=== PATIENT | female | born 1930 | race Caucasian/White ===

== ENCOUNTER → 2016-10-01 | Outpatient (CLI) | payer BC ==
[~2016-10-01] MED LIST: AMX500 PO; ASCO1CAP3 PO; ASPI81TA28 PO; ATOR10TA88 PO; BIOF500T PO; BTP80 PO; CALC-354 PO; CHOL100010 PO; CLC100X PO; CLOP1TAB15 PO; CYAN30SU SL; FERR324T4 PO; FOLI1TAB7 PO; INSDGIPEN SC; INSU100I SQ; INSU1INJ23 SC; INSUINJ4 SC; ISOS30TA35 PO; LOSA50TA6 PO; LSX20 PO; METO25TA56 PO; MISCTAB78 PO; NEPA0.6D OPL; OFLO0.3S4 OPR; PRDFOPS OPR; VITA400C28 PO; VTMD1000 PO; [UNRECOGNIZED DRUG - OTHER] PO
[2016-10-02 05:44] LABS: ESTIMATED AVERAGE GLUCOSE 194 mg/dl; HA1C FLAG Normal (Normal)
== END | disposition home or self-care (01) ==
LOC: C.LAB1850 14:17
PROVIDERS: ATTEND Nurse Practitioner Family
DX: E11.9 Type 2 diabetes mellitus without complications (principal)

== ENCOUNTER → 2016-10-16 | Outpatient (CLI) | payer BC ==
--- NOTE | 2016-10-16 11:11 | DIAGNOSTIC IMAGING REPORT ---
LEFT HAND MIN 3 VIEWS ROUTINE CLINICAL HISTORY: Left hand pain. COMPARISON: None FINDINGS: A ring is present on the fourth finger. There is no acute fracture or subluxation within the left hand. 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 Note is made of multiple linear radiodensities project along the distal shaft and head of the left third metacarpal. These appear to be within the patient. IMPRESSION: 1. No acute fracture or dislocation of the left hand. 2. 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 3. Numerous small linear radiodensities adjacent to the distal aspect of the left third metacarpal. These are probably within the patient although may be on the skin. These are indeterminate and could represent foreign bodies or surgical material. Correlation with physical exam and history is recommended. Electronically signed by: Roberto Mcgee M.D. 10/16/2016 11:09 AM Dictated Date/Time: 10/16/2016 11:03 AM
== END | disposition home or self-care (01) ==
LOC: C.RADBBURG 00:40
PROVIDERS: ATTEND Internal Medicine Pulmonary Disease
DX: M79.643 Pain in unspecified hand (principal); M19.042 Primary osteoarthritis, left hand; R93.7 Abnormal findings on diagnostic imaging of other parts of musculoskeletal system

== ENCOUNTER 2017-01-14 12:29 | Emergency (ER) | payer BC ==
[~2017-01-14] VITALS: Ht 157.5 cm; Wt 66.5 kg
[~2017-01-14 12:29] MED LIST changes: -ASPI81TA28 PO; +ATOR10TA82 PO; -ATOR10TA88 PO; -CLC100X PO; -CLOP1TAB15 PO; -FOLI1TAB7 PO; -INSDGIPEN SC; -INSU100I SQ; -LOSA50TA6 PO; -METO25TA56 PO; -VTMD1000 PO
[2017-01-14 12:35] VITALS: TEMP 36.7; Ht 157.5 cm; Wt 66.5 kg
[2017-01-14] MEDS ORDERED: SODIUM CHLORIDE 0.9% 500ML 500 ML IV STA (12:58)
[2017-01-14] MEDS ORDERED: HYDROCORTISONE ACETATE 25 MG SUPP PR STA (12:58)
[2017-01-14] MEDS ORDERED: HYDROCORTISONE HC 2.5% CRM 30GM TUBE EXT STA (12:58)
[2017-01-14] MEDS ORDERED: ONDANSETRON INJ 2 MG/ML 2 ML VIAL IV STA (12:58)
[2017-01-14] MEDS ORDERED: FENTANYL CITRATE INJ 50 MCG/1 ML 2 ML VIAL IV STA (12:58)
[2017-01-14] MEDS ORDERED: LIDOCAINE/EPINEPHRINE 1% 20 ML VIAL INFIL STA (12:58)
--- NOTE | 2017-01-14 13:03 | EMERGENCY ROOM VISIT NOTE ---
History Report prepared by Elder: Mónica Mendoza Under the Supervision of: Dr. Felice Narayan M.D. First contact with patient: 12:47 Chief Complaint: RECTAL PAIN Stated Complaint: RECTAL PAIN Nursing Triage Summary: Pt states hx of hemorrhoids. Rectal pain since Sun. Bright red rectal bleeding, "when I wipe it is there." History of Present Illness The patient is a 86 year old female who presents to the Emergency Room with complaints of constant rectal pain beginning 3 days ago. The patient states that she has a history of hemorrhoids and has some today. She reports that she last had a colonoscopy about 3 years ago. She notes that she is on Plavix and 1 baby Aspirin and has a history of strokes. The patient complains of bright red rectal bleeding beginning 3 days ago. She denies any abdominal pain. The daughter reports that she used a suppository yesterday and this morning. Source of History: patient Onset: 3 days ago Position: other (rectal) Quality: other (bright red bleeding) Timing: constant Associated Symptoms: No abdominal pain Note: Complains of bright red rectal bleeding. Review of Systems See HPI for pertinent positives & negatives. A total of 10 systems reviewed and were otherwise negative. Past Medical & Surgical Medical Problems: (1) Diabetes (2) Hypertension (3) Pneumonia (4) SVT Family History FHx: cancer FHx: diabetes FHx: heart disease Social History Smoking Status: Never Smoker Alcohol Use: none Marital Status: Housing Status: lives with family Occupation Status: retired Current/Historical Medications Scheduled Aspirin (Aspirin Ec), 81 MG PO DAILY Atorvastatin (Lipitor), 10 MG PO HS Bioflavonoid Products (Sheba-C), 2 TAB PO DAILY Calcium Carbonate-Cholecalcife (Caltrate 600+D), 1 TABLET PO DAILY Cholecalciferol (Vitamin D3), 1 TAB PO BID Clopidogrel (Plavix), 75 MG PO DAILY Docusate Sodium (Docusate Sodium), 1 CAP PO BID Folic Acid (Folvite), 1 MG PO DAILY Furosemide (Furosemide), 20 MG PO DAILY Insulin Glargine (Lantus Solostar), 25 UNITS SC QPM Insulin Lispro (Human) (Humalog), 12 UNITS SQ QAM Isosorbide Mononitrate Ext Rel (Imdur Ext Rel), 30 MG PO QAM Losartan Potassium (Cozaar), 50 MG PO DAILY Metoprolol Tartrate (Lopressor) (Lopressor), 3 TABS PO BID Sotalol HCl (Sotalol HCl), 80 MG PO BID Allergies Coded Allergies: Adhesives (Unverified Allergy, Mild, IRRITATION FROM ECG PATCHES/ LEADS, ) RANJEET Inhibitors (Unverified Allergy, Unknown, COUGH, 01/14/17) Codeine (Verified Allergy, Unknown, 01/14/17) Morphine (Unverified Allergy, Unknown, FEELS HIGH, 01/14/17) Physical Exam Vital Signs Date Time Temp Pulse Resp B/P Pulse Ox O2 Delivery O2 Flow Rate FiO2 01/14/17 14:41 60 16 131/68 97 01/14/17 13:44 60 20 146/71 95 Room Air 01/14/17 13:38 61 01/14/17 13:34 94 Room Air 01/14/17 12:35 36.7 74 18 139/81 95 Room Air Physical Exam GENERAL: Patient is a healthy-appearing well-nourished HEAD: Normocephalic atraumatic EYES: Ocular movements intact pupils equal and react to light OROPHARYNX mucous membranes are moist no exudates present no erythema or edema present NECK: Supple no nuchal rigidity CHEST: Good equal expansion LUNGS: Clear and equal to auscultation CARDIAC: Normal S1 and S2 ABDOMEN: Soft nontender no guarding BACK: No CVA tenderness EXTREMITIES: No pain upon palpation normal muscle strength in all groups no clubbing cyanosis or edema NEURO: Patient is following commands is answering questions appropriately. Alert and oriented x3 Cranial Nerves 2-12 grossly intact RECTAL: Multiple hemorrhoids that are exquisitely tender. Medical Decision & Procedures Laboratory Results 01/14/17 13:35 Red Blood Count 5.12, Mean Corpuscular Volume 85.2, Mean Corpuscular Hemoglobin 27.0, Mean Corpuscular Hemoglobin Concent 31.7, Mean Platelet Volume 12.2, Neutrophils (%) (Auto) 61.0, Lymphocytes (%) (Auto) 23.3, Monocytes (%) (Auto) 14.2, Eosinophils (%) (Auto) 0.8, Basophils (%) (Auto) 0.2, Neutrophils # (Auto ) 5.16, Lymphocytes # (Auto) 1.97, Monocytes # (Auto) 1.20, Eosinophils # (Auto ) 0.07, Basophils # (Auto) 0.02 01/14/17 13:35 Test 01/14/17 13:35 01/14/17 13:41 White Blood Count 8.46 K/uL (4.8-10.8) Red Blood Count 5.12 M/uL (4.2-5.4) Hemoglobin 13.8 g/dL (12.0-16.0) Hematocrit 43.6 % (37-47) Mean Corpuscular Volume 85.2 fL (80-100) Mean Corpuscular Hemoglobin 27.0 pg (25-34) Mean Corpuscular Hemoglobin Concent 31.7 g/dl (32-36) Platelet Count 136 K/uL (130-400) Mean Platelet Volume 12.2 fL (7.4-10.4) Neutrophils (%) (Auto) 61.0 % Lymphocytes (%) (Auto) 23.3 % Monocytes (%) (Auto) 14.2 % Eosinophils (%) (Auto) 0.8 % Basophils (%) (Auto) 0.2 % Neutrophils # (Auto) 5.16 K/uL (1.4-6.5) Lymphocytes # (Auto) 1.97 K/uL (1.2-3.4) Monocytes # (Auto) 1.20 K/uL (0.11-0.59) Eosinophils # (Auto) 0.07 K/uL (0-0.5) Basophils # (Auto) 0.02 K/uL (0-0.2) RDW Standard Deviation 38.8 fL (36.4-46.3) RDW Coefficient of Variation 12.5 % (11.5-14.5) Immature Granulocyte % (Auto) 0.5 % Immature Granulocyte # (Auto) 0.04 K/uL (0.00-0.02) Prothrombin Time 10.9 SECONDS (9.0-12.0) Prothromb Time International Ratio 1.0 (0.9-1.1) Activated Partial Thromboplast Time 22.4 SECONDS (21.0-31.0) Partial Thromboplastin Ratio 0.9 Est Creatinine Clear Calc Drug Dose 27.8 ml/min Estimated GFR () 43.0 Estimated GFR (Non- 37.1 BUN/Creatinine Ratio 19.8 (10-20) Calcium Level 9.2 mg/dl (8.5-10.1) Total Bilirubin 0.5 mg/dl (0.2-1) Direct Bilirubin 0.2 mg/dl (0-0.2) Aspartate Amino Transf (AST/SGOT) 26 U/L (15-37) Alanine Aminotransferase (ALT/SGPT) 27 U/L (12-78) Alkaline Phosphatase 72 U/L (45-117) Total Protein 7.2 gm/dl (6.4-8.2) Albumin 3.7 gm/dl (3.4-5.0) Lipase 201 U/L (73-393) Beta-Hydroxybutyric Acid 1.75 mg/dL (0.2-2.81) Bedside Hemoglobin 15.0 g/dl (12.0-16.0) Bedside Hematocrit 44 % (37-47) Bedside Sodium 139 mEq/L (135-144) Bedside Potassium 4.3 mEq/L (3.3-5.0) Bedside Chloride 97 mEq/L (101-112) Bedside Total CO2 28 mEq/l (24-31) Anion Gap 20.0 mmol/L (16-25) Bedside Blood Urea Nitrogen 28 mg/dl (7-18) Bedside Creatinine 1.2 mg/dl (0.6-1.3) Bedside Glucose (other) 319 mg/dl (70-99) Bedside Ionized Calcium (Paul) 1.15 mmol/l (1.12-1.32) Labs reviewed by ED physician. Medications Administered Medications (Trade) Dose Ordered Sig/Minnie Route Start Time Stop Time Status Last Admin Dose Admin Fentanyl Citrate (Fentanyl Inj) 25 mcg NOW STAT IV 01/14/17 12:58 01/14/17 13:03 DC 01/14/17 13:41 25 MCG Ondansetron HCl 4 mg 4 mg NOW STAT IV 01/14/17 12:58 01/14/17 13:03 DC 01/14/17 13:41 4 MG Sodium Chloride (Nss 500ml) 500 ml @ 999 mls/hr Q31M STAT IV 01/14/17 12:58 01/14/17 13:28 DC 01/14/17 13:41 999 MLS/HR Lidocaine/ Epinephrine (Xylocaine/Epine 1% Inj) 20 ml ONE STAT INFIL 01/14/17 12:58 01/14/17 13:03 DC 01/14/17 13:42 20 ML Hydrocortisone Acetate (Anusol Hc Supp) 25 mg NOW STAT MN 01/14/17 12:58 01/14/17 13:03 DC 01/14/17 13:43 25 MG Hydrocortisone (Proctozone Hc 2.5% Crm) 1 appln NOW STAT EXT 01/14/17 12:58 01/14/17 13:03 DC 01/14/17 13:53 1 APPLN Procedure Hemorrhoid Repair Indication: Hemorrhoid Location: Rectum Verbal consent was obtained after the risks and benefits were explained, including but not limited to bleeding, scarring, infection, and pain. At this time, the risks of the procedure are less than the risks of NOT performing the procedure. A time out was taken and the correct patient and site identified. The skin was prepped with betadine and a sterile field set. The wound was anesthetized with 4 ml of 1% lidocaine with epinephrine. The hemm cavity was entered with a number 11 blade and clot was removed. Debridement was not performed. Packing placed and a sterile dressing applied. Detailed wound care instructions and signs and symptoms of worsening infection reviewed with the patient. No complications and the patient tolerated the procedure well. ECG Indication: other (cardiac history) Rate (beats per minute): 79 Rhythm: other (paced) Findings: no acute ischemic change, no ectopy ED Course 1247: Past medical records reviewed. The patient was evaluated in room A10. A complete history and physical examination was performed. 1258: Hydrocortisone 1appln EXT, Hydrocortisone Acetate 25mg MN, Lidocaine/ Epinephrine 20ml INFIL, Sodium Chloride 500 ml @ 999 mls/hr IV, Zofran Inj 4mg IV, Fentanyl Inj 25mcg IV. 1421: Upon reexamination the patient is doing well. I discussed results and treatment plan with the patient. She verbalizes agreement and understanding. The patient is ready for discharge. Medical Decision Differential diagnosis: Etiologies such as diverticulosis, AVM, coagulopathy, colitis, inflammatory bowel disease, malignancy, Christine-Qureshi tear, esophagitis, peptic ulcer disease , variceal bleed, gastritis, epistaxis, fissure, hemorrhoids, as well as others were entertained. This is an 86-year-old female who presents emergency department for evaluation of hemorrhoids. The patient does have a large hemorrhoid along with some very small ones that is exquisitely tender. Based on this data hemorrhoid was excised as above. All large clot was removed. Bleeding was controlled in the patient's pain is much better. Her hemoglobin is stable and I feel she can be safely discharged home for follow-up with surgery. She was given fentanyl of the emergency department. The patient was also given Anbesol to use at home. Patient was in agreement with the treatment plan. Impression Primary Impression: Hemorrhoids Additional Impression: Hyperglycemia Scribe Attestation The scribe's documentation has been prepared under my direction and personally reviewed by me in its entirety. I confirm that the note above accurately reflects all work, treatment, procedures, and medical decision making performed by me. Departure Information Dispostion Home / Self-Care Referrals No Doctor, Assigned (PCP) Forms HOME CARE DOCUMENTATION FORM, IMPORTANT VISIT INFORMATION, WORK / SCHOOL INSTRUCTIONS Patient Instructions ED Hyperglycemia Diabetic, Hydrocortisone Acetate Rectal suppository, Hydrocortisone Pramoxine Hydrochloride Rectal cream, My [facility] Additional Instructions Follow up with Dr Bone's office You have been examined and treated today on an emergency basis only. This is not a substitute for, or an effort to provide, complete comprehensive medical care. It is impossible to recognize and treat all injuries or illnesses in a single emergency department visit. It is therefore important that you follow up closely with Joel Marino. Call as soon as possible for an appointment. Thank you for your time and consideration. I look forward to speaking with you again soon. Please don't hesitate to call us if you have any questions. Problem Qualifiers Primary Impression: Hemorrhoids Hemorrhoid type: perianal venous thrombosis Qualified Codes: K64.5 - Perianal venous thrombosis
[2017-01-14 13:34] VITALS: O2SAT 94
[2017-01-14] MEDS ORDERED: VTMD1000 PO (13:35)
[2017-01-14] MEDS ORDERED: INSU100I SQ (13:35)
[2017-01-14] MEDS ORDERED: FOLI1TAB7 PO (13:35)
[2017-01-14] MEDS ORDERED: ASPI81TA28 PO (13:35)
[2017-01-14] MEDS ORDERED: ATOR10TA82 PO (13:35)
[2017-01-14] MEDS ORDERED: CLOP1TAB15 PO (13:35)
[2017-01-14] MEDS ORDERED: CLC100X PO (13:35)
[2017-01-14] MEDS ORDERED: LOSA50TA6 PO (13:35)
[2017-01-14] MEDS ORDERED: INSDGIPEN SC (13:35)
[2017-01-14] MEDS ORDERED: METO25TA56 PO (13:35)
[2017-01-14 13:42] LABS: BASO % 0.2 %; BASO ABS # 0.02 K/uL (0-0.2); COMPLETE YES; EOS % 0.8 %; HEMATOCRIT 43.6 % (37-47); IG% 0.5 %; LYMPH % 23.3 %; LYMPH ABS # 1.97 K/uL (1.2-3.4); MEAN CELL VOLUME 85.2 fL (80-100); MEAN CORPUSCULAR HGB CONC 31.7 g/dl (32-36); MEAN PLATELET VOLUME 12.2 fL (7.4-10.4); MONO % 14.2 %; PLATELET COUNT 136 K/uL (130-400); RED BLOOD COUNT 5.12 M/uL (4.2-5.4); WHITE BLOOD COUNT 8.46 K/uL (4.8-10.8)
[2017-01-14 14:02] LABS: PARTIAL THROMBOPLASTIN RATIO 0.9; PROTHROMBIN TIME (PATIENT) 10.9 SECONDS (9.0-12.0)
[2017-01-14 14:05] LABS: BUN/CREATININE RATIO 19.8 (10-20); CALCIUM 9.2 mg/dl (8.5-10.1); CREATININE 1.3 mg/dl (0.60-1.20); POTASSIUM 4.2 mmol/L (3.5-5.1)
[2017-01-14 14:15] LABS: BETA-HYDROXYBUTYRATE 1.75 mg/dL (0.2-2.81)
[2017-01-14 14:41] VITALS: BP 131/68; PULSE 60; O2SAT 97
[2017-01-14 15:22] LABS: ISTAT CREATININE 1.2 mg/dl (0.6-1.3); ISTAT IONIZED CALCIUM 1.15 mmol/l (1.12-1.32)
== END 2017-01-14 14:46 | disposition home or self-care (01) ==
LOC: C.EDB 12:30 → C.EDA 14:46
DX: K64.5 Perianal venous thrombosis (principal); E11.65 Type 2 diabetes mellitus with hyperglycemia; Z79.01 Long term (current) use of anticoagulants; Z79.82 Long term (current) use of aspirin; Z86.73 Personal history of transient ischemic attack (TIA), and cerebral infarction without residual deficits; I10 Essential (primary) hypertension; Z87.01 Personal history of pneumonia (recurrent); I47.1 Supraventricular tachycardia; Z80.9 Family history of malignant neoplasm, unspecified; Z83.3 Family history of diabetes mellitus; Z79.899 Other long term (current) drug therapy; Z79.4 Long term (current) use of insulin

== ENCOUNTER → 2017-01-30 | Outpatient (CLI) | payer BC ==
[~2017-01-30] MED LIST changes: -AMX500 PO; -ASCO1CAP3 PO; +ASPI81TA28 PO; -CHOL100010 PO; +CLC100X PO; +CLOP1TAB15 PO; -CYAN30SU SL; -FERR324T4 PO; +FOLI1TAB7 PO; +INSDGIPEN SC; +INSU100I SQ; -INSU1INJ23 SC; -INSUINJ4 SC; +LOSA50TA6 PO; +METO25TA56 PO; -MISCTAB78 PO; -NEPA0.6D OPL; -OFLO0.3S4 OPR; -PRDFOPS OPR; -VITA400C28 PO; +VTMD1000 PO; -[UNRECOGNIZED DRUG - OTHER] PO
[2017-01-30 14:51] LABS: ESTIMATED AVERAGE GLUCOSE 229 mg/dl; HA1C FLAG Normal (Normal)
== END | disposition home or self-care (01) ==
LOC: C.LAB1850 12:24
PROVIDERS: ATTEND Nurse Practitioner Family
DX: E11.65 Type 2 diabetes mellitus with hyperglycemia (principal)

== ENCOUNTER → 2017-09-24 | Outpatient (CLI) | payer BC ==
[~2017-09-24] MED LIST changes: -FOLI1TAB7 PO; +FOLI1TAB8 PO
== END | disposition home or self-care (01) ==
LOC: C.LABSPEC 12:58
PROVIDERS: ATTEND Physician Assistant
DX: D49.4 Neoplasm of unspecified behavior of bladder (principal); N18.9 Chronic kidney disease, unspecified; R41.82 Altered mental status, unspecified

== ENCOUNTER → 2017-10-15 | Outpatient (CLI) | payer BC ==
[2017-10-15 17:17] LABS: HEMOGLOBIN A1C 8.2 % (4.5-5.6)
== END | disposition home or self-care (01) ==
LOC: C.LAB1850 16:12
PROVIDERS: ATTEND Nurse Practitioner Family
DX: E11.65 Type 2 diabetes mellitus with hyperglycemia (principal)

== ENCOUNTER 2018-01-01 17:55 | Emergency (ER) | payer BC ==
[~2018-01-01] VITALS: Ht 160 cm; Wt 68.0 kg
[2018-01-01 18:01] VITALS: TEMP 36.5; Ht 160 cm; Wt 68.0 kg
[2018-01-01] MEDS ORDERED: OXYMETAZOLINE HCL 0.05% NA SPR 15 ML BTL ONE (18:06)
[2018-01-01] MEDS ORDERED: ESCI1TAB6 PO (18:20)
[2018-01-01] MEDS ORDERED: WARF5TAB7 PO ×2 (18:20)
[2018-01-01] MEDS ORDERED: CZR25 PO (18:20)
[2018-01-01] MEDS ORDERED: INSU100I SC (18:20)
[2018-01-01 18:57] LABS: INR 1.8 (0.9-1.1); PTT PATIENT 29.2 SECONDS (21.0-31.0)
--- NOTE | 2018-01-01 19:28 | EMERGENCY ROOM VISIT NOTE ---
ED Visit Note First contact with patient: 18:20 CHIEF COMPLAINT: Nosebleed HISTORY OF PRESENT ILLNESS: This 87-year-old female patient developed sudden onset of a nosebleed about 2.5 hours ago. The bleeding has not stopped with pressure. There was no trauma to the nose and no recent upper respiratory infection. The patient is on Coumadin o and Plavix. No difficulty breathing, no cough, no headache or sore throat. She does report a history of similar nosebleed approximately 1 week ago, however this improved with direct pressure more quickly. She has not seen ENT, however has discussed nosebleeds with her PCP, who did recommend nasal saline gel. She has been using the gel, however still experiences the nosebleeds. The patient denies any pain. REVIEW OF SYSTEMS: A complete 6 point review of systems was reviewed with the patient with pertinent positives and negatives as per history of present illness. All else were negative. PMH: Atrial fibrillation, pacemaker, hypertension, hyperlipidemia, diabetes SOCIAL HISTORY: The patient lives locally with family. She denies drug, alcohol , tobacco use. PHYSICAL EXAM: Vital Signs: Reviewed Nurse's notes. GENERAL: The patient is sitting upright holding the nose and is somewhat agitated. No dyspnea noted. She is well-appearing otherwise and well-nourished. NEURO: The patient is alert , oriented, coherent, and cooperative. HEART: RRR, no murmurs, gallops, or rubs. LUNGS: CTA bilaterally. No wheezes, rhonchi, or rales. HEENT: Normocephalic, atraumatic. TMs pearly elizondo without erythema or injection. Bilateral EOMs clear. Exam of the nostrils reveals a blood clot with mild oozing from the right nostril. There is a clot on the septum. There is no active hemorrhage or significant bleeding. There is no blood in the posterior pharynx. EMERGENCY DEPARTMENT COURSE: The patient was given oxymetazoline prior to my examination. On my examination, there is some very mild, slow oozing of blood from the right nasal septum. A nasal clip was placed and allowed to sit for approximately 20 minutes. INR checked and was 1.8. The patient was reassessed and there is no active bleeding noted. The blood clot does remain in place over the septum. I did educate the patient regarding proper home management for nosebleeds. She was provided the bottle of Afrin as well as nasal clips to use if needed for rebleed. I discussed discharge instructions with the patient and daughter at bedside. They verbalized understanding. All questions answered to patient's satisfaction. Discharge instructions reviewed, the patient was discharged home in good condition. The patient was seen and evaluated by Dr. Borrero. I attest that I have personally reviewed the patient's current medication list. Blood Pressure Screening: Patient was found to have a slightly elevated blood pressure due to circumstances. I do not believe that the patient requires hypertension monitoring. Differential diagnosis includes epistaxis, trauma, irritant, thrombocytopenia, allergic rhinitis, drug use, electrolyte abnormality, foreign body, hemophilia, von Willebrand disease, warfarin toxicity, malignancy, and others DIAGNOSIS: Epistaxis DISCHARGE INSTRUCTIONS & TREATMENT: Firm pressure on the nose for 15 minutes if bleeding recurs. If you are unable to get it stopped after that, return to the emergency department for further exam and treatment. Blow the nose very gently if at all over the next 2 days. Don't put any objects into the nose Problem List Medical Problems: (1) Diabetes Status: Chronic (2) Hypertension Status: Chronic (3) Pneumonia Status: Chronic (4) SVT Status: Chronic Current/Historical Medications Scheduled Atorvastatin (Lipitor), 10 MG PO HS Bioflavonoid Products (Sheba-C), 2 TAB PO DAILY Calcium Carbonate-Cholecalcife (Caltrate 600+D), 1 TABLET PO DAILY Cholecalciferol (Vitamin D3), 1 TAB PO BID Clopidogrel (Plavix), 75 MG PO DAILY Docusate Sodium (Docusate Sodium), 1 CAP PO BID Escitalopram Oxalate (Lexapro), 5 MG PO DAILY Folic Acid (Folvite), 1 MG PO DAILY Furosemide (Furosemide), 20 MG PO DAILY Insulin Glargine (Lantus Solostar), 30 UNITS SC QPM Insulin Lispro (Human) (Humalog), 16 UNITS SQ QAM Insulin Lispro (Human) (Humalog), 14 UNITS SC QPM Isosorbide Mononitrate Ext Rel (Imdur Ext Rel), 30 MG PO QAM Losartan Potassium (Losartan Potassium), 25 MG PO DAILY Metoprolol Tartrate (Lopressor) (Lopressor), 100 MG PO BID Warfarin Sod (Jantoven), 5 MG PO 2XWK Warfarin Sod (Jantoven), 2.5 MG PO 5XWK Allergies Coded Allergies: Adhesives (Unverified Allergy, Mild, IRRITATION FROM ECG PATCHES/ LEADS, ) RANJEET Inhibitors (Unverified Allergy, Unknown, COUGH, 01/01/18) Codeine (Verified Allergy, Unknown, 01/01/18) Morphine (Unverified Allergy, Unknown, FEELS HIGH, 01/01/18) Vital Signs Date Time Temp Pulse Resp B/P (MAP) Pulse Ox O2 Delivery O2 Flow Rate FiO2 01/01/18 19:43 60 15 169/92 93 01/01/18 18:01 36.5 64 20 169/84 94 Room Air Laboratory Results Test 01/01/18 18:32 Prothrombin Time 19.1 SECONDS (9.0-12.0) Prothromb Time International Ratio 1.8 (0.9-1.1) Activated Partial Thromboplast Time 29.2 SECONDS (21.0-31.0) Partial Thromboplastin Ratio 1.1 Medications Administered Medications (Trade) Dose Ordered Sig/Minnie Route Start Time Stop Time Status Last Admin Dose Admin Oxymetazoline HCl (Afrin 0.05% Nasal [place]) 75 sprays STK-MED ONCE .ROUTE 01/01/18 18:06 01/01/18 18:07 DC 01/01/18 18:06 75 SPRAYS Departure Information Impression Primary Impression: Epistaxis Dispostion Home / Self-Care Condition GOOD Referrals Joel Marino PA-C (PCP) Maris Reina M.D. Patient Instructions ED Nosebleed, [facility] Additional Instructions You have been treated in the Emergency Department today for your Nose Bleed ( Epistaxis). Hold your Coumadin tonight. You may resume this tomorrow. Please let your provider know of the nosebleed and needing to skip the Coumadin. Your INR here in the emergency department was 1.8. If you experience a rebleed, use the Afrin nasal spray, 1 spray into the affected nostril. Apply direct pressure with the nose clip for 15 minutes. If when you check after this time, the bleeding continues, you may repeat the spray and pressure. If the bleeding is not controlled after the second dose, return to the emergency department. Do NOT blow your nose for the next few days. This can result in recurrence of your nosebleed. You should consider using a humidifier to help moisten the air and decrease instances of nosebleeds. You can use [id number] saline nasal sprays to help moisten the nasal mucosa and decrease instances of nosebleeds. As with any trip to the Emergency Department, you should follow-up with your Primary Care Provider from today's visit. Return to the emergency department if your symptoms persist despite treatment plan outlined above or if the following symptoms occur: uncontrollable nosebleed , dizziness, lightheadedness, pre-syncope, or re-bleed.
[2018-01-01 19:43] VITALS: BP 169/92; PULSE 60; O2SAT 93
--- NOTE | 2018-01-02 00:45 | EMERGENCY ROOM VISIT NOTE ---
ED Visit Note First contact with patient: 18:20 I have personally seen and evaluated the patient with the PA. I agree with the diagnosis and management decisions and have been personally involved in the case. Please see Alanna Dawson PA-C's notes for further details of the history, physical and visit.
== END 2018-01-01 19:45 | disposition home or self-care (01) ==
LOC: C.EDB 17:56 → C.EDD 19:45
DX: R04.0 Epistaxis (principal); I10 Essential (primary) hypertension; E11.9 Type 2 diabetes mellitus without complications; E78.5 Hyperlipidemia, unspecified; Z79.01 Long term (current) use of anticoagulants; Z79.4 Long term (current) use of insulin; Z79.899 Other long term (current) drug therapy; Z91.048 Other nonmedicinal substance allergy status; Z88.6 Allergy status to analgesic agent

== ENCOUNTER → 2018-03-18 | Outpatient (CLI) | payer BC ==
[~2018-03-18] MED LIST changes: -ASPI81TA28 PO; -BTP80 PO; +CZR25 PO; +ESCI1TAB6 PO; +INSU100I SC; -LOSA50TA6 PO; +WARF5TAB7 PO
[2018-03-19 06:10] LABS: HEMOGLOBIN A1C 7.3 % (4.5-5.6)
== END | disposition home or self-care (01) ==
LOC: C.LAB1850 11:56
PROVIDERS: ATTEND Nurse Practitioner Family
DX: E11.65 Type 2 diabetes mellitus with hyperglycemia (principal)

== ENCOUNTER 2019-01-31 21:28 | Inpatient (IN) ==
[2019-01-31] MEDS ORDERED: OXYMETAZOLINE 0.05% 30 ML BTL NAE ONE (22:09)
[2019-01-31] MEDS ORDERED: SODIUM CHLORIDE 0.9% 1000ML 500 ML IV ONE (22:11)
[2019-01-31] MEDS ORDERED: OXYMETAZOLINE 0.05% 30 ML BTL ONE (22:11)
[2019-01-31 22:27] LABS: Hematocrit (blood only) 36.4 % (37-47); Hemoglobin 11.3 g/dL (12.0-16.0); Mean Corpuscular Volume 83.5 fL (80-100); Mean Platelet Volume 11.1 fL (7.4-10.4); Platelet Count 194 K/uL (130-400); RDW Coefficient of Variation 14.1 % (11.5-14.5); RDW Standard Deviation 43.3 fL (36.4-46.3); Red Blood Count 4.36 M/uL (4.2-5.4); White Blood Count 6.94 K/uL (4.8-10.8)
[2019-01-31 22:31] LABS: INR 2.9 (0.9-1.1); Partial Thromboplastin Ratio 1.1; Partial Thromboplastin Time 29.2 Seconds (21.0-31.0); Prothrombin Time 27.3 Seconds (9.0-12.0)
--- NOTE | 2019-01-31 23:41 | History & Physical Report ---
Date of Service January 31, 2019 Assessment & Plan (1) Severe epistaxis: Patient presents to the emergency department with her fourth episode of severe bleeding in the past month. She had surgery by Dr. Reina on 01/21/2019. She was assessed by Dr. Reina in the ED [facility], and he reports plans to have patient go to surgery on 02/04. The patient will be admitted to a monitored bed. Her present INR is 2.9, and will not be reversed unless she has recurrent bleeding. Follow serial laboratories. Consult Dr. Reina. Present on Admission?: Yes (2) Chronic anticoagulation: Hold warfarin this time. The patient has recurrent epistaxis, will give vitamin K to reverse the INR. Discussed with Dr. Reina, who feels that patient needs to be 3 days off of bleeding before he can perform surgery again on 02/04. As her INR drops more toward normal, patient may be placed on heparin IV to protect her from stroke associated with AVR, and could be stopped quickly if there is a recurrence of bleeding. We will consult her tavern keeper Dr. Jose Luis Mosqueda, to help manage anticoagulation during this interval. We will continue metoprolol tartrate 100 mg p.o. twice daily with hold parameters, losartan 25 mg p.o. every morning and isosorbide mononitrate 30 mg p.o. every morning. We will hold clopidogrel 75 mg every morning, warfarin and furosemide 20 mg every morning. Present on Admission?: Yes (3) H/O aortic valve replacement: See above Present on Admission?: Yes (4) CAD (coronary artery disease), solomon coronary artery: See above Present on Admission?: Yes (5) Hypertension: See above Present on Admission?: Yes (6) Diabetes: Hold Humalog 50/50 mix until patient is eating regularly. Place on Accu-Cheks before meals and at bedtime with NovoLog coverage per scale. Present on Admission?: Yes (7) Hyperlipidemia: Continue atorvastatin 10 mg p.o. every evening Present on Admission?: Yes History of Present Illness Chief Complaint: The patient presents to the emergency department with a recurrence of severe nosebleeding that began earlier in the day prior to arrival. Primary Care Provider: Paresh Marino PA-C The patient is a 88-year-old female with a past medical history including chronic anticoagulation with warfarin for aortic valve replacement, who is now had her fourth nosebleed in the past month. She was taken to the OR by Dr. Reina on 01/21/2019, and had been doing well until today when the recurrent nosebleed occurred. Her bleeding has been controlled by placement of a Rhino Rocket in the left nares by the ED. Allergies Allergy/AdvReac Type Severity Reaction Status Date / Time adhesive Allergy Mild IRRITATION Verified 01/31/19 23:30 FROM ECG PATCHES/ LEADS RANJEET Inhibitors Allergy Unknown COUGH Verified 01/31/19 23:30 codeine Allergy Unknown hallucinate Verified 01/31/19 23:30 s morphine Allergy Unknown FEELS HIGH Verified 01/31/19 23:30 prednisone Allergy Unknown unknown Verified 01/31/19 23:30 per daughter Home Medications Home Medications Medication Instructions Recorded Confirmed Type Caltrate 600 + D 1 tab PO QAM 06/30/18 01/21/19 History Humalog Mix 50-50 Insuln U-100 14 unit SUBCUT QPM 06/30/18 01/21/19 History Humalog Mix 50-50 Insuln U-100 18 unit SUBCUT QAM 06/30/18 01/21/19 History Lantus U-100 Insulin 30 unit SUBCUT QPM 06/30/18 01/21/19 History atorvastatin 10 mg PO QPM 06/30/18 01/21/19 History cholecalciferol (vitamin D3) 5,000 unit PO QAM 06/30/18 01/21/19 History [Vitamin D3] clopidogrel [Plavix] 75 mg PO QAM 06/30/18 01/21/19 History fluorometholone 1 drp OPHTHALMIC (EYE) QAM 06/30/18 01/21/19 History furosemide [Lasix] 20 mg PO QAM 06/30/18 01/21/19 History isosorbide mononitrate 30 mg PO QAM 06/30/18 01/21/19 History losartan 25 mg PO QAM 06/30/18 01/21/19 History warfarin 2.5 mg PO .SUN/TUES/THURS/SAT 06/30/18 01/21/19 History warfarin 5 mg PO .MON/THU/FRI 06/30/18 01/21/19 History metoprolol tartrate [Lopressor] 100 mg PO BID 08/16/18 01/21/19 History aspirin 81 mg PO DAILY 01/31/19 01/31/19 History Past Med/Surg History Medical History Epistaxis (Acute) ALL (acute lymphoblastic leukemia) Atrial fibrillation Bronchiolitis obliterans organizing pneumonia CKD (chronic kidney disease) stage 3, GFR 30-59 ml/min Diabetes on insulin GERD (gastroesophageal reflux disease) Hearing deficit History of pacemaker Hx of congestive heart failure Hypertension 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 Surgical History H/O colonoscopy H/O: hysterectomy History of cholecystectomy Hx of aortic valve replacement 2016 - [facility] Hx of cornea transplant right and left Hx of tooth extraction Pacemaker Social History Preferred Language: Latvian Communication Ability: Effective Beliefs That Will Affect Care: None Current Living Situation: Family Feels Safe at Home: Yes Smoking Status: Never smoker Hx Alcohol Use: No Hx Substance Use: No Review of Systems Review of Systems: The patient denies chest pain, palpitations, shortness of breath, dyspnea on exertion, cough, lower extremity swelling, fevers, chills, sweats, vomiting, diarrhea , constipation, abdominal pain, pelvic pain, blood in urine or stool, dysuria, urinary frequency or urgency, memory loss, loss of consciousness, rash, imbalance, focal weakness, numbness or tingling in arms or legs, generalized arthralgias or myalgias, back or neck pain, or night sweats. The review of systems is otherwise negative other than for that already noted above, and at least 10 systems have been reviewed. Physical Exam Physical Exam: The patient is awake, alert and oriented 3, appears fatigued and sleepy, has Rhino Rocket in left nares, with blood base of nose, lying in bed and in otherwise no acute distress. HEENT--PERRL, EOMI, mucous membranes and oropharynx dry. Neck--supple. No JVD. No bruits. Thyroid normal, trachea midline, no adenopathy. Heart--normal S1 and S2. No murmurs, rubs or gallops. Lungs--clear bilaterally, no respiratory distress, no accessory muscle use. Abdomen--normal bowel sounds and soft. Nontender. Nondistended, no hernias or masses, no organomegaly. Extremities--no cyanosis or clubbing. No edema. There are good distal pulses b/l. Dermatologic--normal skin turgor, normal color, no abnormal lymph nodes, no rash. Neurologic--cranial nerves II through XII grossly intact. Rheumatologic--normal range of motion. Psychiatric--normal affect. Results & Data Vital Signs (Past 12 Hours) Vital Signs Temp Pulse Resp BP Pulse Ox 01/31/19 22:20 60 29 H 142/71 H 95 01/31/19 22:16 60 26 H 153/71 H 96 01/31/19 22:15 60 26 H 96 01/31/19 22:09 98.2 F 61 27 H 85/52 L 94 01/31/19 22:02 67 36 H 01/31/19 22:01 62 34 H 98/49 L 93 01/31/19 21:53 63 30 H 85/52 L 94 Laboratory Results Laboratory Results WBC 6.94 K/uL (4.8-10.8) 01/31/19 21:49 RBC 4.36 M/uL (4.2-5.4) 01/31/19 21:49 Hgb 11.3 g/dL (12.0-16.0) L 01/31/19 21:49 Hct 36.4 % (37-47) L 01/31/19 21:49 MCV 83.5 fL (80-100) 01/31/19 21:49 MCH 25.9 pg (25-34) 01/31/19 21:49 MCHC 31.0 g/dL (32-36) L 01/31/19 21:49 RDW Std Deviation 43.3 fL (36.4-46.3) 01/31/19 21:49 RDW Coeff of Debora 14.1 % (11.5-14.5) 01/31/19 21:49 Plt Count 194 K/uL (130-400) 01/31/19 21:49 MPV 11.1 fL (7.4-10.4) H 01/31/19 21:49 PT 27.3 Seconds (9.0-12.0) H 01/31/19 21:49 INR 2.9 (0.9-1.1) H 01/31/19 21:49 APTT 29.2 Seconds (21.0-31.0) 01/31/19 21:49 PTT Ratio 1.1 01/31/19 21:49 Code Status & VTE Plan Code Status Full code VTE Prophylaxis Plan VTE Prophylaxis will be ordered: Yes
--- NOTE | 2019-02-01 00:08 | Emergency Department Note ---
Entered by Theresa Zamora acting as a scribe for ED Provider Note CHIEF COMPLAINT: Nose bleed HISTORY OF PRESENT ILLNESS: The patient is a 88 year old female who presents to the Emergency Room with complaints of a persistent left-sided nose bleed that began one hour prior to arrival. Per the patient's family, this is similar to prior episodes of nose bleeds for the patient. The patient's family states that the patient has been spitting up blood because the blood is running down her throat. The patient's family states that the patient recently had surgery to help with these nose bleeds, and states that Dr. Syed cauterized the left maxillary and frontal sinuses. The patient's family states that the patient had an appointment with Dr. Syed today, and states that Dr. Syed was going to remove the patient's gel foam out of the left side of her nose, but states that the bleeding began so he did not remove it. The patient's family states that the patient is no longer on Plavix but states that the patient is still on Coumadin. The patient states that she took her Coumadin tonight. The patient's family states that the patient is also on Aspirin regularly. The patient's family states that the patient has been weak Pt denies LOC, headache, fevers, chills, diaphoresis, visual changes, neck pain, chest pain, breathing difficulties, nausea, abdominal pain, back pain, melena, hematochezia, urinary symptoms, numbness, weakness, lymphadenopathy, rash, or other complaints. REVIEW OF SYSTEMS: See HPI for pertinent positives and negatives. A total of ten systems were reviewed and were otherwise negative. PMHx/PSHx: Recurrent epistaxis Diabetes HTN CHF CVA CKD Stage III Afib GERD ALL Cholecystectomy Hysterectomy Pacemaker SOCIAL HISTORY: Patient lives at home. PHYSICAL EXAM: GENERAL: Awake, alert, uncomfortable-appearing, in severe distress HENT: Normocephalic, atraumatic. Actively hemorrhaging from nasal passages. Mild posterior bleeding noted. EYES: PERRL. Normal conjunctiva. Sclera non-icteric. NECK: Inspection normal. Non-tender. Supple. No nuchal rigidity. FROM. No m asses. RESPIRATORY: Clear to auscultation. No wheezes. No rales. Normal respiratory effort. CARDIAC: Normal rate. Normal rhythm. No murmurs. No rubs. Extremities warm and well perfused. Pulses equal. No JVD. GI: Soft, non-distended. No tenderness to palpation. No rebound or guarding. No masses. RECTAL: Deferred. MUSCULOSKELETAL: Atraumatic. Chest examination reveals no tenderness. The back is symmetrical on inspection without obvious abnormality. There is no CVA tenderness to palpation. No joint edema. LOWER EXTREMITIES: Calves are equal size bilaterally and non-tender. No edema. Chronic venous discoloration of lower legs. NEURO: Normal sensorium. No sensory or motor deficits noted. SKIN: No rash or jaundice noted. PROCEDURE: Anterior Nasal Packing Indication: Hemorrhage Verbal consent obtained. Risks and benefits were explained with the usual customary discussion. A time out was taken. Clots were removed with suction. T he left naris was prepped with Afrin. A 7.5-cm nasal balloon was placed in a standard fashion. The patient tolerated this well. Hemostasis was achieved. No complications. EMERGENCY DEPARTMENT COURSE: 2139: Past medical records reviewed. The patient was evaluated in room A12B, and a complete history and physical examination were performed. 2149: I discussed the case with Dr. Travis who states that he will come in to evaluate the patient. 2154: Afarin was applied. 2201: Rhino rocket in place. 2236: Dr. Travis evaluated the patient. 2304: I discussed the case with Dr. Caicedo-[facility] Hospitalist who accepted the patient for further evaluation. MEDICAL DECISION MAKING: Patient presented to emergency department with acute epistaxis. She has had multiple episodes in the past. She is on anticoagulation. Differential includes anterior epistaxis, posterior epistaxis, coagulopathy, anemia, hemorrhage, as well as others. Physical examination revealed the patient to be in significant distress with active bleeding. Her physical examination was unremarkable otherwise except for the HEENT portion. She had her nasal passages suctioned. The obvious source of bleeding cannot be identified as there was already Gelfoam in the left naris. Bleeding was coming mostly from the left side. I did consult with her ENT physician, Dr. syed. Afrin was applied. ENT recommended insertion of a large nasal balloon. This was performed. This resulted in hemostasis. The patient had blood work obtained. She had fluids administered. Her CBC reveals a mild anemia. Her INR reveals an elevated result at 2.9 consistent with her Coumadin use. ENT recommended the patient be admitted to the hospital given the severity of the hemorrhage. A consultation was placed with Dr. Benji Caicedo. He evaluated the patient and admitted her for further management. IMPRESSION: Severe epistaxis PLAN: Admit The scribe's documentation has been prepared under my direction and personally reviewed by me in its entirety. I confirm that the note above accurately reflects all work, treatment, procedures, and medical decision making performed by me. 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 Surgical History H/O colonoscopy H/O: hysterectomy History of cholecystectomy Hx of aortic valve replacement 2016 - [facility] Hx of cornea transplant right and left Hx of tooth extraction Pacemaker Social History Preferred Language: Slovenian Communication Ability: Effective Beliefs That Will Affect Care: None Current Living Situation: Family Feels Safe at Home: Yes Smoking Status: Never smoker Hx Alcohol Use: No Hx Substance Use: No Results & Data Vital Signs Vital Signs - 24 hr 01/31/19 21:53 01/31/19 22:01 01/31/19 22:02 Temperature Temperature Source Sepsis Recent Fever Within 48 Hours Sepsis New/Unexplained Change in Mental Status Sepsis Action Taken by Nursing Pulse Rate 63 62 67 Pulse Rate from SpO2 Sensor 63 62 61 Respiratory Rate 30 H 34 H 36 H Respiratory Effort / Characteristics Respiratory Depth Respiratory Pattern Blood Pressure 85/52 L 98/49 L Blood Pressure Mean 63 65 Blood Pressure Position Pulse Oximetry 94 93 Oxygen Delivery Method 01/31/19 22:09 01/31/19 22:15 01/31/19 22:16 Temperature 36.8 C Temperature Source Oral Sepsis Recent Fever Within 48 Hours No Sepsis New/Unexplained Change in Mental Status No Sepsis Action Taken by Nursing No Action Required Pulse Rate 61 60 60 Pulse Rate from SpO2 Sensor 61 60 Respiratory Rate 27 H 26 H 26 H Respiratory Effort / Characteristics Non-Labored Spontaneous Respiratory Depth Normal Respiratory Pattern Regular Blood Pressure 85/52 L 153/71 H Blood Pressure Mean 63 98 Blood Pressure Position Lying Pulse Oximetry 94 96 96 Oxygen Delivery Method Room Air Room Air Room Air 01/31/19 22:20 01/31/19 22:30 01/31/19 22:31 Temperature Temperature Source Sepsis Recent Fever Within 48 Hours Sepsis New/Unexplained Change in Mental Status Sepsis Action Taken by Nursing Pulse Rate 60 60 60 Pulse Rate from SpO2 Sensor 60 60 60 Respiratory Rate 29 H 30 H 32 H Respiratory Effort / Characteristics Respiratory Depth Respiratory Pattern Blood Pressure 142/71 H 141/74 H Blood Pressure Mean 94 96 Blood Pressure Position Pulse Oximetry 95 97 95 Oxygen Delivery Method 01/31/19 22:46 01/31/19 23:00 01/31/19 23:01 Temperature Temperature Source Sepsis Recent Fever Within 48 Hours Sepsis New/Unexplained Change in Mental Status Sepsis Action Taken by Nursing Pulse Rate 60 61 61 Pulse Rate from SpO2 Sensor 60 61 61 Respiratory Rate 30 H 21 24 Respiratory Effort / Characteristics Respiratory Depth Respiratory Pattern Blood Pressure 119/66 136/72 Blood Pressure Mean 83 93 Blood Pressure Position Pulse Oximetry 96 97 97 Oxygen Delivery Method 01/31/19 23:16 01/31/19 23:30 01/31/19 23:31 Temperature Temperature Source Sepsis Recent Fever Within 48 Hours Sepsis New/Unexplained Change in Mental Status Sepsis Action Taken by Nursing Pulse Rate 60 60 60 Pulse Rate from SpO2 Sensor 60 60 60 Respiratory Rate 20 26 H 30 H Respiratory Effort / Characteristics Respiratory Depth Respiratory Pattern Blood Pressure 130/71 135/66 Blood Pressure Mean 90 89 Blood Pressure Position Pulse Oximetry 97 96 96 Oxygen Delivery Method 01/31/19 23:46 01/31/19 23:55 Temperature Temperature Source Sepsis Recent Fever Within 48 Hours Sepsis New/Unexplained Change in Mental Status Sepsis Action Taken by Nursing Pulse Rate 60 60 Pulse Rate from SpO2 Sensor 60 Respiratory Rate 21 16 Respiratory Effort / Characteristics Respiratory Depth Respiratory Pattern Blood Pressure 140/63 140/63 Blood Pressure Mean 88 Blood Pressure Position Pulse Oximetry 95 95 Oxygen Delivery Method Room Air Home Medications Current Medication List: was personally reviewed by me Laboratory Data Attestation: I reviewed the patient's lab results. Result diagrams: 01/31/19 21:49 Lab Results 01/31/19 01/31/19 Range/Units 21:49 21:49 WBC 6.94 (4.8-10.8) K/uL RBC 4.36 (4.2-5.4) M/uL Hgb 11.3 L (12.0-16.0) g/dL Hct 36.4 L (37-47) % MCV 83.5 (80-100) fL MCH 25.9 (25-34) pg MCHC 31.0 L (32-36) g/dL RDW Std Deviation 43.3 (36.4-46.3) fL RDW Coeff of Debora 14.1 (11.5-14.5) % Plt Count 194 (130-400) K/uL MPV 11.1 H (7.4-10.4) fL PT 27.3 H (9.0-12.0) Seconds INR 2.9 H (0.9-1.1) APTT 29.2 (21.0-31.0) Seconds PTT Ratio 1.1 Administered Medications Discontinued Medications Sodium Chloride (Nss 1000ml) 500 mls @ 999 mls/hr IV .Q31M ONE Stop: 01/31/19 22:41 Last Infusion: 01/31/19 22:50 Dose: 0 mls/hr Documented by: [id number] Admin: 01/31/19 22:18 Dose: 999 mls/hr Documented by: [id number] Oxymetazoline HCl (Afrin 0.05%) 2 sprays JAMES NOW ONE Stop: 01/31/19 22:10 Last Admin: 01/31/19 22:18 Dose: 2 sprays Documented by: [id number] Oxymetazoline HCl (Afrin 0.05%) Confirm Administered Dose 75 sprays .ROUTE .STK- MED ONE Stop: 01/31/19 22:12 Last Admin: 01/31/19 22:18 Dose: Not Given Documented by: [id number] Blood Pressure Blood Pressure Findings: Elevated blood pressure Blood Pressure Disposition: further management by hospitalist Discharge Plan Visit Data Chief Complaint: Nose Bleed (Major) Stated Complaint: NOSE BLEED ED Provider: Stephen Mireles Discharge Problem: Severe epistaxis Patient Disposition: Being Evaluated by Hospitalist Discharge Instructions Interventions: ED Discharge Assessment Last Done: 01/31/19 23:55 Forms Stand Alone Forms: Fon Prescriptions Prescriptions: No Action aspirin 81 mg Tablet,Delayed Release (Dr/Ec) 81 mg PO DAILY RF: 0 Lantus U-100 Insulin 100 unit/mL Solution 26 unit SUBCUT QPM RF: 0 atorvastatin 10 mg Tablet 10 mg PO QPM RF: 0 fluorometholone 0.25 % Drops,Suspension 1 drp OPHTHALMIC (EYE) QAM RF: 0 isosorbide mononitrate 30 mg Tablet Extended Release 24 Hr 30 mg PO QAM RF: 0 warfarin 2.5 mg Tablet 2.5 mg PO .SUN///SAT RF: 0 clopidogrel [Plavix] 75 mg Tablet 75 mg PO QAM RF: 0 warfarin 5 mg Tablet 5 mg PO .MON/THU/FRI RF: 0 losartan 25 mg Tablet 25 mg PO QAM RF: 0 furosemide [Lasix] 20 mg Tablet 20 mg PO QAM RF: 0 Humalog Mix 50-50 Insuln U-100 100 unit/mL (50-50) Suspension 18 unit SUBCUT QAM RF: 0 Humalog Mix 50-50 Insuln U-100 100 unit/mL (50-50) Suspension 14 unit SUBCUT QPM RF: 0 cholecalciferol (vitamin D3) [Vitamin D3] 5,000 unit Tablet 5,000 unit PO QAM RF: 0 Caltrate 600 + D 600 mg (1,500 mg)-800 unit Tablet,Chewable 1 tab PO QAM RF: 0 metoprolol tartrate [Lopressor] 100 mg Tablet 100 mg PO BID RF: 0 Referrals Referrals: Paresh Marino PA-C [Primary Care Provider] - The scribe's documentation has been prepared under my direction and personally r eviewed by me in its entirety. I confirm that the note above accurately reflects all work, treatment, procedures, and medical decision making performed by me.
[2019-02-01] MEDS ORDERED: CARBOHYDRATES FOR HYPOGLYCEMIA PO PRN (01:30)
[2019-02-01] MEDS ORDERED: GLUCOSE 40% GEL 15 GM TUBE PO PRN (01:30)
[2019-02-01] MEDS ORDERED: MAGNESIUM HYDROXIDE SUSP 30 ML UDC PO PRN (01:30)
[2019-02-01] MEDS ORDERED: ACETAMINOPHEN 1000 MG/100 ML IV IV PRN (01:30)
[2019-02-01] MEDS ORDERED: GLUCAGON FOR INJ 1 MG VIAL SQ PRN (01:30)
[2019-02-01] MEDS ORDERED: DEXTROSE 50% 50 ML SYRINGE IV PRN (01:30)
[2019-02-01] MEDS ORDERED: POLYETHYLENE (MIRALAX) 17 GM PACK PO PRN (01:30)
[2019-02-01] MEDS ORDERED: ONDANSETRON INJ 2 MG/ML 2 ML VIAL IV PRN (01:30)
[2019-02-01] MEDS ORDERED: GLUCOSE 10 TABS/TUBE PO PRN (01:30)
[2019-02-01] MEDS ORDERED: ALUMINUM/MAGNESIUM SUSP 30 ML UDC PO PRN (01:30)
[2019-02-01] MEDS ORDERED: NSS + 20MEQ KCL 20 MEQ/1,000 ML BAG IV SCH (01:30)
[2019-02-01] MEDS ORDERED: cefTRIAXone SODIUM 1,000 MG/50 ML BAG IV SCH (02:00)
[2019-02-01 02:07] LABS: Basophils # (auto) 0.02 K/uL (0-0.2); Basophils % (auto) 0.2 %; Eosinophils # (auto) 0.01 K/uL (0-0.5); Eosinophils % (auto) 0.1 %; Hemoglobin 10.6 g/dL (12.0-16.0); Immature Granulocytes # (auto) 0.06 K/uL (0.00-0.02); Immature Granulocytes % (auto) 0.6 %; Lymphocytes # (auto) 1.55 K/uL (1.2-3.4); Lymphocytes % (auto) 15.7 %; Mean Corpuscular Hgb Conc 31.2 g/dL (32-36); Mean Corpuscular Volume 83.3 fL (80-100); Mean Platelet Volume 11.2 fL (7.4-10.4); Monocytes # (auto) 0.51 K/uL (0.11-0.59); Monocytes % (auto) 5.2 %; Neutrophils # (auto) 7.72 K/uL (1.4-6.5); Neutrophils % (auto) 78.2 %; Platelet Count 176 K/uL (130-400); RDW Coefficient of Variation 14.2 % (11.5-14.5); Red Blood Count 4.08 M/uL (4.2-5.4); White Blood Count 9.87 K/uL (4.8-10.8)
[2019-02-01 02:23] LABS: INR 3.2 (0.9-1.1); Partial Thromboplastin Ratio 1.1; Partial Thromboplastin Time 29.8 Seconds (21.0-31.0)
[2019-02-01 02:25] LABS: BUN Creatinine Ratio 26.2 (10-20); Calcium 8.2 mg/dl (8.5-10.1); Est GFR (African American) 47.7; Est GFR (Non-African American) 41.1; Potassium 5.1 mmol/L (3.5-5.1)
[2019-02-01 02:27] LABS: Albumin Globulin Ratio 0.9 (0.9-2); Bilirubin,Total 0.3 mg/dl (0.2-1); Globulin 3.2 gm/dl (2.5-4.0); Total Protein 6.2 gm/dl (6.4-8.2)
[2019-02-01] MEDS ORDERED: SODIUM CHLORIDE 0.9% 1000ML 1,000 ML IV SCH (03:15)
[2019-02-01 07:19] LABS: Estimated Average Glucose 146 mg/dl
[2019-02-01] MEDS: INSULIN ASPART 100 UNITS/ML 3 ML PEN SC SCH ×4 (07:30→20:57)
--- NOTE | 2019-02-01 10:59 | Cardiology Consultation ---
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 At the time of her transcatheter aortic valve implantation in September 2015 she suffered an embolic stroke. A CT scan report dated 10/11/2015 at [facility] describes the patient having had evolving ischemic changes within the left posterior frontal lobe within the middle cerebral artery vascular territory without hemorrhagic trans-formation. The patient would have been considered high risk for this complication given her history of atrial arrhythmias, and calcific aortic stenosis. She had been supported with treatment including clopidogrel and Coumadin in the meantime. Recently she has had issues with progressive recurrent epistaxis prompting discontinuation of clopidogrel 1 month ago in Dec, 2018, and now presents with ongoing epistaxis while still on Coumadin. We will continue to hold Coumadin. Plan for close INR follow-up for perhaps goal closer to 2-2.5. (2) Chronic atrial fibrillation: As above, patient has chronic AV block, with ventricular paced rhythm. No tachycardia noted on desk monitor or EKG. Hold Coumadin, INR 3.1 today. Repeat INR tomorrow 02/02/2019. (3) Stroke: History of embolic stroke at the time of transcatheter aortic valve replacement. This is when she is on chronic anticoagulation with Coumadin. Remain off of clopidogrel. Resume Coumadin when INR less than 2. (4) Epistaxis, recurrent: As above. History of Present Illness Attending Physician: Charbel Gonzalez MD History of Present Illness Christal Mitchell is an 88 year old female seen in cardiology consultation per the request of Dr Caicedo for the evaluation of epistaxis, in this patient who is on chronic anticoagulation with Coumadin. The patient has had issues recently with recurrent significant epistaxis. Review of her chart reveals that she underwent endoscopic cauterization of a nasal bleed with endoscopic sinus surgery performed by Dr. Reina just under 2 weeks ago on 01/21/2019. She presented again via the emergency room last evening on 01/31/2019 with complaint of persistent left-sided nosebleed that began 1 hour prior to arrival to the emergency room. Her INR was 2.9. Coumadin was held, and a Rhino Rocket was placed. The patient was admitted to the telemetry unit for further assessment and treatment. Currently the Rhino Rocket remains in place. Her nosebleed has ceased. Her INR remains elevated at 3.2. The patient's primary apartment locator is Dr. Mosqueda of our practice. She had most recently been seen as an outpatient by Traci Block PA-C of our practice on 12/23/2018. At that time she was on both clopidogrel and Coumadin. She has a history of persistent chronic atrial flutter for which she is on Coumadin, and also has a history of dual-chamber pacemaker implantation in 2013 for heart rate support. 01/28/2019, there is a telephone call documented in her outpatient chart to our office recalling her recent problems with recurrent nosebleeds. Clopidogrel was therefore discontinued and she was to remain on Coumadin. She underwent transcatheter aortic valve valve replacement at [facility] in September 2015 for treatment of severe symptomatic aortic stenosis. This procedure was complicated by an embolic stroke. Her most recent echocardiogram performed in February 2018 revealed stable findings of appropriately functioning Core Valve prosthetic transcatheter aortic valve replacement. EKG performed this morning reveals atrial flutter with demand ventricular pacing at 60 bpm. The same as noted on telemetry. Most recent device check had been performed 12/23/2018 revealed underlying atrial fibrillation/atrial flutter with complete heart block, her device is a dual- chamber [employer] pacemaker implanted in December 2013 at [facility], it is currently functioning in a VVIR mode with lower rate of 60, and she is ventricular paced 100% the time. Generator longevity was stable at that time at 10.5 years. Cardiology problem list: 1. Status post CONY September 2015 for severe symptomatic aortic stenosis. 2. History of past paroxysmal atrial arrhythmias. 3. Status post dual chamber pacemaker insertion with AV junction ablation, 2013. 4. Embolic stroke post TAVR with improving functional capacity. 5. Chronic renal insufficiency, stage III CKD, calculated GFR 41 mL/min/m Allergies Allergy/AdvReac Type Severity Reaction Status Date / Time adhesive Allergy Mild IRRITATION Verified 01/31/19 23:30 FROM ECG PATCHES/ LEADS RANJEET Inhibitors Allergy Unknown COUGH Verified 01/31/19 23:30 codeine Allergy Unknown hallucinate Verified 01/31/19 23:30 s morphine Allergy Unknown FEELS HIGH Verified 01/31/19 23:30 prednisone Allergy Unknown unknown Verified 01/31/19 23:30 per daughter Home Medications Home Medications Medication Instructions Recorded Confirmed Type Caltrate 600 + D 1 tab PO QAM 06/30/18 01/31/19 History Humalog Mix 50-50 Insuln U-100 14 unit SUBCUT QPM 06/30/18 01/31/19 History Humalog Mix 50-50 Insuln U-100 18 unit SUBCUT QAM 06/30/18 01/31/19 History Lantus U-100 Insulin 26 unit SUBCUT QPM 06/30/18 01/31/19 History atorvastatin 10 mg PO QPM 06/30/18 01/31/19 History cholecalciferol (vitamin D3) 5,000 unit PO QAM 06/30/18 01/31/19 History [Vitamin D3] clopidogrel [Plavix] 75 mg PO QAM 06/30/18 01/31/19 History fluorometholone 1 drp OPHTHALMIC (EYE) QAM 06/30/18 01/31/19 History furosemide [Lasix] 20 mg PO QAM 06/30/18 01/31/19 History isosorbide mononitrate 30 mg PO QAM 06/30/18 01/31/19 History losartan 25 mg PO QAM 06/30/18 01/31/19 History warfarin 2.5 mg PO .SUN/TUES/THURS/SAT 06/30/18 01/31/19 History warfarin 5 mg PO .THU/THU/Thu06/30/18 01/31/19 History metoprolol tartrate [Lopressor] 100 mg PO BID 08/16/18 01/31/19 History aspirin 81 mg PO DAILY 01/31/19 01/31/19 History Patient History Medical History Epistaxis (Acute) ALL (acute lymphoblastic leukemia) Atrial fibrillation Bronchiolitis obliterans organizing pneumonia CKD (chronic kidney disease) stage 3, GFR 30-59 ml/min Diabetes on insulin GERD (gastroesophageal reflux disease) Hearing deficit History of pacemaker Hx of congestive heart failure Hypertension 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 Surgical History H/O colonoscopy H/O: hysterectomy History of cholecystectomy Hx of aortic valve replacement 2016 - [facility] Hx of cornea transplant right and left Hx of tooth extraction Pacemaker Social History Preferred Language: Latvian Communication Ability: Effective Implementation Project Coordinator Required: No Beliefs That Will Affect Care: None Current Living Situation: Family Other Information That Helps Us Care for You: No Feels Safe at Home: Yes Smoking Status: Never smoker Do You Dip or Chew Tobacco: No Second Hand Exposure: No Tobacco Cessation Education Requested by Patient: No Hx Alcohol Use: No Hx Substance Use: No Review of Systems Review of Systems: Conference of review of systems unobtainable as the patient is quite sleepy having been up most the night with all of her difficulty with her nosebleed. Physical Exam Physical Exam: General: no acute distress and stated age, resting comfortably ENT: Left-sided nasal tamponade in place, evidence of dried blood no acute bleeding now Neck: normal jugular venous pulse, no hepatojugular reflux Chest: normal shape and normal respiratory effort Lungs: clear to auscultation and percussion Cardiac Exam: - regular heart sounds, no murmurs, rubs, or gallops, no jugular venous distention Abdomen: abdomen soft, non-tender, no abnormal masses and no hepatosplenomegaly Extremities: No edema, venous varicosities noted on the lower extremities Results & Data Vital Signs (Past 12 Hours) Vital Signs Temp Pulse Pulse Pulse Resp BP BP 02/01/19 07:03 37.1 C 60 18 02/01/19 03:04 37.1 C 63 23 02/01/19 01:30 01/31/19 23:55 60 16 140/63 01/31/19 23:46 60 21 140/63 01/31/19 23:31 60 30 H 135/66 01/31/19 23:30 60 26 H 01/31/19 23:16 60 20 130/71 01/31/19 23:15 37.3 C 61 20 150/73 H 01/31/19 23:01 61 24 136/72 01/31/19 23:00 61 21 01/31/19 22:46 60 30 H 119/66 BP Pulse Ox Pulse Ox 02/01/19 07:03 169/75 H 96 02/01/19 03:04 171/77 H 92 02/01/19 01:30 93 01/31/19 23:55 95 01/31/19 23:46 95 01/31/19 23:31 96 06/10/19 23:30 96 01/31/19 23:16 97 01/31/19 23:15 96 01/31/19 23:01 97 01/31/19 23:00 97 01/31/19 22:46 96 Laboratory Results Cardiac Enzymes 02/01/19 02/01/19 Range/Units 01:49 01:49 AST 38 H (15-37) U/L Troponin I < 0.015 (0-0.045) ng/ml Coagulation 01/31/19 02/01/19 Range/Units 21:49 01:49 PT 27.3 H 30.0 H (9.0-12.0) Seconds APTT 29.2 29.8 (21.0-31.0) Seconds CBC 01/31/19 02/01/19 Range/Units 21:49 01:49 WBC 6.94 9.87 (4.8-10.8) K/uL RBC 4.36 4.08 L (4.2-5.4) M/uL Hgb 11.3 L 10.6 L (12.0-16.0) g/dL Hct 36.4 L 34.0 L (37-47) % Plt Count 194 176 (130-400) K/uL Neut # (Auto) 7.72 H (1.4-6.5) K/uL Lymph # (Auto) 1.55 (1.2-3.4) K/uL Major # (Auto) 0.51 (0.11-0.59) K/uL Eos # (Auto) 0.01 (0-0.5) K/uL Baso # (Auto) 0.02 (0-0.2) K/uL Comprehensive Metabolic Panel 02/01/19 Range/Units 01:49 Sodium 143 (136-145) mmol/L Potassium 5.1 (3.5-5.1) mmol/L Chloride 107 (98-107) mmol/L Carbon Dioxide 34 H (21-32) mmol/L BUN 31 H (7-18) mg/dl Creatinine 1.18 (0.6-1.2) mg/dl Glucose 172 H (70-99) mg/dl Calcium 8.2 L (8.5-10.1) mg/dl AST 38 H (15-37) U/L ALT 36 (12-78) U/L Alkaline Phosphatase 86 (45-117) U/L Total Protein 6.2 L (6.4-8.2) gm/dl Albumin 3.0 L (3.4-5.0) gm/dl Intake and Output 01/31/19 02/01/19 02/01/19 22:59 06:59 14:59 Intake Total 500 / 800 300 / 800 321 / 321 Balance 500 / 800 300 / 800 321 / 321 Intake: IV 500 / 550 50 / 550 321 / 321 NORMAL SALINE w/20 MEQ KCL 20 321 / 321 meq In 1,000 ml @ 60 mls/hr IV .[id number] [facility] Rx#:[id number] Nss 1000ML 500 ml @ 999 mls/hr 500 / 500 IV .Q31M ONE Rx#:[id number] ROCEPHIN 1,000 mg In 50 ml @ 50 / 50 100 mls/hr IV Q24H [facility] Rx#: [id number] Oral 250 / 250 Other: # Unmeasured Voids 2 Weight 67.6 kg 67.7 kg Medications Administered Current Inpatient Medications Acetaminophen (Tylenol) 650 mg PO Q4H PRN PRN Reason: Pain or Fever Stop: 03/03/19 01:29 Acetaminophen (Ofirmev) 1,000 mg IV Q8H PRN PRN Reason: Pain or Fever Stop: 03/03/19 01:29 Al Hydrox/Mg Hydrox/Simethicone (Maalox) 15 ml PO Q4H PRN PRN Reason: Dyspepsia Stop: 03/03/19 01:29 Dextrose (Dextrose 50%) 25 - 50 ml IV UD PRN; Protocol PRN Reason: Hypoglycemia Protocol Stop: 03/03/19 01:29 Glucagon (Glucagen) 1 mg SQ UD PRN; Protocol PRN Reason: Hypoglycemia Protocol Stop: 03/03/19 01:29 Glucose (Glucose 40%) 15 - 30 gm PO UD PRN; Protocol PRN Reason: Hypoglycemia Protocol Stop: 03/03/19 01:29 Glucose (Dex4 Glucose) 4 - 8 tabs PO UD PRN; Protocol PRN Reason: Hypoglycemia Protocol Stop: 03/03/19 01:29 Ceftriaxone Sodium (Rocephin) 1,000 mg in 50 mls @ 100 mls/hr IV Q24H [facility] Stop: 03/15/19 01:59 Last Infusion: 02/01/19 02:25 Dose: Infused Documented by: Sodium Chloride (Nss 1000ml) 1,000 mls @ 60 mls/hr IV .[id number] [facility] Stop: 03/03/19 03:14 Last Admin: 02/01/19 03:40 Dose: 60 mls/hr Documented by: Insulin Aspart (Novolog Flexpen) 0 units SC ACHS SEEMA Stop: 03/03/19 07:29 Last Admin: 02/01/19 07:30 Dose: Not Given Documented by: Magnesium Hydroxide (Milk Of Magnesia) 30 ml PO Q12H PRN PRN Reason: Constipation Stop: 03/03/19 01:29 Miscellaneous (Carbohydrates For Hypoglycemia) 15 - 30 gm PO UD PRN PRN Reason: Hypoglycemia Treatment Stop: 03/03/19 01:29 Ondansetron HCl (Zofran) 4 mg IV Q6H PRN PRN Reason: Nausea Stop: 03/03/19 01:29 Polyethylene Glycol (Miralax Powder Packet) 17 gm PO DAILY PRN PRN Reason: Constipation Stop: 03/03/19 01:29
--- NOTE | 2019-02-01 15:35 | Hospitalist Progress Note ---
Date of Service February 01, 2019 Assessment & Plan (1) Severe epistaxis: Patient presented to the emergency department with her fourth episode of severe bleeding in the past month. She had surgery by Dr. Reina on 01/21/2019. - She was assessed by Dr. Reina in the ED on admission. - Plans to have patient go to surgery on 02/04. (2) Chronic atrial fibrillation: Patient has chronich AV block with pacer. - Holding warfarin this time; INR 3.1 on 02/01 - Hold vitamin K to reverse the INR unless she bleeds further. - Plan for INR 2 - 2.5 after surgery - Appreciate cardiology help - Continue metoprolol tartrate 100 mg p.o. twice daily with hold parameters, losartan 25 mg p.o. every morning and isosorbide mononitrate 30 mg p.o. every morning. (3) H/O aortic valve replacement: Had TAVR bioprosthetic valve put in at [facility] in 09/2015 with an embolic stroke afterward. - Held Plavix due to bleeding in 12/2018 - Continue statin (4) CAD (coronary artery disease), [place] coronary artery: See above (5) Hypertension: See above (6) Diabetes: A1c this admission was 6.7%. - Hold Humalog 50/50 mix until patient is eating regularly. - Place on Accu-Cheks before meals and at bedtime with NovoLog coverage per scale. (7) Hyperlipidemia: - Continue atorvastatin 10 mg p.o. every evening (8) DVT prophylaxis: On warfarin for anticoagulation for her aortic valve Subjective Very tired today after hydroxyzine at 4am. Will wake up, use the restroom, answer questions, etc., but otherwise falls asleep. Review of Systems Review of Systems: All systems reviewed & are unremarkable except as noted in HPI & below Physical Exam Constitutional: WD/WN, vitals as above + lethargic Eyes: EOM intact bilaterally; no conjunctival abnormality ENMT: external ear and nose normal, oropharynx normal Neck: trachea midline, no thyromegaly normal visual inspection Respiratory: normal respiratory effort, lungs clear to auscultation no respiratory distress Cardiovascular: RRR, no murmur, no edema Gastrointestinal (Abdomen): Inspection/Auscultation: abdomen normal to inspection; abdomen not distended Musculoskeletal: no cyanosis or clubbing, extremities motor strength 5/5 Skin: no rashes, warm and dry Neurologic: moves all extremities and awake Psychiatric: Orientation: alert, oriented to person and cooperative Results & Data Vital Signs (Past 12 Hours) Vital Signs Temp Pulse Resp BP BP Pulse Ox 02/01/19 11:38 37.6 C H 65 18 178/66 H 97 02/01/19 07:03 37.1 C 60 18 169/75 H 96
[2019-02-01] MEDS: METOPROLOL TARTRATE 50 MG TAB PO SCH (20:57)
[2019-02-01] MEDS: ATORVASTATIN 10 MG TAB PO SCH (20:57)
[2019-02-02 07:06] LABS: Basophils # (auto) 0.03 K/uL (0-0.2); Basophils % (auto) 0.3 %; Eosinophils # (auto) 0.05 K/uL (0-0.5); Eosinophils % (auto) 0.5 %; Hematocrit (blood only) 31.4 % (37-47); Immature Granulocytes # (auto) 0.05 K/uL (0.00-0.02); Immature Granulocytes % (auto) 0.5 %; Lymphocytes % (auto) 18.9 %; Mean Corpuscular Hgb Conc 31.8 g/dL (32-36); Mean Corpuscular Volume 82.4 fL (80-100); Mean Platelet Volume 11.3 fL (7.4-10.4); Monocytes # (auto) 1.52 K/uL (0.11-0.59); Monocytes % (auto) 14.4 %; Neutrophils # (auto) 6.91 K/uL (1.4-6.5); Neutrophils % (auto) 65.4 %; Platelet Count 165 K/uL (130-400); RDW Coefficient of Variation 14.6 % (11.5-14.5); RDW Standard Deviation 44.2 fL (36.4-46.3); Red Blood Count 3.81 M/uL (4.2-5.4); White Blood Count 10.56 K/uL (4.8-10.8)
[2019-02-02 07:30] LABS: INR 3.9 (0.9-1.1)
[2019-02-02 07:46] LABS: BUN Creatinine Ratio 26.4 (10-20); Calcium 8.7 mg/dl (8.5-10.1); Creatinine Clr Calc Pharmacy 31.1 ml/min; Est GFR (African American) 53.7; Est GFR (Non-African American) 46.3; Magnesium 2.3 mg/dl (1.8-2.4); Potassium 4.7 mmol/L (3.5-5.1)
[2019-02-02 07:49] LABS: Albumin Globulin Ratio 0.9 (0.9-2); Bilirubin,Total 0.5 mg/dl (0.2-1); Globulin 3.3 gm/dl (2.5-4.0); Total Protein 6.3 gm/dl (6.4-8.2)
[2019-02-02] MEDS: ISOSORBIDE MONO EXTENDED REL 30 MG TABCR PO SCH (08:22)
[2019-02-02] MEDS: METOPROLOL TARTRATE 50 MG TAB PO SCH ×2 (08:22→20:15)
[2019-02-02] MEDS: INSULIN ASPART 100 UNITS/ML 3 ML PEN SC SCH ×4 (08:48→20:19)
[2019-02-02] MEDS ORDERED: PHYTONADIONE 5 MG TAB PO STA (10:28)
[2019-02-02] MEDS ORDERED: PHYTONADIONE PED 1.25 MG, ORA-SWEET SYRUP 2.25 ML, ORA-PLUS SUSP VEHICLE 2.25 ML, BARCO... PO ONE (11:00)
--- NOTE | 2019-02-02 12:53 | Cardiology Progress Note ---
Date of Service February 02, 2019 Assessment & Plan (1) Severe epistaxis: Coumadin on hold. She is not eating much, and her INR is increased to 3.9. I agree with the IV vitamin K order has already placed by the primary team. Repeat INR tomorrow. (2) Chronic atrial fibrillation: Chronic atrial fibrillation, history of pacemaker for heart rate support. She is currently rate controlled, ventricular paced (3) Status post transcatheter aortic valve replacement (TAVR) using bioprosthesis: History of transcatheter aortic valve replacement. She suffered a presumed cardio embolic stroke at the time of the procedure. She had initially been treated with clopidogrel plus Coumadin. Clopidogrel discontinued in December 2018 due to epistaxis, but now has had recurrent epistaxis on Coumadin. (4) CVA (cerebral vascular accident): To clarify, she is on Coumadin because of her underlying atrial fibrillation, and past embolic stroke. Coumadin is not necessary from a standpoint of her transcatheter aortic valve replacement as this is a variant of a bioprosthetic rather than a mechanical prosthesis. In the absence of her atrial fibrillation and stroke history, antiplatelet therapy with aspirin 81 mg daily would be fine for just having had her particular aortic valve procedure. At present, will remain off of antiplatelet therapy due to epistaxis. Reverse her elevated INR with vitamin K. Will eventually resume Coumadin with goal INR of 22.5 with close anticoagulation clinic follow-up. She is frail and elderly. Another alternative would be to permit her increased risk of recurrent embolic stroke, and transition her to aspirin 81 mg monotherapy. This will be considered if the nosebleed situation does not become controlled. Subjective Chief complaint: Follow-up recurrent nosebleeds, need for chronic anticoagulation Subjective: Patient resting comfortably. The left-sided nasal Nod is still in place. Physical Exam Physical Exam: General: no acute distress and stated age Eyes: conjunctiva are pink and non-injected, sclera clear Neck: normal jugular venous pulse, no hepatojugular reflux Chest: normal shape and normal respiratory effort Lungs: clear to auscultation and percussion Cardiac Exam: - regular heart sounds, no murmurs, rubs, or gallops, no jugular venous distention Abdomen: abdomen soft, non-tender, no abnormal masses and no hepatosplenomegaly Extremities: no edema and no cyanosis Neuro:awake, coversant, follows commands, no focal motor deficits Results & Data Vital Signs (Past 12 Hours) Vital Signs Temp Pulse Resp BP Pulse Ox 02/02/19 11:45 36.7 C 61 18 109/64 93 02/02/19 07:46 36.8 C 64 18 150/81 H 96 02/02/19 04:00 36.5 C 68 18 153/78 H 96 Laboratory Results 02/02/2019 Hemoglobin 10 g/dL Platelet count 165 INR 3.9 increased from 3.2 yesterday.
--- NOTE | 2019-02-02 15:06 | Hospitalist Progress Note ---
Date of Service February 02, 2019 Assessment & Plan (1) Severe epistaxis: Patient presented to the emergency department with her fourth episode of severe bleeding in the past month. She had surgery by Dr. Reina on 01/21/2019. - She was assessed by Dr. Reina in the ED on admission. - Plans to have Rhinorocket removed on 02/04. (2) Chronic atrial fibrillation: Patient has chronic AV block with pacer. - Holding warfarin this time; INR 3.9 on 02/02 - Gave vitamin K 1.25mg PO on 02/02 for increasing INR - Plan for INR 2 - 2.5 after surgery - Appreciate cardiology help - Continue metoprolol 100mg PO BID (3) H/O aortic valve replacement: Had TAVR bioprosthetic valve put in at [facility] in 09/2015 with an embolic stroke afterward. - Held Plavix due to bleeding in 12/2018 - Continue statin (4) CAD (coronary artery disease), [place] coronary artery: See above (5) Hypertension: BP has been stable while inpatient. - Continue beta-inocencia and Imdur - Losartan was held on admission for unknown reasons. At this time BP is at goal, so will continue to hold for now. (6) Diabetes: A1c this admission was 6.7%. - Hold Humalog 50/50 mix until patient is eating regularly. - Place on Accu-Cheks before meals and at bedtime with NovoLog coverage per scale. (7) Anemia: Hemorrhagic disorder due to extrinsic circulating anticoagulant (Coumadin) with resultant acute blood loss anemia. - Trend hgb - Get anemia labs in the morning (8) Hyperlipidemia: - Continue atorvastatin 10 mg p.o. every evening (9) DVT prophylaxis: On warfarin for anticoagulation for her aortic valve Subjective More alert today. No major concerns. Review of Systems Review of Systems: All systems reviewed & are unremarkable except as noted in HPI & below Physical Exam Constitutional: WD/WN, vitals as above not lethargic Eyes: EOM intact bilaterally; no conjunctival abnormality ENMT: Nose: + epistaxis (Rhinorocket in place in left nare) Neck: trachea midline, no thyromegaly normal visual inspection Respiratory: normal respiratory effort, lungs clear to auscultation no respiratory distress Cardiovascular: RRR, no murmur, no edema Gastrointestinal (Abdomen): Inspection/Auscultation: abdomen normal to inspection; abdomen not distended Musculoskeletal: no cyanosis or clubbing, extremities motor strength 5/5 Skin: no rashes, warm and dry Neurologic: moves all extremities and awake Psychiatric: Orientation: alert, oriented to person and cooperative Results & Data Vital Signs (Past 12 Hours) Vital Signs Temp Pulse Resp BP Pulse Ox 02/02/19 11:45 36.7 C 61 18 109/64 93 02/02/19 07:46 36.8 C 64 18 150/81 H 96 02/02/19 04:00 36.5 C 68 18 153/78 H 96
[2019-02-02] MEDS: ATORVASTATIN 10 MG TAB PO SCH (20:15)
[2019-02-03 07:52] LABS: Basophils # (auto) 0.02 K/uL (0-0.2); Basophils % (auto) 0.2 %; Eosinophils # (auto) 0.09 K/uL (0-0.5); Eosinophils % (auto) 0.9 %; Hematocrit (blood only) 29.9 % (37-47); Hemoglobin 9.2 g/dL (12.0-16.0); Immature Granulocytes # (auto) 0.04 K/uL (0.00-0.02); Immature Granulocytes % (auto) 0.4 %; Lymphocytes # (auto) 1.53 K/uL (1.2-3.4); Lymphocytes % (auto) 15.3 %; Mean Corpuscular Hgb Conc 30.8 g/dL (32-36); Mean Corpuscular Volume 82.6 fL (80-100); Monocytes # (auto) 1.36 K/uL (0.11-0.59); Monocytes % (auto) 13.6 %; Neutrophils # (auto) 6.96 K/uL (1.4-6.5); Neutrophils % (auto) 69.6 %; Platelet Count 142 K/uL (130-400); RDW Coefficient of Variation 14.5 % (11.5-14.5); RDW Standard Deviation 43.9 fL (36.4-46.3); Red Blood Count 3.62 M/uL (4.2-5.4)
[2019-02-03 08:05] LABS: INR 1.5 (0.9-1.1)
[2019-02-03 08:22] LABS: Albumin Level 2.7 gm/dl (3.4-5.0); BUN Creatinine Ratio 25.1 (10-20); Calcium 8.5 mg/dl (8.5-10.1); Creatinine Clr Calc Pharmacy 34.7 ml/min; Est GFR (African American) 61.2; Est GFR (Non-African American) 52.8; Magnesium 2.2 mg/dl (1.8-2.4); Potassium 4.1 mmol/L (3.5-5.1)
[2019-02-03 08:25] LABS: Albumin Globulin Ratio 0.8 (0.9-2); Bilirubin,Total 0.6 mg/dl (0.2-1); Globulin 3.3 gm/dl (2.5-4.0)
[2019-02-03] MEDS: INSULIN ASPART 100 UNITS/ML 3 ML PEN SC SCH ×4 (09:41→20:25)
[2019-02-03] MEDS: ISOSORBIDE MONO EXTENDED REL 30 MG TABCR PO SCH (09:43)
[2019-02-03] MEDS: METOPROLOL TARTRATE 50 MG TAB PO SCH ×2 (09:43→20:22)
--- NOTE | 2019-02-03 15:09 | Hospitalist Progress Note ---
Date of Service February 03, 2019 Assessment & Plan (1) Severe epistaxis: Patient presented to the emergency department with her fourth episode of severe bleeding in the past month. She had surgery by Dr. Reina on 01/21/2019. - She was assessed by Dr. Reina in the ED on admission. - Discussed with Dr. Reina today - Plans to have Rhinorocket removed tomorrow ~8am. If she re-bleeds, she will need to go to the OR. If she doesn't, she can be discharged when able to go to rehab. (2) Chronic atrial fibrillation: Patient has chronic AV block with pacer. - Holding warfarin this time - Plan for INR 2 - 2.5 after surgery - Appreciate cardiology help - Continue metoprolol 100mg PO BID - Gave vitamin K 1.25mg PO on 02/02 for increasing INR - On 02/03, her INR was down to 1.5. (3) H/O aortic valve replacement: Had TAVR bioprosthetic valve put in at [facility] in 09/2015 with an embolic stroke afterward. - Held Plavix due to bleeding in 12/2018 - Continue statin (4) CAD (coronary artery disease), [place] coronary artery: See above (5) Hypertension: BP has been stable while inpatient. - Continue beta-inocencia and Imdur - Losartan was held on admission for unknown reasons. At this time BP is at goal, so will continue to hold for now. (6) Diabetes: A1c this admission was 6.7%. - Hold Humalog 50/50 mix until patient is eating regularly. - Place on Accu-Cheks before meals and at bedtime with NovoLog coverage per scale. (7) Anemia: Hemorrhagic disorder due to extrinsic circulating anticoagulant (Coumadin) with resultant acute blood loss anemia. - Trend hgb - Get anemia labs in the morning (8) Hyperlipidemia: - Continue atorvastatin 10 mg p.o. every evening (9) DVT prophylaxis: At baseline, on warfarin for anticoagulation for her aortic valve - Holding chemoprophylaxis until after seen by ENT tomorrow Subjective No major complaints. She is doing well this morning. Sleeps quite frequently per the RN; however, easily awakes for me. Review of Systems Review of Systems: All systems reviewed & are unremarkable except as noted in HPI & below Physical Exam Constitutional: WD/WN, vitals as above not lethargic Eyes: EOM intact bilaterally; no conjunctival abnormality ENMT: external ear and nose normal, oropharynx normal Nose: + epistaxis (Rhinorocket in place in left nare) Neck: trachea midline, no thyromegaly normal visual inspection Respiratory: normal respiratory effort, lungs clear to auscultation no respiratory distress Cardiovascular: RRR, no murmur, no edema Gastrointestinal (Abdomen): Inspection/Auscultation: abdomen normal to inspection; abdomen not distended Musculoskeletal: no cyanosis or clubbing, extremities motor strength 5/5 Skin: no rashes, warm and dry Neurologic: moves all extremities and awake Psychiatric: Orientation: alert, oriented to person and cooperative Results & Data Vital Signs (Past 12 Hours) Vital Signs Temp Pulse Resp BP BP Pulse Ox 02/03/19 10:53 36.4 C L 60 18 113/63 93 02/03/19 07:28 36.3 C L 59 L 18 125/62 94 02/03/19 04:29 37.1 C 60 18 131/73 95 PG Care Time/CCT Total # of Minutes Spent Total Time Spent with Patient: Total time spent is greater than 50% in coordinat ion of care (as documented) at patient's floor/unit and/or counseling patient:
--- NOTE | 2019-02-03 15:48 | ENT Consultation ---
Date of Consultation February 03, 2019 Assessment & Plan (1) Severe epistaxis: will remove pack tomorrow History of Present Illness Reason for Consultation: epistaxis Attending Physician: Charbel Gonzalez MD History of Present Illness Pt. known to me, 4 episodes of bleeding to ER, endo cautery by me 01/21 then placed back on plavix plus coumadin and rebled with elevated INR Allergies Allergy/AdvReac Type Severity Reaction Status Date / Time adhesive Allergy Mild IRRITATION Verified 01/31/19 23:30 FROM ECG PATCHES/ LEADS RANJEET Inhibitors Allergy Unknown COUGH Verified 01/31/19 23:30 codeine Allergy Unknown hallucinate Verified 01/31/19 23:30 s morphine Allergy Unknown FEELS HIGH Verified 01/31/19 23:30 prednisone Allergy Unknown unknown Verified 01/31/19 23:30 per daughter Home Medications Home Medications Medication Instructions Recorded Confirmed Type Caltrate 600 + D 1 tab PO QAM 06/30/18 01/31/19 History Humalog Mix 50-50 Insuln U-100 14 unit SUBCUT QPM 06/30/18 01/31/19 History Humalog Mix 50-50 Insuln U-100 18 unit SUBCUT QAM 06/30/18 01/31/19 History Lantus U-100 Insulin 26 unit SUBCUT QPM 06/30/18 01/31/19 History atorvastatin 10 mg PO QPM 06/30/18 01/31/19 History cholecalciferol (vitamin D3) 5,000 unit PO QAM 06/30/18 01/31/19 History [Vitamin D3] clopidogrel [Plavix] 75 mg PO QAM 06/30/18 01/31/19 History fluorometholone 1 drp OPHTHALMIC (EYE) QAM 06/30/18 01/31/19 History furosemide [Lasix] 20 mg PO QAM 06/30/18 01/31/19 History isosorbide mononitrate 30 mg PO QAM 06/30/18 01/31/19 History losartan 25 mg PO QAM 06/30/18 01/31/19 History warfarin 2.5 mg PO .SUN/TUES/THURS/SAT 06/30/18 01/31/19 History warfarin 5 mg PO .MON/THU/Thu06/30/18 01/31/19 History metoprolol tartrate [Lopressor] 100 mg PO BID 08/16/18 01/31/19 History aspirin 81 mg PO DAILY 01/31/19 01/31/19 History Patient History Medical History Epistaxis (Acute) ALL (acute lymphoblastic leukemia) Atrial fibrillation Bronchiolitis obliterans organizing pneumonia CKD (chronic kidney disease) stage 3, GFR 30-59 ml/min Diabetes on insulin GERD (gastroesophageal reflux disease) Hearing deficit History of pacemaker Hx of congestive heart failure Hypertension 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 Surgical History H/O colonoscopy H/O: hysterectomy History of cholecystectomy Hx of aortic valve replacement 2016 - [facility] Hx of cornea transplant right and left Hx of tooth extraction Pacemaker Social History Preferred Language: Croatian Communication Ability: Effective 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 Beliefs That Will Affect Care: None marital status: / Current Living Situation: Family Other Information That Helps Us Care for You: No Feels Safe at Home: Yes Smoking Status: Never smoker Do You Dip or Chew Tobacco: No Second Hand Exposure: No Tobacco Cessation Education Requested by Patient: No Hx Alcohol Use: No Hx Substance Use: No Physical Exam Constitutional: + ill appearing Eyes: PERRL, conjunctivae normal, anicteric sclerae ENMT: Nose: + nasal mucous membrane abnormality (pack in left nares) Neck: trachea midline, no thyromegaly Respiratory: normal respiratory effort, lungs clear to auscultation Results & Data Vital Signs (Past 12 Hours) Vital Signs Temp Pulse Pulse Resp BP BP Pulse Ox 02/03/19 15:05 78 02/03/19 10:53 36.4 C L 60 18 113/63 93 02/03/19 07:28 36.3 C L 59 L 18 125/62 94 02/03/19 04:29 37.1 C 60 18 131/73 95
[2019-02-03] MEDS: ATORVASTATIN 10 MG TAB PO SCH (20:22)
[2019-02-04 07:22] LABS: Hematocrit (blood only) 28.8 % (37-47); Hemoglobin 9.1 g/dL (12.0-16.0); Mean Corpuscular Hgb Conc 31.6 g/dL (32-36); Mean Corpuscular Volume 83.2 fL (80-100); Mean Platelet Volume 11.2 fL (7.4-10.4); Platelet Count 153 K/uL (130-400); RDW Coefficient of Variation 14.6 % (11.5-14.5); RDW Standard Deviation 43.7 fL (36.4-46.3); Red Blood Count 3.46 M/uL (4.2-5.4); White Blood Count 7.73 K/uL (4.8-10.8)
[2019-02-04 07:36] LABS: INR 1.2 (0.9-1.1); Prothrombin Time 11.9 Seconds (9.0-12.0)
[2019-02-04] MEDS: INSULIN ASPART 100 UNITS/ML 3 ML PEN SC SCH ×4 (08:32→20:18)
[2019-02-04] MEDS: ISOSORBIDE MONO EXTENDED REL 30 MG TABCR PO SCH (08:47)
[2019-02-04] MEDS: METOPROLOL TARTRATE 50 MG TAB PO SCH ×2 (08:47→20:18)
--- NOTE | 2019-02-04 13:38 | Hospitalist Progress Note ---
Date of Service February 04, 2019 Assessment & Plan (1) Severe epistaxis: Patient presented to the emergency department with her fourth episode of severe bleeding in the past month. She had surgery by Dr. Reina on 01/21/2019. - She was assessed by Dr. Reina in the ED on admission. - Discussed with Dr. Reina on 02/03 - Rhinorocket removed today. If she re-bleeds, she will need to go to the OR. If she doesn't, she can be discharged when able to go to rehab. -> Planning rehab when able. (2) Chronic atrial fibrillation: Patient has chronic AV block with pacer. - Holding warfarin this time - Plan for INR 2 - 2.5 after surgery - Appreciate cardiology help - Continue metoprolol 100mg PO BID - Gave vitamin K 1.25mg PO on 02/02 for increasing INR - On 02/03, her INR was down to 1.5. - Restarted warfarin on 02/04 at lower dose than prior - 2.5mg PO daily (3) H/O aortic valve replacement: Had TAVR bioprosthetic valve put in at [facility] in 09/2015 with an embolic stroke afterward. - Held Plavix due to bleeding in 12/2018 - Continue statin (4) CAD (coronary artery disease), [place] coronary artery: See above (5) Hypertension: BP has been stable while inpatient. - Continue beta-inocencia and Imdur - Losartan was held on admission for unknown reasons. At this time BP is at goal, so will continue to hold for now. (6) Diabetes: A1c this admission was 6.7%. - Hold Humalog 50/50 mix until patient is eating regularly. - Place on Accu-Cheks before meals and at bedtime with NovoLog coverage per scale. (7) Anemia: Hemorrhagic disorder due to extrinsic circulating anticoagulant (Coumadin) with resultant acute blood loss anemia. - Baseline hgb is 13-14 (as recently as 12/2018). - Trend hgb - Stable at 9.0 on 02/04. - Will give IV iron x 1 dose to help replete iron stores lost from bleeding. (8) Hyperlipidemia: - Continue atorvastatin 10 mg p.o. every evening (9) DVT prophylaxis: At baseline, on warfarin for anticoagulation for her aortic valve - Holding heparin chemoprophylaxis - Restarted warfarin on 02/04 Subjective Feeling well after the Rhinorocket was removed. Will work with PT and start placement. Review of Systems Review of Systems: All systems reviewed & are unremarkable except as noted in HPI & below Physical Exam Constitutional: WD/WN, vitals as above not lethargic Eyes: EOM intact bilaterally; no conjunctival abnormality ENMT: external ear and nose normal, oropharynx normal Nose: + epistaxis (Rhinorocket out of left nare, but still with blood at site.) Neck: trachea midline, no thyromegaly normal visual inspection Respiratory: normal respiratory effort, lungs clear to auscultation no respiratory distress Cardiovascular: RRR, no murmur, no edema Gastrointestinal (Abdomen): Inspection/Auscultation: abdomen normal to inspection; abdomen not distended Musculoskeletal: no cyanosis or clubbing, extremities motor strength 5/5 Skin: no rashes, warm and dry Neurologic: moves all extremities and awake Psychiatric: Orientation: alert, oriented to person and cooperative Results & Data Vital Signs (Past 12 Hours) Vital Signs Temp Pulse Resp BP Pulse Ox 02/04/19 11:32 36.9 C 62 16 113/55 L 94 02/04/19 07:31 37 C 60 16 155/70 H 96 02/04/19 04:34 36.7 C 60 17 127/66 96 PG Care Time/CCT Total # of Minutes Spent Total Time Spent with Patient: Total time spent is greater than 50% in coordination of care (as documented) at patient's floor/unit and/or counseling patient:
[2019-02-04] MEDS ORDERED: IRON SUCROSE 200 MG in 0.9 % SODIUM CHLORIDE 100 ML IV SCH (15:00)
[2019-02-04] MEDS: WARFARIN SOD 2.5 MG TAB PO SCH (17:29)
[2019-02-04] MEDS: ATORVASTATIN 10 MG TAB PO SCH (20:18)
[2019-02-05 06:49] LABS: Hematocrit (blood only) 28.8 % (37-47); Mean Corpuscular Hgb Conc 31.3 g/dL (32-36); Mean Corpuscular Volume 83.5 fL (80-100); Mean Platelet Volume 11.4 fL (7.4-10.4); Platelet Count 169 K/uL (130-400); RDW Coefficient of Variation 14.7 % (11.5-14.5); RDW Standard Deviation 44.4 fL (36.4-46.3); Red Blood Count 3.45 M/uL (4.2-5.4); White Blood Count 7.12 K/uL (4.8-10.8)
[2019-02-05 07:00] LABS: INR 1.2 (0.9-1.1); Prothrombin Time 11.8 Seconds (9.0-12.0)
[2019-02-05] MEDS: INSULIN ASPART 100 UNITS/ML 3 ML PEN SC SCH ×4 (08:34→22:02)
[2019-02-05] MEDS: METOPROLOL TARTRATE 50 MG TAB PO SCH ×2 (08:35→21:50)
[2019-02-05] MEDS: ISOSORBIDE MONO EXTENDED REL 30 MG TABCR PO SCH (08:35)
--- NOTE | 2019-02-05 13:05 | Hospitalist Progress Note ---
Date of Service February 05, 2019 Assessment & Plan (1) Severe epistaxis: Patient presented to the emergency department with her fourth episode of severe bleeding in the past month. She had surgery by Dr. Reina on 01/21/2019. - She was assessed by Dr. Reina in the ED on admission. - Discussed with Dr. Reina on 02/03 - Rhinorocket removed on 02/04. If she re- bleeds, she will need to go to the OR. - Dr. Reina approved use of warfarin with goal of INR = 2 (no higher than 2.5.) If she re-bleeds with INR close to 2, she will need to stop anticoagulation. (2) Chronic atrial fibrillation: Patient has chronic AV block with pacer. - Continue metoprolol 100mg PO BID - Plan for INR close to 2 - Restarted warfarin on 02/04 at lower dose than prior - 2.5mg PO daily - On 02/05, INR was 1.2. (3) H/O aortic valve replacement: Had TAVR bioprosthetic valve put in at [facility] in 09/2015 with an embolic stroke afterward. - Held Plavix due to bleeding in 12/2018 - Continue statin (4) CAD (coronary artery disease), [place] coronary artery: See above (5) Hypertension: BP has been stable while inpatient. - Continue beta-inocencia and Imdur - Losartan was held on admission for unknown reasons. At this time BP is at goal, so will continue to hold for now. (6) Diabetes: A1c this admission was 6.7%. - Hold Humalog 50/50 mix until patient is eating regularly. - Place on Accu-Cheks before meals and at bedtime with NovoLog coverage per scale. (7) Anemia: Hemorrhagic disorder due to extrinsic circulating anticoagulant (Coumadin) with resultant acute blood loss anemia. - Baseline hgb is 13-14 (as recently as 12/2018). - Trend hgb - Stable at 9.0 on 02/05. - Gave IV iron x 1 dose to help replete iron stores lost from bleeding. (8) Hyperlipidemia: - Continue atorvastatin 10 mg p.o. every evening (9) DVT prophylaxis: At baseline, on warfarin for anticoagulation for her aortic valve - Holding heparin prophylaxis - Restarted warfarin on 02/04 Subjective No major complaints. Review of Systems Review of Systems: All systems reviewed & are unremarkable except as noted in HPI & below Physical Exam Constitutional: WD/WN, vitals as above not lethargic Eyes: EOM intact bilaterally; no conjunctival abnormality ENMT: external ear and nose normal, oropharynx normal Nose: + epistaxis (Rhinorocket out of left nare, but still with blood at site.) Neck: trachea midline, no thyromegaly normal visual inspection Respiratory: normal respiratory effort, lungs clear to auscultation no respiratory distress Cardiovascular: RRR, no murmur, no edema Gastrointestinal (Abdomen): Inspection/Auscultation: abdomen normal to inspection; abdomen not distended Musculoskeletal: no cyanosis or clubbing, extremities motor strength 5/5 Skin: no rashes, warm and dry Neurologic: moves all extremities and awake Psychiatric: Orientation: alert, oriented to person and cooperative Results & Data Vital Signs (Past 12 Hours) Vital Signs Temp Pulse Resp BP Pulse Ox 02/05/19 11:09 37 C 60 18 114/66 93 02/05/19 07:12 36 C L 65 20 156/78 H 95 02/05/19 03:12 37.1 C 59 L 16 116/70 92 PG Care Time/CCT Total # of Minutes Spent Total Time Spent with Patient: Total time spent is greater than 50% in coordination of care (as documented) at patient's floor/unit and/or counseling patient:
[2019-02-05] MEDS: WARFARIN SOD 2.5 MG TAB PO SCH (15:37)
[2019-02-05] MEDS: ATORVASTATIN 10 MG TAB PO SCH (21:50)
[2019-02-06] MEDS: ISOSORBIDE MONO EXTENDED REL 30 MG TABCR PO SCH (09:31)
[2019-02-06] MEDS: METOPROLOL TARTRATE 50 MG TAB PO SCH ×2 (09:32→21:05)
[2019-02-06] MEDS: INSULIN ASPART 100 UNITS/ML 3 ML PEN SC SCH ×4 (09:33→21:04)
--- NOTE | 2019-02-06 14:05 | Hospitalist Progress Note ---
Date of Service February 06, 2019 Assessment & Plan (1) Severe epistaxis: Patient presented to the emergency department with her fourth episode of severe bleeding in the past month. She had surgery by Dr. Reina on 01/21/2019. - She was assessed by Dr. Reina in the ED on admission. - Discussed with Dr. Reina on 02/03 - Rhinorocket removed on 02/04. If she re- bleeds, she will need to go to the OR. - Dr. Reina approved use of warfarin with goal of INR = 2 (no higher than 2.5.) If she re-bleeds with INR close to 2, she will need to stop anticoagulation and go on ASA 81mg. - No bleeding as of 02/06, though INR still < 2. (2) Chronic atrial fibrillation: Patient has chronic AV block with pacer. - Continue metoprolol 100mg PO BID - Plan for INR close to 2 - Restarted warfarin on 02/04 at lower dose than prior - 2.5mg PO daily - On 02/05, INR was 1.2. (3) H/O aortic valve replacement: Had TAVR bioprosthetic valve put in at [place] in 09/2015 with an embolic stroke afterward. - Held Plavix due to bleeding in 12/2018 - Continue statin (4) CAD (coronary artery disease), [place] coronary artery: See above (5) Hypertension: BP has been stable while inpatient. - Continue beta-inocencia and Imdur - Losartan was held on admission for unknown reasons. At this time BP is at goal, so will continue to hold for now. (6) Diabetes: A1c this admission was 6.7%. - Hold Humalog 50/50 mix until patient is eating regularly. - Place on Accu-Cheks before meals and at bedtime with NovoLog coverage per scale. - On 02/06, her blood sugars have been overall good. Only needing ~10 units per day. Given her likely placement, will start low-dose long-acting which can be adjusted as needed. - Start Lantus 5 units on 02/07 AM. (7) Anemia: Hemorrhagic disorder due to extrinsic circulating anticoagulant (Coumadin) with resultant acute blood loss anemia. - Baseline hgb is 13-14 (as recently as 12/2018). - Trend hgb - Stable at 9.0 on 06/15. - Gave IV iron x 1 dose to help replete iron stores lost from bleeding. (8) Hyperlipidemia: - Continue atorvastatin 10 mg p.o. every evening (9) DVT prophylaxis: At baseline, on warfarin for anticoagulation for her aortic valve - Holding heparin prophylaxis - Restarted warfarin on 02/04 -> Will let INR trickle up to prevent further epistaxis. Subjective Doing well. No major complaints. No further epistaxis. Review of Systems Review of Systems: All systems reviewed & are unremarkable except as noted in HPI & below Physical Exam Constitutional: WD/WN, vitals as above not lethargic Eyes: EOM intact bilaterally; no conjunctival abnormality ENMT: external ear and nose normal, oropharynx normal Nose: + epistaxis (Rhinorocket out of left nare, but still with blood at site.) Neck: trachea midline, no thyromegaly normal visual inspection Respiratory: normal respiratory effort, lungs clear to auscultation no respiratory distress Cardiovascular: RRR, no murmur, no edema Gastrointestinal (Abdomen): Inspection/Auscultation: abdomen normal to inspection; abdomen not distended Musculoskeletal: no cyanosis or clubbing, extremities motor strength 5/5 Skin: no rashes, warm and dry Neurologic: moves all extremities and awake Psychiatric: Orientation: alert, oriented to person and cooperative Results & Data Vital Signs (Past 12 Hours) Vital Signs Temp Pulse Pulse Resp BP BP Pulse Ox 02/06/19 12:00 36.7 C 60 20 121/70 93 02/06/19 07:10 36.7 C 60 20 119/78 96 PG Care Time/CCT Total # of Minutes Spent Total Time Spent with Patient: Total time spent is greater than 50% in coordination of care (as documented) at patient's floor/unit and/or counseling patient:
[2019-02-06] MEDS: WARFARIN SOD 2.5 MG TAB PO SCH (16:04)
[2019-02-06] MEDS: ATORVASTATIN 10 MG TAB PO SCH (21:05)
[2019-02-07 07:04] LABS: Hematocrit (blood only) 29.1 % (37-47); Hemoglobin 9.1 g/dL (12.0-16.0); Mean Corpuscular Hgb Conc 31.3 g/dL (32-36); Mean Corpuscular Volume 83.9 fL (80-100); Platelet Count 180 K/uL (130-400); RDW Standard Deviation 44.1 fL (36.4-46.3); Red Blood Count 3.47 M/uL (4.2-5.4); White Blood Count 6.98 K/uL (4.8-10.8)
[2019-02-07 07:22] LABS: INR 1.4 (0.9-1.1); Prothrombin Time 13.6 Seconds (9.0-12.0)
[2019-02-07] MEDS: INSULIN ASPART 100 UNITS/ML 3 ML PEN SC SCH ×4 (08:43→20:45)
[2019-02-07] MEDS: METOPROLOL TARTRATE 50 MG TAB PO SCH ×2 (08:44→20:46)
[2019-02-07] MEDS: ISOSORBIDE MONO EXTENDED REL 30 MG TABCR PO SCH (08:44)
[2019-02-07] MEDS: INSULIN GLARGINE SOLOSTAR 100 UNITS/ML 3 ML PEN SC SCH (08:45)
--- NOTE | 2019-02-07 16:50 | Hospitalist Progress Note ---
Date of Service February 07, 2019 Assessment & Plan (1) Severe epistaxis: Patient presented to the emergency department with her fourth episode of severe bleeding in the past month. She had surgery by Dr. Reina on 01/21/2019. - She was assessed by Dr. Reina in the ED on admission. - Discussed with Dr. Reina on 02/03 - Rhinorocket removed on 02/04. If she re- bleeds, she will need to go to the OR. So far, no further bleeding since then - Dr. Reina approved use of warfarin with goal of INR = 2 (no higher than 2.5.) If she re-bleeds with INR close to 2, she will need to stop anticoagulation and go on ASA 81mg. - No bleeding as of 02/06, though INR still < 2. (2) Chronic atrial fibrillation: Patient has chronic AV block with pacer. - Continue metoprolol 100mg PO BID - Plan for INR close to 2 - Restarted warfarin on 02/04 at lower dose than prior - 2.5mg PO daily - On 02/07, INR was 1.4. -follow INR in AM (3) H/O aortic valve replacement: Had TAVR bioprosthetic valve put in at [place] [facility] in 09/2015 with an embolic stroke afterward. - Held Plavix due to bleeding in 12/2018 - Continue statin (4) Hypertension: BP has been stable while inpatient. Mildly high readings today - Continue beta-inocencia and Imdur - Losartan was held on admission for unknown reasons. Will restart for tomorrow -restart home lasix as well (5) Diabetes: A1c this admission was 6.7%. - continue to hold Humalog 50/50 mix until patient is eating regularly. - Place on Accu-Cheks before meals and at bedtime with NovoLog coverage per scale. - blood sugars have been overall good - Started Lantus 5 units on 02/07 AM. 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 - Baseline hgb is 13-14 (as recently as 12/2018). - Trend hgb - remains stable at 9.1 on 02/07. -Received IV iron x 1 dose to help replete iron stores lost from bleeding. -follow CBC in AM (7) Hyperlipidemia: - Continue atorvastatin 10 mg p.o. every evening (8) DVT prophylaxis: At baseline, on warfarin for anticoagulation for her chronic afib - Holding heparin prophylaxis - Restarted warfarin on 02/04 -> Will let INR trickle up to prevent further epistaxis. Dispo-awaiting placement at SNF-is medically stable for discharge at this time Referrals placed to [facility] Subjective Pt feeling tired, but otherwise no complaints. No further epistaxis. No headache or lightheadedness. No CP or SOB, no abd pain, no constipation or diarrhea. Pt upset that she will be going to a residential Review of Systems Review of Systems: All systems reviewed & are unremarkable except as noted in HPI & below Physical Exam Constitutional: WD/WN, vitals as above Eyes: PERRL, conjunctivae normal, anicteric sclerae ENMT: external ear and nose normal, oropharynx normal Neck: trachea midline, no thyromegaly Respiratory: normal respiratory effort, lungs clear to auscultation Cardiovascular: RRR, no murmur, no edema Gastrointestinal (Abdomen): normal bowel sounds, soft, nontender, no hepatosplenomegaly Musculoskeletal: Extremities: extremities normal to inspection; no cyanosis and no clubbing Skin: no rashes, warm and dry Neurologic: moves all extremities and awake; no focal motor deficits Psychiatric: A+Ox3, euthymic affect Results & Data Vital Signs (Past 12 Hours) Vital Signs Temp Pulse Resp BP Pulse Ox 02/07/19 16:07 37.0 C 60 20 151/71 H 95 02/07/19 07:45 36.3 C L 61 16 151/75 H 93 Laboratory Results 02/07/19 02/07/19 02/07/19 Range/Units 16:30 11:57 08:04 WBC (4.8-10.8) K/uL RBC (4.2-5.4) M/uL Hgb (12.0-16.0) g/dL Hct (37-47) % MCV (80-100) fL MCH (25-34) pg MCHC (32-36) g/dL RDW Std Deviation (36.4-46.3) fL RDW Coeff of Debora (11.5-14.5) % Plt Count (130-400) K/uL MPV (7.4-10.4) fL PT (9.0-12.0) Seconds INR (0.9-1.1) POC Glucose 141 H 214 H 146 H (70-99) 02/07/19 02/07/19 02/06/19 Range/Units 06:51 06:51 20:41 WBC 6.98 (4.8-10.8) K/uL RBC 3.47 L (4.2-5.4) M/uL Hgb 9.1 L (12.0-16.0) g/dL Hct 29.1 L (37-47) % MCV 83.9 (80-100) fL MCH 26.2 (25-34) pg MCHC 31.3 L (32-36) g/dL RDW Std Deviation 44.1 (36.4-46.3) fL RDW Coeff of Debora 15.0 H (11.5-14.5) % Plt Count 180 (130-400) K/uL MPV 11.0 H (7.4-10.4) fL PT 13.6 H (9.0-12.0) Seconds INR 1.4 H (0.9-1.1) POC Glucose 171 H (70-99) PG Care Time/CCT Total # of Minutes Spent Total Time Spent with Patient: Total time spent is greater than 50% in coordination of care (as documented) at patient's floor/unit and/or counseling patient:
[2019-02-07] MEDS: WARFARIN SOD 2.5 MG TAB PO SCH (17:02)
[2019-02-07] MEDS: ATORVASTATIN 10 MG TAB PO SCH (20:46)
[2019-02-08] MEDS: METOPROLOL TARTRATE 50 MG TAB PO SCH ×2 (08:05→20:32)
[2019-02-08] MEDS: ISOSORBIDE MONO EXTENDED REL 30 MG TABCR PO SCH (08:05)
[2019-02-08] MEDS: CHOLECALCIFEROL 1,000 UNITS TAB PO SCH (08:09)
[2019-02-08] MEDS: LOSARTAN POTASSIUM 25 MG TAB PO SCH (08:10)
[2019-02-08] MEDS: CALCIUM 600MG + VIT D 400 IU TAB PO SCH (08:10)
[2019-02-08] MEDS: FUROSEMIDE 20 MG TAB PO SCH (08:10)
[2019-02-08 08:14] LABS: Basophils # (auto) 0.03 K/uL (0-0.2); Basophils % (auto) 0.4 %; Hematocrit (blood only) 31.6 % (37-47); Hemoglobin 9.9 g/dL (12.0-16.0); Immature Granulocytes % (auto) 1.5 %; Lymphocytes # (auto) 1.69 K/uL (1.2-3.4); Lymphocytes % (auto) 25.3 %; Mean Corpuscular Hgb Conc 31.3 g/dL (32-36); Mean Corpuscular Volume 84.7 fL (80-100); Monocytes # (auto) 1.07 K/uL (0.11-0.59); Neutrophils # (auto) 3.59 K/uL (1.4-6.5); Neutrophils % (auto) 53.8 %; Platelet Count 199 K/uL (130-400); RDW Coefficient of Variation 15.5 % (11.5-14.5); RDW Standard Deviation 46.3 fL (36.4-46.3); Red Blood Count 3.73 M/uL (4.2-5.4); White Blood Count 6.68 K/uL (4.8-10.8)
[2019-02-08 08:29] LABS: INR 1.5 (0.9-1.1); Prothrombin Time 15.1 Seconds (9.0-12.0)
[2019-02-08 08:45] LABS: BUN Creatinine Ratio 15.7 (10-20); Creatinine Clr Calc Pharmacy 38.1 ml/min; Est GFR (African American) 64.4; Est GFR (Non-African American) 55.6
[2019-02-08] MEDS: INSULIN GLARGINE SOLOSTAR 100 UNITS/ML 3 ML PEN SC SCH (08:56)
[2019-02-08] MEDS: INSULIN ASPART 100 UNITS/ML 3 ML PEN SC SCH ×4 (08:56→20:33)
[2019-02-08] MEDS: WARFARIN SOD 3 MG TAB PO SCH (16:07)
--- NOTE | 2019-02-08 17:35 | Hospitalist Progress Note ---
Date of Service February 08, 2019 Assessment & Plan (1) Severe epistaxis: Patient presented to the emergency department with her fourth episode of severe bleeding in the past month. She had surgery by Dr. Reina on 01/21/2019. - She was assessed by Dr. Reina in the ED on admission. - Discussed with Dr. Reina on 02/03 - Rhinorocket removed on 02/04. If she re- bleeds, she will need to go to the OR. Continues to be without any further bleeding since then - Dr. Reina approved use of warfarin with goal of INR = 2 (no higher than 2.5.) If she re-bleeds with INR close to 2, she will need to stop anticoagulation and go on ASA 81mg. - No bleeding as of 02/06, though INR still < 2. (2) Chronic atrial fibrillation: Patient has chronic AV block with pacer. 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 -Continue to hold Plavix due to bleeding in 12/2018 - Continue statin (4) Hypertension: BP has been stable while inpatient. Blood pressure readings normal today now that losartan has been restarted - Continue beta-inocencia, Imdur, and losartan -Continue home Lasix as well (5) Diabetes: A1c this admission was 6.7%. - continue to hold home Humalog 50/50 mix - Place on Accu-Cheks before meals and at bedtime with NovoLog coverage per scale. - blood sugars have been overall good - Started Lantus 5 units on 02/07 AM. 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 - Baseline hgb is 13-14 (as recently as 12/2018). - Trend hgb -remained stable to improved at 9.7 on 02/08 -Received IV iron x 1 dose to help replete iron stores lost from bleeding. -follow CBC in AM as Coumadin dose increased today (7) Hyperlipidemia: - Continue atorvastatin 10 mg p.o. every evening (8) DVT prophylaxis: At baseline, on warfarin for anticoagulation for her chronic afib - Holding heparin prophylaxis - Restarted warfarin on 02/04 -> Will let INR trickle up to prevent further epistaxis. Dispo-awaiting placement at SNF-is medically stable for discharge at this time Referrals placed to [facility] and [facility]-no beds available at [facility] and now awaiting acceptance to [facility] Subjective Patient has no complaints. No nosebleeding. She is tolerating p.o. and is anxiously awaiting discharge. Review of Systems Review of Systems: All systems reviewed & are unremarkable except as noted in HPI & below Physical Exam Constitutional: WD/WN, vitals as above Eyes: PERRL, conjunctivae normal, anicteric sclerae ENMT: external ear and nose normal, oropharynx normal Neck: trachea midline, no thyromegaly Respiratory: normal respiratory effort, lungs clear to auscultation Cardiovascular: RRR, no murmur, no edema Gastrointestinal (Abdomen): normal bowel sounds, soft, nontender, no hepatosplenomegaly Musculoskeletal: Extremities: extremities normal to inspection; no cyanosis and no clubbing Skin: no rashes, warm and dry Neurologic: moves all extremities and awake; no focal motor deficits Psychiatric: A+Ox3, euthymic affect Results & Data Vital Signs (Past 12 Hours) Vital Signs Temp Pulse Resp BP Pulse Ox 02/08/19 15:43 36.6 C 60 18 119/66 97 02/08/19 07:53 37.2 C 62 16 121/71 98 Laboratory Results 02/08/19 02/08/19 02/08/19 Range/Units 16:59 11:27 08:10 WBC (4.8-10.8) K/uL RBC (4.2-5.4) M/uL Hgb (12.0-16.0) g/dL Hct (37-47) % MCV (80-100) fL MCH (25-34) pg MCHC (32-36) g/dL RDW Std Deviation (36.4-46.3) fL RDW Coeff of Debora (11.5-14.5) % Plt Count (130-400) K/uL MPV (7.4-10.4) fL Immature Gran % (Auto) % Neut % (Auto) % Lymph % (Auto) % [place] % (Auto) % Eos % (Auto) % Baso % (Auto) % Immature Gran # (Auto) (0.00-0.02) K/uL Neut # (Auto) (1.4-6.5) K/uL Lymph # (Auto) (1.2-3.4) K/uL [place] # (Auto) (0.11-0.59) K/uL Eos # (Auto) (0-0.5) K/uL Baso # (Auto) (0-0.2) K/uL PT (9.0-12.0) Seconds INR (0.9-1.1) Sodium (136-145) mmol/L Potassium (3.5-5.1) mmol/L Chloride (98-107) mmol/L Carbon Dioxide (21-32) mmol/L Anion Gap (3-11) BUN (7-18) mg/dl Creatinine (0.6-1.2) mg/dl Est Cr Clr Drug Dosing ml/min Est GFR ( Amer) Est GFR (Non-Af Amer) BUN/Creatinine Ratio (10-20) Glucose (70-99) mg/dl POC Glucose 141 H 176 H 186 H (70-99) Calcium (8.5-10.1) mg/dl 02/08/19 02/08/19 02/08/19 Range/Units 08:02 08:02 08:02 WBC 6.68 (4.8-10.8) K/uL RBC 3.73 L (4.2-5.4) M/uL Hgb 9.9 L (12.0-16.0) g/dL Hct 31.6 L (37-47) % MCV 84.7 (80-100) fL MCH 26.5 (25-34) pg MCHC 31.3 L (32-36) g/dL RDW Std Deviation 46.3 (36.4-46.3) fL RDW Coeff of Debora 15.5 H (11.5-14.5) % Plt Count 199 (130-400) K/uL MPV 11.0 H (7.4-10.4) fL Immature Gran % (Auto) 1.5 % Neut % (Auto) 53.8 % Lymph % (Auto) 25.3 % [place] % (Auto) 16.0 % Eos % (Auto) 3.0 % Baso % (Auto) 0.4 % Immature Gran # (Auto) 0.10 H (0.00-0.02) K/uL Neut # (Auto) 3.59 (1.4-6.5) K/uL Lymph # (Auto) 1.69 (1.2-3.4) K/uL [place] # (Auto) 1.07 H (0.11-0.59) K/uL Eos # (Auto) 0.20 (0-0.5) K/uL Baso # (Auto) 0.03 (0-0.2) K/uL PT 15.1 H (9.0-12.0) Seconds INR 1.5 H (0.9-1.1) Sodium 142 (136-145) mmol/L Potassium 4.0 (3.5-5.1) mmol/L Chloride 108 H (98-107) mmol/L Carbon Dioxide 26 (21-32) mmol/L Anion Gap 7.0 (3-11) BUN 14 (7-18) mg/dl Creatinine 0.92 (0.6-1.2) mg/dl Est Cr Clr Drug Dosing 38.1 ml/min Est GFR ( Amer) 64.4 Est GFR (Non-Af Amer) 55.6 BUN/Creatinine Ratio 15.7 (10-20) Glucose 153 H (70-99) mg/dl POC Glucose (70-99) Calcium 9.0 (8.5-10.1) mg/dl 02/07/19 Range/Units 20:17 WBC (4.8-10.8) K/uL RBC (4.2-5.4) M/uL Hgb (12.0-16.0) g/dL Hct (37-47) % MCV (80-100) fL MCH (25-34) pg MCHC (32-36) g/dL RDW Std Deviation (36.4-46.3) fL RDW Coeff of Debora (11.5-14.5) % Plt Count (130-400) K/uL MPV (7.4-10.4) fL Immature Gran % (Auto) % Neut % (Auto) % Lymph % (Auto) % [place] % (Auto) % Eos % (Auto) % Baso % (Auto) % Immature Gran # (Auto) (0.00-0.02) K/uL Neut # (Auto) (1.4-6.5) K/uL Lymph # (Auto) (1.2-3.4) K/uL [place] # (Auto) (0.11-0.59) K/uL Eos # (Auto) (0-0.5) K/uL Baso # (Auto) (0-0.2) K/uL PT (9.0-12.0) Seconds INR (0.9-1.1) Sodium (136-145) mmol/L Potassium (3.5-5.1) mmol/L Chloride (98-107) mmol/L Carbon Dioxide (21-32) mmol/L Anion Gap (3-11) BUN (7-18) mg/dl Creatinine (0.6-1.2) mg/dl Est Cr Clr Drug Dosing ml/min Est GFR ( Amer) Est GFR (Non-Af Amer) BUN/Creatinine Ratio (10-20) Glucose (70-99) mg/dl POC Glucose 172 H (70-99) Calcium (8.5-10.1) mg/dl PG Care Time/CCT Total # of Minutes Spent Total Time Spent with Patient: Total time spent is greater than 50% in coordination of care (as documented) at patient's floor/unit and/or counseling patient:
[2019-02-08] MEDS: ATORVASTATIN 10 MG TAB PO SCH (20:32)
[2019-02-09 05:56] LABS: Basophils # (auto) 0.02 K/uL (0-0.2); Basophils % (auto) 0.3 %; Eosinophils # (auto) 0.17 K/uL (0-0.5); Eosinophils % (auto) 2.5 %; Hematocrit (blood only) 30.2 % (37-47); Immature Granulocytes # (auto) 0.08 K/uL (0.00-0.02); Immature Granulocytes % (auto) 1.2 %; Lymphocytes # (auto) 1.77 K/uL (1.2-3.4); Lymphocytes % (auto) 26.3 %; Mean Corpuscular Hgb Conc 33.1 g/dL (32-36); Mean Corpuscular Volume 83.4 fL (80-100); Mean Platelet Volume 11.1 fL (7.4-10.4); Monocytes # (auto) 1.12 K/uL (0.11-0.59); Monocytes % (auto) 16.6 %; Neutrophils # (auto) 3.58 K/uL (1.4-6.5); Neutrophils % (auto) 53.1 %; Platelet Count 207 K/uL (130-400); RDW Coefficient of Variation 15.1 % (11.5-14.5); Red Blood Count 3.62 M/uL (4.2-5.4); White Blood Count 6.74 K/uL (4.8-10.8)
[2019-02-09 06:03] LABS: INR 1.6 (0.9-1.1); Prothrombin Time 15.7 Seconds (9.0-12.0)
[2019-02-09 06:33] LABS: BUN Creatinine Ratio 20.6 (10-20); Calcium 8.7 mg/dl (8.5-10.1); Creatinine Clr Calc Pharmacy 34.3 ml/min; Est GFR (African American) 56.9; Est GFR (Non-African American) 49.1; Potassium 4.5 mmol/L (3.5-5.1)
[2019-02-09] MEDS: CHOLECALCIFEROL 1,000 UNITS TAB PO SCH (07:58)
[2019-02-09] MEDS: ISOSORBIDE MONO EXTENDED REL 30 MG TABCR PO SCH (07:58)
[2019-02-09] MEDS: LOSARTAN POTASSIUM 25 MG TAB PO SCH (07:58)
[2019-02-09] MEDS: METOPROLOL TARTRATE 50 MG TAB PO SCH ×2 (07:58→20:06)
[2019-02-09] MEDS: FUROSEMIDE 20 MG TAB PO SCH (07:59)
[2019-02-09] MEDS: CALCIUM 600MG + VIT D 400 IU TAB PO SCH (07:59)
[2019-02-09] MEDS: INSULIN ASPART 100 UNITS/ML 3 ML PEN SC SCH ×4 (08:29→20:57)
[2019-02-09] MEDS: INSULIN GLARGINE SOLOSTAR 100 UNITS/ML 3 ML PEN SC SCH (08:30)
[2019-02-09] MEDS: WARFARIN SOD 3 MG TAB PO SCH (16:46)
--- NOTE | 2019-02-09 18:51 | Hospitalist Progress Note ---
Date of Service February 09, 2019 Assessment & Plan (1) Severe epistaxis: Patient presented to the emergency department with her fourth episode of severe bleeding in the past month. She had surgery by Dr. Reina on 01/21/2019. - She was assessed by Dr. Reina in the ED on admission. - Discussed with Dr. Reina on 02/03 - Rhinorocket removed on 02/04. If she re- bleeds, would require OR intervention. - Has not had any further bleeding, now resolved. - Dr. Reina approved use of warfarin with goal of INR = 2 (no higher than 2.5.) If she re-bleeds with INR close to 2, she will need to stop Warfarin and take single agent ASA 81 mg therapy. - No bleeding as of 02/09, though INR remains <2. (2) Chronic atrial fibrillation: Patient has chronic AV block with pacer. - Continue metoprolol - dose was decreased to 50 mg BID during this admission (on 100 mg BID at home) - Restarted warfarin on 02/04 at lower dose than prior - 2.5mg PO daily; increased to 3 mg PO daily on 02/08, will continue this dose. 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 - Plavix was d/c'ed due to bleeding; on single agent aspirin at home, currently on hold. - Continue statin as prescribed. (4) Hypertension: BP has been stable while inpatient. - Continue beta-inocencia (at decreased dose), Imdur and Losartan (now resumed) - Continue home Lasix 20 mg qAM. (5) Diabetes: A1c this admission was 6.7%. - Continue to hold home Humalog 50/50 mix - Accu-Cheks before meals and at bedtime with NovoLog coverage per scale. - Blood glucose has been relatively well controlled. - Started Lantus, now increased to 10 units daily. 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 - Baseline hgb is 13-14 (as recently as 12/2018). - Received IV iron x 1 dose to help replete iron stores lost from bleeding. - Monitor CBC qAM -- H/H has been stable. (7) Hyperlipidemia: - Continue atorvastatin 10 mg PO qhs. (8) DVT prophylaxis: At baseline, on warfarin for anticoagulation for her chronic afib - Holding heparin prophylaxis; Restarted warfarin on 02/04 -> Will let INR trickle up to prevent further epistaxis. Dispo: Discharge to SNF pending placement - [facility] vs. [facility]. Her family would prefer [facility] but they may not have beds available at this time. Her daughter would like to be contacted in the morning regarding discharge planning. Second choice is [facility]. Discharge likely over next 24-48 hours. Supervising Physician Co-Signing Physician Notes PA Supervision Note: I did not personally see or examine the patient today, but I verified all lake points of EDMUNDO Fraser's assessment and plan with the following exceptions/additions: None Subjective Pt. is doing well. No further episodes of bleeding noted. Denies chest pain, SOB, N/V. Had a BM this morning. Her daughter was present at bedside, discussed discharge planning. Review of Systems Review of Systems: All systems reviewed & are unremarkable except as noted in HPI & below Constitutional: no fever, no chills, no fatigue, no weakness and no anorexia Ear, Nose, Mouth, Throat: no epistaxis Respiratory: no cough, no dyspnea and no dyspnea on exertion Cardiovascular: no chest pain, no palpitations, no lightheadedness and no edema Gastrointestinal: no abdominal pain, no nausea, no vomiting, no constipation and no diarrhea/loose stools Genitourinary: no difficulty urinating Musculoskeletal: no back pain and no joint pain Integumentary: no non-healing lesions Allergy / Immunological: no rash Physical Exam Physical Exam: General: Resting comfortably in no apparent distress HEENT: NC/AT; PERRLA with EOMI; [place] conjunctiva, MMM. No erythema of posterior pharynx Neck: Supple and nontender Cardiac: RRR Lungs: CTA bilaterally; No rhonchi, wheezing, or rales Abdomen: Bowel normoactive X 4; Nontender to palpation Extremities: Warm. No edema present Neuro: No focal weakness Skin: No rash Results & Data Vital Signs (Past 12 Hours) Vital Signs Temp Pulse Resp BP Pulse Ox 02/09/19 15:34 36.8 C 62 18 104/62 95 02/09/19 07:13 37 C 61 16 107/59 L 94 Laboratory Results 02/09/19 02/09/19 02/09/19 Range/Units 16:46 11:33 08:08 WBC (4.8-10.8) K/uL RBC (4.2-5.4) M/uL Hgb (12.0-16.0) g/dL Hct (37-47) % MCV (80-100) fL MCH (25-34) pg MCHC (32-36) g/dL RDW Std Deviation (36.4-46.3) fL RDW Coeff of Debora (11.5-14.5) % Plt Count (130-400) K/uL MPV (7.4-10.4) fL Immature Gran % (Auto) % Neut % (Auto) % Lymph % (Auto) % [place] % (Auto) % Eos % (Auto) % Baso % (Auto) % Immature Gran # (Auto) (0.00-0.02) K/uL Neut # (Auto) (1.4-6.5) K/uL Lymph # (Auto) (1.2-3.4) K/uL [place] # (Auto) (0.11-0.59) K/uL Eos # (Auto) (0-0.5) K/uL Baso # (Auto) (0-0.2) K/uL PT (9.0-12.0) Seconds INR (0.9-1.1) Sodium (136-145) mmol/L Potassium (3.5-5.1) mmol/L Chloride (98-107) mmol/L Carbon Dioxide (21-32) mmol/L Anion Gap (3-11) BUN (7-18) mg/dl Creatinine (0.6-1.2) mg/dl Est Cr Clr Drug Dosing ml/min Est GFR ( Amer) Est GFR (Non-Af Amer) BUN/Creatinine Ratio (10-20) Glucose (70-99) mg/dl POC Glucose 168 H 263 H 154 H (70-99) Calcium (8.5-10.1) mg/dl 02/09/19 02/09/19 02/09/19 Range/Units 05:41 05:41 05:41 WBC 6.74 (4.8-10.8) K/uL RBC 3.62 L (4.2-5.4) M/uL Hgb 10.0 L (12.0-16.0) g/dL Hct 30.2 L (37-47) % MCV 83.4 (80-100) fL MCH 27.6 (25-34) pg MCHC 33.1 (32-36) g/dL RDW Std Deviation 45.0 (36.4-46.3) fL RDW Coeff of Debora 15.1 H (11.5-14.5) % Plt Count 207 (130-400) K/uL MPV 11.1 H (7.4-10.4) fL Immature Gran % (Auto) 1.2 % Neut % (Auto) 53.1 % Lymph % (Auto) 26.3 % [place] % (Auto) 16.6 % Eos % (Auto) 2.5 % Baso % (Auto) 0.3 % Immature Gran # (Auto) 0.08 H (0.00-0.02) K/uL Neut # (Auto) 3.58 (1.4-6.5) K/uL Lymph # (Auto) 1.77 (1.2-3.4) K/uL [place] # (Auto) 1.12 H (0.11-0.59) K/uL Eos # (Auto) 0.17 (0-0.5) K/uL Baso # (Auto) 0.02 (0-0.2) K/uL PT 15.7 H (9.0-12.0) Seconds INR 1.6 H (0.9-1.1) Sodium 142 (136-145) mmol/L Potassium 4.5 (3.5-5.1) mmol/L Chloride 107 (98-107) mmol/L Carbon Dioxide 30 (21-32) mmol/L Anion Gap 5.0 (3-11) BUN 21 H (7-18) mg/dl Creatinine 1.02 (0.6-1.2) mg/dl Est Cr Clr Drug Dosing 34.3 ml/min Est GFR ( Amer) 56.9 Est GFR (Non-Af Amer) 49.1 BUN/Creatinine Ratio 20.6 H (10-20) Glucose 152 H (70-99) mg/dl POC Glucose (70-99) Calcium 8.7 (8.5-10.1) mg/dl 02/08/ Range/Units 20:11 WBC (4.8-10.8) K/uL RBC (4.2-5.4) M/uL Hgb (12.0-16.0) g/dL Hct (37-47) % MCV (80-100) fL MCH (25-34) pg MCHC (32-36) g/dL RDW Std Deviation (36.4-46.3) fL RDW Coeff of Debora (11.5-14.5) % Plt Count (130-400) K/uL MPV (7.4-10.4) fL Immature Gran % (Auto) % Neut % (Auto) % Lymph % (Auto) % [place] % (Auto) % Eos % (Auto) % Baso % (Auto) % Immature Gran # (Auto) (0.00-0.02) K/uL Neut # (Auto) (1.4-6.5) K/uL Lymph # (Auto) (1.2-3.4) K/uL [place] # (Auto) (0.11-0.59) K/uL Eos # (Auto) (0-0.5) K/uL Baso # (Auto) (0-0.2) K/uL PT (9.0-12.0) Seconds INR (0.9-1.1) Sodium (136-145) mmol/L Potassium (3.5-5.1) mmol/L Chloride (98-107) mmol/L Carbon Dioxide (21-32) mmol/L Anion Gap (3-11) BUN (7-18) mg/dl Creatinine (0.6-1.2) mg/dl Est Cr Clr Drug Dosing ml/min Est GFR ( Amer) Est GFR (Non-Af Amer) BUN/Creatinine Ratio (10-20) Glucose (70-99) mg/dl POC Glucose 260 H (70-99) Calcium (8.5-10.1) mg/dl PG Care Time/CCT Total # of Minutes Spent Total Time Spent with Patient: Total time spent is greater than 50% in coordination of care (as documented) at patient's floor/unit and/or counseling patient:
[2019-02-09] MEDS: ATORVASTATIN 10 MG TAB PO SCH (20:07)
[2019-02-09] MEDS: ACETAMINOPHEN 325 MG TAB PO PRN (20:57)
[2019-02-10 07:16] LABS: Hematocrit (blood only) 30.7 % (37-47); Hemoglobin 9.3 g/dL (12.0-16.0); Mean Corpuscular Hgb Conc 30.3 g/dL (32-36); Mean Corpuscular Volume 85.3 fL (80-100); Platelet Count 203 K/uL (130-400); RDW Coefficient of Variation 15.1 % (11.5-14.5); RDW Standard Deviation 46.7 fL (36.4-46.3); White Blood Count 6.42 K/uL (4.8-10.8)
[2019-02-10 07:24] LABS: INR 1.6 (0.9-1.1); Prothrombin Time 15.8 Seconds (9.0-12.0)
[2019-02-10 07:49] LABS: BUN Creatinine Ratio 20.9 (10-20); Calcium 9.1 mg/dl (8.5-10.1); Creatinine Clr Calc Pharmacy 33.7 ml/min; Est GFR (African American) 55.6; Est GFR (Non-African American) 47.9; Potassium 4.4 mmol/L (3.5-5.1)
[2019-02-10] MEDS: CHOLECALCIFEROL 1,000 UNITS TAB PO SCH (08:13)
[2019-02-10] MEDS: ISOSORBIDE MONO EXTENDED REL 30 MG TABCR PO SCH (08:14)
[2019-02-10] MEDS: FUROSEMIDE 20 MG TAB PO SCH (08:14)
[2019-02-10] MEDS: CALCIUM 600MG + VIT D 400 IU TAB PO SCH (08:14)
[2019-02-10] MEDS: LOSARTAN POTASSIUM 25 MG TAB PO SCH (08:14)
[2019-02-10] MEDS: METOPROLOL TARTRATE 50 MG TAB PO SCH ×2 (08:14→21:07)
[2019-02-10] MEDS: INSULIN GLARGINE SOLOSTAR 100 UNITS/ML 3 ML PEN SC SCH (08:18)
[2019-02-10] MEDS: INSULIN ASPART 100 UNITS/ML 3 ML PEN SC SCH ×4 (08:18→21:10)
--- NOTE | 2019-02-10 12:37 | Hospitalist Progress Note ---
Date of Service February 10, 2019 Assessment & Plan (1) Severe epistaxis: Patient presented to the emergency department with her fourth episode of severe bleeding in the past month. S/p surgery by Dr. Reina on 01/21/2019. - Discussed with Dr. Reina on 02/03 - Rhinorocket removed on 02/04. If she re-b odell, would require OR intervention. - Has not had any further bleeding, now completely resolved. - Dr. Reina approved use of warfarin with goal of INR = 2 (no higher than 2.5.) If she re-bleeds with INR close to 2, she will need to stop Warfarin and take single agent ASA 81 mg therapy. - No bleeding as of 02/10, though INR remains <2. - Start saline nasal sprays q6hr scheduled. (2) Chronic atrial fibrillation: Patient has chronic AV block with pacer. - Continue metoprolol - dose was decreased to 50 mg BID during this admission (previously on 100 mg BID at home) - Restarted warfarin on 02/04 at lower dose than prior - increased to 3 mg PO daily on 02/08, will continue this dose. 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 - Plavix was d/c'ed due to bleeding; on single agent aspirin at home, currently holding. - Continue statin as prescribed. (4) Hypertension: - Continue beta-inocencia (at decreased dose), Imdur and Losartan. - Continue home Lasix 20 mg qAM. (5) Diabetes: A1c this admission was 6.7%. - Continue to hold home Humalog. - Accu-Cheks ac/hs with SSI coverage. - Blood glucose has been well controlled. - Started Lantus, increased to 10 units daily. 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 - Baseline hgb is 13-14 (as recently as 12/2018). - Received IV iron x 1 dose to help replete iron stores lost from bleeding. - Monitor CBC qAM -- H/H has been stable. (7) Hyperlipidemia: - Continue atorvastatin 10 mg PO qhs. (8) DVT prophylaxis: - Holding heparin prophylaxis; Restarted warfarin on 02/04 -> allow INR to trend up slowly due to recent acute epistaxis. Dispo: Discharge to SNF pending placement, will likely be discharged to [facility] on Thursday02/11/19. Supervising Physician Co-Signing Physician Notes PA Supervision Note: I did not personally see or examine the patient today, but I verified all lake points of EDMUNDO Fraser's assessment and plan with the following exceptions/additions: None Subjective Pt. is doing well overall. She did blow her nose this morning -- had light pink discharge but no evidence of active acute bleeding. Will start saline nasal sprays scheduled. She is constipated -- takes stool softener and Miralax daily at home. Will start bowel regimen as inpt. Denies chest pain, SOB, N/V, abd pain. Plan for placement at [facility] likely on 02/11/19. Review of Systems Review of Systems: All systems reviewed & are unremarkable except as noted in HPI & below Constitutional: no fever, no chills, no fatigue, no weakness and no anorexia Ear, Nose, Mouth, Throat: no epistaxis Respiratory: no cough, no dyspnea and no dyspnea on exertion Cardiovascular: no chest pain, no palpitations and no edema Gastrointestinal: + constipation; no abdominal pain, no nausea and no vomiting Genitourinary: no difficulty urinating Musculoskeletal: no back pain and no joint pain Integumentary: no non-healing lesions Allergy / Immunological: no rash Physical Exam Physical Exam: General: No apparent distress HEENT: NC/AT; PERRLA with EOMI; [place] conjunctiva, MMM. Neck: Supple and nontender Cardiac: RRR Lungs: CTA bilaterally; No rhonchi, wheezing, or rales Abdomen: Bowel normoactive X 4; Nontender to palpation Extremities: Warm. No edema present Neuro: No focal weakness Skin: No rash Results & Data Vital Signs (Past 12 Hours) Vital Signs Temp Pulse Resp BP Pulse Ox 02/10/19 07:00 36.5 C 60 24 138/67 99 Laboratory Results 02/10/19 02/10/19 02/10/19 Range/Units 11:29 07:53 07:04 WBC (4.8-10.8) K/uL RBC (4.2-5.4) M/uL Hgb (12.0-16.0) g/dL Hct (37-47) % MCV (80-100) fL MCH (25-34) pg MCHC (32-36) g/dL RDW Std Deviation (36.4-46.3) fL RDW Coeff of Debora (11.5-14.5) % Plt Count (130-400) K/uL MPV (7.4-10.4) fL PT 15.8 H (9.0-12.0) Seconds INR 1.6 H (0.9-1.1) Sodium (136-145) mmol/L Potassium (3.5-5.1) mmol/L Chloride (98-107) mmol/L Carbon Dioxide (21-32) mmol/L Anion Gap (3-11) BUN (7-18) mg/dl Creatinine (0.6-1.2) mg/dl Est Cr Clr Drug Dosing ml/min Est GFR ( Amer) Est GFR (Non-Af Amer) BUN/Creatinine Ratio (10-20) Glucose (70-99) mg/dl POC Glucose 173 H 165 H (70-99) Calcium (8.5-10.1) mg/dl 02/10/19 02/10/19 02/09/19 Range/Units 07:04 07:04 20:22 WBC 6.42 (4.8-10.8) K/uL RBC 3.60 L (4.2-5.4) M/uL Hgb 9.3 L (12.0-16.0) g/dL Hct 30.7 L (37-47) % MCV 85.3 (80-100) fL MCH 25.8 (25-34) pg MCHC 30.3 L (32-36) g/dL RDW Std Deviation 46.7 H (36.4-46.3) fL RDW Coeff of Debora 15.1 H (11.5-14.5) % Plt Count 203 (130-400) K/uL MPV 11.0 H (7.4-10.4) fL PT (9.0-12.0) Seconds INR (0.9-1.1) Sodium 143 (136-145) mmol/L Potassium 4.4 (3.5-5.1) mmol/L Chloride 108 H (98-107) mmol/L Carbon Dioxide 30 (21-32) mmol/L Anion Gap 5.0 (3-11) BUN 22 H (7-18) mg/dl Creatinine 1.04 (0.6-1.2) mg/dl Est Cr Clr Drug Dosing 33.7 ml/min Est GFR ( Amer) 55.6 Est GFR (Non-Af Amer) 47.9 BUN/Creatinine Ratio 20.9 H (10-20) Glucose 148 H (70-99) mg/dl POC Glucose 189 H (70-99) Calcium 9.1 (8.5-10.1) mg/dl 02/09/19 Range/Units 16:46 WBC (4.8-10.8) K/uL RBC (4.2-5.4) M/uL Hgb (12.0-16.0) g/dL Hct (37-47) % MCV (80-100) fL MCH (25-34) pg MCHC (32-36) g/dL RDW Std Deviation (36.4-46.3) fL RDW Coeff of Debora (11.5-14.5) % Plt Count (130-400) K/uL MPV (7.4-10.4) fL PT (9.0-12.0) Seconds INR (0.9-1.1) Sodium (136-145) mmol/L Potassium (3.5-5.1) mmol/L Chloride (98-107) mmol/L Carbon Dioxide (21-32) mmol/L Anion Gap (3-11) BUN (7-18) mg/dl Creatinine (0.6-1.2) mg/dl Est Cr Clr Drug Dosing ml/min Est GFR ( Amer) Est GFR (Non-Af Amer) BUN/Creatinine Ratio (10-20) Glucose (70-99) mg/dl POC Glucose 168 H (70-99) Calcium (8.5-10.1) mg/dl PG Care Time/CCT Total # of Minutes Spent Total Time Spent with Patient: Total time spent is greater than 50% in coordination of care (as documented) at patient's floor/unit and/or counseling patient:
[2019-02-10] MEDS: POLYETHYLENE (MIRALAX) 17 GM PACK PO SCH (12:58)
[2019-02-10] MEDS: DOCUSATE SODIUM 100 MG CAP PO SCH ×2 (12:58→21:08)
[2019-02-10] MEDS: SODIUM CHLORIDE 0.65% NA SOLN 45 ML (OCEAN) SCH ×3 (12:59→21:17)
[2019-02-10] MEDS: WARFARIN SOD 3 MG TAB PO SCH (16:35)
[2019-02-10] MEDS: ATORVASTATIN 10 MG TAB PO SCH (21:08)
[2019-02-11 07:23] LABS: Hematocrit (blood only) 30.1 % (37-47); Hemoglobin 9.3 g/dL (12.0-16.0); Mean Corpuscular Hgb Conc 30.9 g/dL (32-36); Mean Corpuscular Volume 84.1 fL (80-100); Platelet Count 211 K/uL (130-400); RDW Coefficient of Variation 14.9 % (11.5-14.5); RDW Standard Deviation 45.3 fL (36.4-46.3); Red Blood Count 3.58 M/uL (4.2-5.4); White Blood Count 6.85 K/uL (4.8-10.8)
[2019-02-11 07:42] LABS: INR 1.7 (0.9-1.1); Prothrombin Time 17.1 Seconds (9.0-12.0)
[2019-02-11] MEDS: ISOSORBIDE MONO EXTENDED REL 30 MG TABCR PO SCH (08:14)
[2019-02-11] MEDS: CHOLECALCIFEROL 1,000 UNITS TAB PO SCH (08:14)
[2019-02-11] MEDS: FUROSEMIDE 20 MG TAB PO SCH (08:15)
[2019-02-11] MEDS: DOCUSATE SODIUM 100 MG CAP PO SCH ×2 (08:15→22:08)
[2019-02-11] MEDS: METOPROLOL TARTRATE 50 MG TAB PO SCH ×2 (08:15→22:09)
[2019-02-11] MEDS: SODIUM CHLORIDE 0.65% NA SOLN 45 ML (OCEAN) SCH ×4 (08:15→22:11)
[2019-02-11] MEDS: CALCIUM 600MG + VIT D 400 IU TAB PO SCH (08:15)
[2019-02-11] MEDS: LOSARTAN POTASSIUM 25 MG TAB PO SCH (08:15)
[2019-02-11] MEDS: POLYETHYLENE (MIRALAX) 17 GM PACK PO SCH (08:15)
[2019-02-11] MEDS: INSULIN GLARGINE SOLOSTAR 100 UNITS/ML 3 ML PEN SC SCH (08:21)
[2019-02-11] MEDS: INSULIN ASPART 100 UNITS/ML 3 ML PEN SC SCH ×4 (08:23→22:19)
[2019-02-11] MEDS: WARFARIN SOD 3 MG TAB PO SCH (16:51)
--- NOTE | 2019-02-11 17:47 | Hospitalist Progress Note ---
Date of Service February 11, 2019 Assessment & Plan (1) Severe epistaxis: Patient presented to the emergency department with her fourth episode of severe bleeding in the past month. S/p surgery by Dr. Reina on 01/21/2019. - Discussed with Dr. Reina on 02/03 - Rhino rocket removed on 02/04. If she re- bleeds, would require OR intervention. - Has not had any further bleeding, now completely resolved. - Dr. Reina approved use of warfarin with goal of INR = 2 (no higher than 2.5.) If she re-bleeds with INR close to 2, she will need to stop Warfarin and take single agent ASA 81 mg therapy. - No bleeding as of 02/11, though INR remains <2. - continue saline nasal sprays q6hr scheduled. -f/u with ENT in 1-2 weeks as outpt (2) Chronic atrial fibrillation: Patient has chronic AV block with pacer. - Continue metoprolol - dose was decreased to 50 mg BID during this admission (previously on 100 mg BID at home) for hypotension on admission - Restarted warfarin on 02/04 at lower dose than prior - increased to 3 mg PO daily on 02/08, will continue this dose. 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 - Plavix was d/c'ed due to bleeding; on single agent aspirin at home, currently holding and would not restart as is already on coumadin and has had severe epistaxis. - Continue statin as prescribed. (4) Hypertension: - Continue beta-inocencia (at decreased dose), Imdur and Losartan. - Continue home Lasix 20 mg qAM. (5) Diabetes: A1c this admission was 6.7%. - Continue to hold home Humalog. - Accu-Cheks ac/hs with SSI coverage. - Blood glucose has been well controlled. - Started Lantus 10 units daily. 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 - Baseline hgb is 13-14 (as recently as 12/2018). - Received IV iron x 1 dose to help replete iron stores lost from bleeding. - Monitor CBC qAM -- H/H has been stable. (7) Hyperlipidemia: - Continue atorvastatin 10 mg PO qhs. (8) DVT prophylaxis: Warfarin Dispo: Discharge to SNF at [facility]-has been medically stable now for 7 days. Auth was applied for on the morning of 02/10 and we are still awaiting approval as of evening of 02/11. Hopeful for dc tomorrow Subjective Pt has no concerns, no nosebleeds, no chest pain, not dizzy. Anand po, moving bowels, making urine. Review of Systems Review of Systems: All systems reviewed & are unremarkable except as noted in HPI & below Physical Exam Constitutional: WD/WN, vitals as above Eyes: PERRL, conjunctivae normal, anicteric sclerae ENMT: external ear and nose normal, oropharynx normal (no blood or scabs visualized in anterior nasal cavity) Neck: trachea midline, no thyromegaly Respiratory: normal respiratory effort, lungs clear to auscultation Cardiovascular: RRR, no murmur, no edema Gastrointestinal (Abdomen): normal bowel sounds, soft, nontender, no hepatosplenomegaly Musculoskeletal: Extremities: extremities normal to inspection; no cyanosis and no clubbing Skin: no rashes, warm and dry Neurologic: moves all extremities and awake; no focal motor deficits Psychiatric: A+Ox3, euthymic affect Results & Data Vital Signs (Past 12 Hours) Vital Signs Temp Pulse Resp BP Pulse Ox 02/11/19 16:06 36.8 C 71 18 103/54 L 96 02/11/19 07:28 37.2 C 68 20 113/67 93 Laboratory Results 02/11/19 02/11/19 02/11/19 Range/Units 17:02 11:34 07:54 WBC (4.8-10.8) K/uL RBC (4.2-5.4) M/uL Hgb (12.0-16.0) g/dL Hct (37-47) % MCV (80-100) fL MCH (25-34) pg MCHC (32-36) g/dL RDW Std Deviation (36.4-46.3) fL RDW Coeff of Debora (11.5-14.5) % Plt Count (130-400) K/uL MPV (7.4-10.4) fL PT (9.0-12.0) Seconds INR (0.9-1.1) POC Glucose 92 231 H 153 H (70-99) 02/11/19 02/11/19 02/10/19 Range/Units 07:09 07:09 20:03 WBC 6.85 (4.8-10.8) K/uL RBC 3.58 L (4.2-5.4) M/uL Hgb 9.3 L (12.0-16.0) g/dL Hct 30.1 L (37-47) % MCV 84.1 (80-100) fL MCH 26.0 (25-34) pg MCHC 30.9 L (32-36) g/dL RDW Std Deviation 45.3 (36.4-46.3) fL RDW Coeff of Debora 14.9 H (11.5-14.5) % Plt Count 211 (130-400) K/uL MPV 11.0 H (7.4-10.4) fL PT 17.1 H (9.0-12.0) Seconds INR 1.7 H (0.9-1.1) POC Glucose 146 H (70-99) PG Care Time/CCT Total # of Minutes Spent Total Time Spent with Patient: Total time spent is greater than 50% in coordination of care (as documented) at patient's floor/unit and/or counseling patient:
[2019-02-11] MEDS: ATORVASTATIN 10 MG TAB PO SCH (22:09)
[2019-02-11] MEDS: ACETAMINOPHEN 325 MG TAB PO PRN (22:12)
[2019-02-12] MEDS: SODIUM CHLORIDE 0.65% NA SOLN 45 ML (OCEAN) SCH ×2 (05:13→11:13)
[2019-02-12 07:03] LABS: INR 1.8 (0.9-1.1); Prothrombin Time 17.8 Seconds (9.0-12.0)
[2019-02-12 07:04] LABS: Basophils # (auto) 0.03 K/uL (0-0.2); Basophils % (auto) 0.5 %; Eosinophils # (auto) 0.07 K/uL (0-0.5); Eosinophils % (auto) 1.3 %; Hematocrit (blood only) 31.5 % (37-47); Hemoglobin 9.6 g/dL (12.0-16.0); Immature Granulocytes # (auto) 0.06 K/uL (0.00-0.02); Immature Granulocytes % (auto) 1.1 %; Lymphocytes # (auto) 1.65 K/uL (1.2-3.4); Lymphocytes % (auto) 30.2 %; Mean Corpuscular Hgb Conc 30.5 g/dL (32-36); Mean Corpuscular Volume 83.6 fL (80-100); Monocytes # (auto) 0.89 K/uL (0.11-0.59); Monocytes % (auto) 16.3 %; Neutrophils # (auto) 2.76 K/uL (1.4-6.5); Neutrophils % (auto) 50.6 %; Platelet Count 225 K/uL (130-400); RDW Coefficient of Variation 15.1 % (11.5-14.5); RDW Standard Deviation 46.1 fL (36.4-46.3); Red Blood Count 3.77 M/uL (4.2-5.4); White Blood Count 5.46 K/uL (4.8-10.8)
[2019-02-12] MEDS: CHOLECALCIFEROL 1,000 UNITS TAB PO SCH (08:51)
[2019-02-12] MEDS: INSULIN ASPART 100 UNITS/ML 3 ML PEN SC SCH ×2 (08:51→12:15)
[2019-02-12] MEDS: INSULIN GLARGINE SOLOSTAR 100 UNITS/ML 3 ML PEN SC SCH (08:52)
[2019-02-12] MEDS: DOCUSATE SODIUM 100 MG CAP PO SCH (08:53)
[2019-02-12] MEDS: ISOSORBIDE MONO EXTENDED REL 30 MG TABCR PO SCH (08:53)
[2019-02-12] MEDS: METOPROLOL TARTRATE 50 MG TAB PO SCH (08:53)
[2019-02-12] MEDS: FUROSEMIDE 20 MG TAB PO SCH (08:54)
[2019-02-12] MEDS: LOSARTAN POTASSIUM 25 MG TAB PO SCH (08:54)
[2019-02-12] MEDS: CALCIUM 600MG + VIT D 400 IU TAB PO SCH (08:54)
[2019-02-12] MEDS: POLYETHYLENE (MIRALAX) 17 GM PACK PO SCH (08:54)
--- NOTE | 2019-02-12 10:42 | Discharge Summary ---
Date of Service February 12, 2019 Admission HPI Per Admitting Provider The patient is a 88-year-old female with a past medical history including chronic anticoagulation with warfarin for aortic valve replacement, who is now had her fourth nosebleed in the past month. She was taken to the OR by Dr. Reina on 01/21/2019, and had been doing well until today when the recurrent nosebleed occurred. Her bleeding has been controlled by placement of a Rhino Rocket in the left nares by the ED. Principal Diagnosis Epistaxis, acute blood loss anemia Discharge Exam Constitutional WD/WN, vitals as above Eyes PERRL, conjunctivae normal, anicteric sclerae ENMT external ear and nose normal, oropharynx normal (no blood or scabs visualized in anterior nasal cavity) Neck trachea midline, no thyromegaly Respiratory normal respiratory effort, lungs clear to auscultation Cardiovascular RRR, no murmur, no edema Gastrointestinal (Abdomen) normal bowel sounds, soft, nontender, no hepatosplenomegaly Musculoskeletal Extremities: extremities normal to inspection; no cyanosis and no clubbing Skin no rashes, warm and dry Neurologic moves all extremities and awake; no focal motor deficits Psychiatric A+Ox3, euthymic affect Discharge Data Allergies Allergy/AdvReac Type Severity Reaction Status Date / Time adhesive Allergy Mild IRRITATION Verified 01/31/19 23:30 FROM ECG PATCHES/ LEADS RANJEET Inhibitors Allergy Unknown COUGH Verified 01/31/19 23:30 codeine Allergy Unknown hallucinate Verified 01/31/19 23:30 s morphine Allergy Unknown FEELS HIGH Verified 01/31/19 23:30 prednisone Allergy Unknown unknown Verified 01/31/19 23:30 per daughter Consultations Cardiology ENT Hospital Course (1) Severe epistaxis: Patient presented to the emergency department with her fourth episode of severe bleeding in the past month. S/p surgery by Dr. Reina on 01/21/2019. - Discussed with Dr. Reina on 02/03 - Rhino rocket removed on 02/04. If she re- bleeds, would require OR intervention. - Has not had any further bleeding, now completely resolved. - Dr. Reina approved use of warfarin with goal of INR = 2 (no higher than 2.5.) If she re-bleeds with INR close to 2, she will need to stop Warfarin and take single agent ASA 81 mg therapy. - No bleeding as of 02/12, though INR remains <2. - continue saline nasal sprays q6hr scheduled. -Advised not to pick her nose or blow her nose-daughter reports patient tends to pick her nose -f/u with ENT in 1-2 weeks as outpt (2) Chronic atrial fibrillation: Patient has chronic AV block with pacer. - Continue metoprolol - dose was decreased to 50 mg BID during this admission (previously on 100 mg BID at home) for hypotension on admission - Restarted warfarin on 02/04 at lower dose than prior - increased to 3 mg PO daily on 02/08, will continue this dose. - INR was 1.8 on the morning of discharge; monitor INR in 2 days with goal ~2.0 (Not to exceed 2.5) (3) H/O aortic valve replacement: Had TAVR bioprosthetic valve put in at [place] in 09/2015 with an embolic stroke afterward. - Plavix was d/c'ed due to bleeding about a month ago; would continue Coumadin only and no antiplatelet drug given the recurrent severe epistaxis. - Continue statin as prescribed. (4) Hypertension: Blood pressures well controlled - Continue beta-inocencia (at decreased dose), Imdur and Losartan. - Continue home Lasix 20 mg qAM. (5) Diabetes: A1c this admission was 6.7%. -Held her home Humalog. -Continue Accu-Cheks ac/hs with SSI coverage. - Blood glucose has been well controlled. - Started Lantus 10 units daily and would continue this upon discharge. 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 - Baseline hgb is 13-14 (as recently as 12/2018). - Received IV iron x 1 dose to help replete iron stores lost from bleeding. - Monitor CBC again in 1 week Her hemoglobin has been very stable for many days in the 9-10 range (7) Hyperlipidemia: - Continue atorvastatin 10 mg PO qhs. (8) DVT prophylaxis: Warfarin Dispo: Discharge to SNF at [facility] Total Time Total Time Spent Total Time Spent (In Minutes): Greater than 30 minutes Total Time Includes: Examination of the Patient, Discharge Planning and Medication Reconciliation Discharge Plan Discharge Items Patient Disposition: Transfer [facility] Reason For Visit: EPISTAXIS, CHRONIC ANTICOAGULATION Discharge Diagnosis: Epistaxis, acute blood loss anemia Condition: Good Discharge Goals: Decrease discomfort, Diagnostic testing, Learn about illness and Therapeutic intervention Activity: As commented below Lifting: Gradually increase as tolerated Bathing: No limitations Exercise/Sports: Gradually increase as tolerated Non-emergency contact: Primary Care Provider and Surgeon Call non-emergency contact if: you have any medication questions and your symptoms worsen Follow-up/Referrals: Paresh Marino PA-C [Primary Care Provider] - Maris Reina MD [Surgeon] - Diet: Low Sodium (2gm) Addtl Provider Instructions: Ms. Mitchell was admitted for severe epistaxis and blood loss anemia. Her coumadin was held and then gently restarted. INR goal is 2.0-2.5. Please check INR in 1-2 days. Please check a CBC in 1 week. Please follow up with ENT within 1-2 weeks. Prescriptions: New acetaminophen [Mapap (acetaminophen)] 325 mg Tablet 650 mg PO Q4H PRN (Reason: pain) Qty: 30 RF: 0 warfarin [Coumadin] 3 mg Tablet 3 mg PO DAILY@1600 Qty: 30 RF: 0 metoprolol tartrate 50 mg Tablet 50 mg PO BID Qty: 60 RF: 0 sodium chloride [Saline Mist] 0.65 % Aerosol,[place] 2 sprays NA Q6H Qty: 15 RF: 0 docusate sodium 100 mg Capsule 100 mg PO BID Qty: 60 RF: 0 polyethylene glycol 3350 [Miralax] 17 gram Powder In Packet 17 g PO DAILY Qty: 30 RF: 0 Lantus Solostar U-100 Insulin 100 unit/mL (3 mL) Insulin Pen 10 unit SC DAILY Qty: 3 RF: 0 Continued atorvastatin 10 mg Tablet 10 mg PO QPM RF: 0 fluorometholone 0.25 % Drops,Suspension 1 drp OPHTHALMIC (EYE) QAM RF: 0 isosorbide mononitrate 30 mg Tablet Extended Release 24 Hr 30 mg PO QAM RF: 0 losartan 25 mg Tablet 25 mg PO QAM RF: 0 furosemide [Lasix] 20 mg Tablet 20 mg PO QAM RF: 0 cholecalciferol (vitamin D3) [Vitamin D3] 5,000 unit Tablet 5,000 unit PO QAM RF: 0 Caltrate 600 + D 600 mg (1,500 mg)-800 unit Tablet,Chewable 1 tab PO QAM RF: 0 Discontinued aspirin 81 mg Tablet,Delayed Release (Dr/Ec) 81 mg PO DAILY RF: 0 Lantus U-100 Insulin 100 unit/mL Solution 26 unit SUBCUT QPM RF: 0 warfarin 2.5 mg Tablet 2.5 mg PO .THU///THU RF: 0 clopidogrel [Plavix] 75 mg Tablet 75 mg PO QAM RF: 0 warfarin 5 mg Tablet 5 mg PO .MON/THU/FRI RF: 0 Humalog Mix 50-50 Insuln U-100 100 unit/mL (50-50) Suspension 18 unit SUBCUT QAM RF: 0 Humalog Mix 50-50 Insuln U-100 100 unit/mL (50-50) Suspension 14 unit SUBCUT QPM RF: 0 metoprolol tartrate [Lopressor] 100 mg Tablet 100 mg PO BID RF: 0 Stand-Alone Forms: [facility] Discharge Orders: Discharge Order (Routine); Ordered 02/12/19 Ordered By: Fransisca Tang Skilled Items Patient informed of condition?: Yes DNR: No Discharge Level of Care: Skilled Communicable Disease: No Discharge Prognosis: Improving Admission Data Admit Date/Time: 01/31/19 23:19 Attending Provider: Fransisca Tnag Admit Provider: Benji Caicedo Primary Care Provider: Paresh Marino Other Providers: Charbel Gonzalez ; Jose Luis Mosqueda ; Benji Caicedo Service: Medical Other Pending Studies at Discharge: No
== END 2019-02-12 13:15 | DRG 813 ==
LOC: ED 21:28 → SUATTDRO 23:19 → 2S 23:19 → 4E 02-05 13:56

== ENCOUNTER 2019-06-06 16:59 | Inpatient (IN) ==
[2019-06-06] MEDS ORDERED: SODIUM CHLORIDE 0.9% 500 ML IV SCH (17:15)
--- NOTE | 2019-06-06 17:36 | XRay Report ---
XR chest 1V portable CLINICAL HISTORY: weakness COMPARISON STUDY: 12/16/2018 FINDINGS: The heart is borderline enlarged. 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 There is evidence for aortic valve prosthesis. The study is rotated. There is no overt failu re. There is no focal pulmonary consolidation. There is minor left basilar atelectasis.[ IMPRESSION: Rotated portable study. No evidence of lobar consolidation. No evidence of overt failure. Electronically signed by: Derrick Van M.D. 06/06/2019 5:35 PM
[2019-06-06 17:37] LABS: Basophils # (auto) 0.02 K/uL (0-0.2); Basophils % (auto) 0.3 %; Eosinophils # (auto) 0.01 K/uL (0-0.5); Eosinophils % (auto) 0.1 %; Hematocrit (blood only) 43.6 % (37-47); Hemoglobin 13.6 g/dL (12.0-16.0); Immature Granulocytes # (auto) 0.03 K/uL (0.00-0.02); Immature Granulocytes % (auto) 0.4 %; Lymphocytes # (auto) 1.89 K/uL (1.2-3.4); Lymphocytes % (auto) 24.1 %; Mean Corpuscular Hemoglobin 23.2 pg (25-34); Mean Corpuscular Hgb Conc 31.2 g/dL (32-36); Mean Corpuscular Volume 74.4 fL (80-100); Mean Platelet Volume 10.5 fL (7.4-10.4); Monocytes # (auto) 1.31 K/uL (0.11-0.59); Monocytes % (auto) 16.7 %; Neutrophils # (auto) 4.58 K/uL (1.4-6.5); Neutrophils % (auto) 58.4 %; Platelet Count 207 K/uL (130-400); RDW Coefficient of Variation 17.2 % (11.5-14.5); RDW Standard Deviation 47.3 fL (36.4-46.3); Red Blood Count 5.86 M/uL (4.2-5.4); White Blood Count 7.84 K/uL (4.8-10.8)
[2019-06-06 17:46] LABS: Oxygen Saturation VBG 79.4 %; pH VBG 7.46 (7.36-7.41)
[2019-06-06 17:47] LABS: INR 3.1 (0.9-1.1); Partial Thromboplastin Ratio 1.2; Partial Thromboplastin Time 31.9 Seconds (21.0-31.0); Prothrombin Time 28.9 Seconds (9.0-12.0)
--- NOTE | 2019-06-06 17:47 | Emergency Department Note ---
Entered by Ora Guo acting as a scribe for Lam Ramos MD History of Present Illness General Chief complaint: Altered Mental Status Stated complaint: AMS Time Seen by Provider: 06/06/19 17:02 Source: patient, family and EMS Mode of arrival: EMS Limitations: altered mental status History of Present Illness Onset (ago): hour(s) Location: head (AMS) Severity: similar to prior episodes Pain Consistency: + other (Worsening) Quality: + other (AMS) Associated symptoms: + loss of appetite and + other (Positive fatigue. Negative abdominal pain. ); no chest pain, no cough and no shortness of breath The patient is an 88 year old female with a past medical history of HTN, DM, CVA, GERD, ALL, and A-fib presenting to the Emergency Department via EMS complaining of worsening altered mental status starting today. EMS reports that the patient is a resident at [facility]. They state that the patient has lost her appetite and had been sleeping all day. They explain that the patient is arousal to stimuli but will fall back asleep if you are not actively trying to talk to her. They note that the staff at [facility] reported that the patient has not been eating or drinking and has slept all day. The patients family reports that the patient recently moved into [facility] and that she is usually able to walk around with a walker. They states that the patient had a stroke in 2016 which is responsible for her permanent right-sided weakness. They explain that the patient follows with [facility] PCP and [facility]. The patient denies chest pain, shortness of breath, headache and abdominal pain. The HPI and ROS are limited due to AMS. Home Medications Home Medications Medication Instructions Recorded Confirmed Type Caltrate 600 plus D 1 tab PO QAM 06/30/18 06/06/19 History atorvastatin 10 mg PO QPM 06/30/18 06/06/19 History cholecalciferol (vitamin D3) 5,000 unit PO QAM 06/30/18 06/06/19 History [Vitamin D3] fluorometholone 1 drp OPB QAM 06/30/18 06/06/19 History furosemide [Lasix] 20 mg PO QAM 06/30/18 06/06/19 History isosorbide mononitrate 30 mg PO QAM 06/30/18 06/06/19 History losartan 25 mg PO QAM 06/30/18 06/06/19 History acetaminophen [Mapap 650 mg PO Q4H PRN #30 tab MDD 3G 02/11/19 06/06/19 Rx (acetaminophen)] docusate sodium 100 mg PO BID #60 cap 02/11/19 06/06/19 Rx polyethylene glycol 3350 [Miralax] 17 g PO DAILY #30 ea 02/11/19 06/06/19 Rx sodium chloride [Saline Mist] 2 sprays NA Q6H #15 ml 02/11/19 06/06/19 Rx aspirin 81 mg PO DAILY 05/01/19 06/06/19 History insulin lispro [Humalog KwikPen 14 unit SUBCUT .JUANCARLOS MEAL 05/01/19 06/06/19 History Insulin] insulin lispro [Humalog KwikPen 18 unit SUBCUT QAM 05/01/19 06/06/19 History Insulin] Lantus Solostar U-100 Insulin 100 26 unit SC HS 90 Days #23.4 box NS 05/02/19 06/06/19 Rx unit/mL (3 mL) subcutaneous pen ascorbate calcium-bioflavonoid 1 tab PO DAILY tab 05/12/19 06/06/19 History 1,000 mg-200 mg tablet benzonatate 100 mg capsule 100 mg PO TID #90 cap 05/12/19 06/06/19 Rx folic acid 800 mcg tablet 800 mcg PO DAILY 05/12/19 06/06/19 History mineral oil oral 15 ml PO DAILY 05/12/19 06/06/19 History metoprolol succinate 100 mg PO BID 06/06/19 06/06/19 History warfarin 1.5 mg PO 4XWK 06/06/19 06/06/19 History warfarin [Coumadin] 3 mg PO 3XWK 06/06/19 06/06/19 History Allergies Allergy/AdvReac Type Severity Reaction Status Date / Time adhesive Allergy Mild IRRITATION Verified 05/12/19 13:49 FROM ECG PATCHES/ LEADS RANJEET Inhibitors Allergy Unknown COUGH Verified 05/12/19 13:49 codeine Allergy Unknown hallucinate Verified 05/12/19 13:49 s morphine Allergy Unknown FEELS HIGH Verified 05/12/19 13:49 prednisone Allergy Unknown unknown Verified 05/12/19 13:49 per daughter Past Med/Surg History Medical History Anemia (Chronic) Chronic atrial fibrillation (Chronic) CAD (coronary artery disease), [place] coronary artery (Chronic) Hyperlipidemia (Chronic) Diabetes (Chronic) Hypertension (Chronic) Systolic congestive heart failure (Chronic) ALL (acute lymphoblastic leukemia) Atrial fibrillation Bronchiolitis obliterans organizing pneumonia CKD (chronic kidney disease) stage 3, GFR 30-59 ml/min Diabetes on insulin GERD (gastroesophageal reflux disease) Hearing deficit History of pacemaker Hx of congestive heart failure Hypertension 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 Surgical History Status post corneal transplant (Chronic) Status post transcatheter aortic valve replacement (TAVR) using bioprosthesis (Chronic) H/O colonoscopy H/O: hysterectomy History of cholecystectomy Hx of aortic valve replacement 2016 - [facility] Hx of cornea transplant right and left Hx of tooth extraction Pacemaker Family History Other No pertinent family history Social History Preferred Language: Turkish Communication Ability: Effective Senior Process Analyst Required: No Beliefs That Will Affect Care: None marital status: / Current Living Situation: Family Feels Safe at Home: Yes Safety Concerns: Feels Safe At This Time Smoking Status: Never smoker Second Hand Exposure: No ; Hx Alcohol Use: No Hx Substance Use: No Review of Systems The HPI and ROS are limited due to AMS. Physical Exam Vital Signs Vital Signs - 24 hr 06/06/19 17:00 06/06/19 17:08 06/06/19 17:11 Temperature 37.2 C Temperature Source Oral Sepsis Recent Fever Within 48 Hours No Sepsis New/Unexplained Change in Mental Status No Sepsis Action Taken by Nursing No Action Required Pulse Rate 78 Pulse Rate from SpO2 Sensor Respiratory Rate 18 Blood Pressure 174/100 H Blood Pressure Mean 124 Pulse Oximetry 95 95 95 Oxygen Delivery Method Room Air Room Air Room Air 06/06/19 17:18 06/06/19 17:23 06/06/19 18:00 Temperature Temperature Source Sepsis Recent Fever Within 48 Hours Sepsis New/Unexplained Change in Mental Status Sepsis Action Taken by Nursing Pulse Rate 62 62 60 Pulse Rate from SpO2 Sensor 63 62 Respiratory Rate 26 H 28 H 27 H Blood Pressure 154/89 H 152/80 H Blood Pressure Mean 110 104 Pulse Oximetry 94 94 Oxygen Delivery Method 06/06/19 18:17 06/06/19 18:31 06/06/19 19:00 Temperature Temperature Source Sepsis Recent Fever Within 48 Hours Sepsis New/Unexplained Change in Mental Status Sepsis Action Taken by Nursing Pulse Rate 78 81 60 Pulse Rate from SpO2 Sensor 78 80 61 Respiratory Rate 20 18 28 H Blood Pressure 118/62 115/75 Blood Pressure Mean 80 88 Pulse Oximetry 99 97 95 Oxygen Delivery Method 06/06/19 19:01 06/06/19 19:11 06/06/19 19:30 Temperature Temperature Source Sepsis Recent Fever Within 48 Hours Sepsis New/Unexplained Change in Mental Status Sepsis Action Taken by Nursing Pulse Rate 60 60 70 Pulse Rate from SpO2 Sensor 60 60 Respiratory Rate 27 H 20 23 Blood Pressure 185/82 H 181/85 H 131/61 Blood Pressure Mean 116 117 84 Pulse Oximetry 93 93 Oxygen Delivery Method 06/06/19 20:00 Temperature Temperature Source Sepsis Recent Fever Within 48 Hours Sepsis New/Unexplained Change in Mental Status Sepsis Action Taken by Nursing Pulse Rate 60 Pulse Rate from SpO2 Sensor 60 Respiratory Rate 25 H Blood Pressure 179/88 H Blood Pressure Mean 118 Pulse Oximetry 98 Oxygen Delivery Method GENERAL: Patient is in no acute distress. HEENT: Pupils equal and reactive to light. No acute trauma, normocephalic atraumatic, mucous membranes moist, no nasal congestion, no scleral icterus. NECK: No stridor, no adenopathy, no meningismus, trachea is midline. LUNGS: Clear to auscultation bilaterally, no wheeze, no rhonchi, breath sounds equal. HEART: Without murmurs gallops or rubs, regular rate and rhythm. ABDOMEN: Soft, nontender, bowel sounds positive, no hernias, no peritonitis. EXTREMITIES: No cyanosis or edema, full range of motion of all the joints wi thout pain or difficulty, no signs for acute trauma. NEUROLOGIC: Somnolent. Patient seems slightly confused and has a difficult time following commands. No real drift to upper extremities. Drift to both lower extremities. SKIN: No rash, no jaundice, no diaphoresis. Course 1702: EMR reviewed. The patient has a history of A-fib and trans catheter aortic valve replacement. She is a diabetic. She takes Coumadin. 1703: The patient was evaluated in room B6, and a complete history and physical examination were performed. 1899: I updated the patient's family at this time. 1924: I discussed the patient's case with Dr. Caicedo [facility] hospitalist. He will evaluate the patient for further management. Administered Medications Atorvastatin Calcium (Lipitor) 10 mg PO QPM SEEMA Stop: 07/06/19 22:04 Last Admin: 06/06/19 23:29 Dose: 10 mg Documented by: [id number] Benzonatate (Tessalon Perle) 100 mg PO TID SEEMA Stop: 07/06/19 22:04 Last Admin: 06/06/19 23:28 Dose: 100 mg Documented by: [id number] Docusate Sodium (Colace) 100 mg PO BID SEEMA Stop: 07/06/19 22:04 Last Admin: 06/06/19 23:27 Dose: 100 mg Documented by: [id number] Insulin Aspart (Novolog Flexpen) 0 units SC ACHS SEEMA Stop: 07/06/19 22:04 Last Admin: 06/06/19 23:28 Dose: Not Given Documented by: [id number] Cosigned by: [id number] Insulin Glargine (Lantus Solostar Pen) 26 units SC HS SEEMA Stop: 07/06/19 22:04 Last Admin: 06/06/19 23:27 Dose: 26 units Documented by: [id number] Cosigned by: [id number] Metoprolol Succinate (Toprol Xl) 100 mg PO BID SEEMA Stop: 07/06/19 22:04 Last Admin: 06/06/19 23:29 Dose: 100 mg Documented by: [id number] Miscellaneous (Order Awaiting Action) 1 ea N/A QS SEEMA Stop: 07/07/19 00:00 Last Admin: 06/06/19 23:34 Dose: Not Given Documented by: [id number] Sodium Chloride (Cohoe Nasal) 2 sprays NA Q6H SEEMA Stop: 07/06/19 22:04 Last Admin: 06/06/19 23:28 Dose: 2 sprays Documented by: [id number] Discontinued Medications Sodium Chloride (Nss) 500 mls @ 999 mls/hr IV .Q31M SEEMA Stop: 06/06/19 17:45 Last Infusion: 06/06/19 18:42 Dose: 0 mls/hr Documented by: [id number] Admin: 06/06/19 18:04 Dose: 999 mls/hr Documented by: [id number] Ceftriaxone Sodium (Rocephin) 1,000 mg in 50 mls @ 100 mls/hr IV NOW STA Stop: 06/06/19 18:36 Last Infusion: 06/06/19 20:32 Dose: 0 mls/hr Documented by: [id number] Admin: 06/06/19 19:09 Dose: 100 mls/hr Documented by: [id number] Sodium Chloride (Nss 1000ml) 500 mls @ 999 mls/hr IV .Q31M ONE Stop: 06/06/19 19:11 Last Infusion: 06/06/19 20:31 Dose: 0 mls/hr Documented by: [id number] Admin: 06/06/19 19:10 Dose: 999 mls/hr Documented by: [id number] Medical Decision Making Differential Diagnosis Differentials include stroke, intracranial bleeding, sepsis, UTI, pneumonia, liver or renal failure, dehydration, electrolyte imbalance and medication reaction amongst others. Medical Records Attestation: I reviewed the patient's medical records. Home Medications Current Medication List: was personally reviewed by me Laboratory Data Attestation: I reviewed the patient's lab results. Result diagrams: 06/06/19 17:19 06/06/19 17:19 Lab Results 06/06/19 06/06/19 06/06/19 Range/Units 17:19 17:19 17:19 WBC 7.84 (4.8-10.8) K/uL RBC 5.86 H (4.2-5.4) M/uL Hgb 13.6 (12.0-16.0) g/dL Hct 43.6 (37-47) % MCV 74.4 L (80-100) fL MCH 23.2 L (25-34) pg MCHC 31.2 L (32-36) g/dL RDW Std Deviation 47.3 H (36.4-46.3) fL RDW Coeff of Debora 17.2 H (11.5-14.5) % Plt Count 207 (130-400) K/uL MPV 10.5 H (7.4-10.4) fL Immature Gran % (Auto) 0.4 % Neut % (Auto) 58.4 % Lymph % (Auto) 24.1 % [place] % (Auto) 16.7 % Eos % (Auto) 0.1 % Baso % (Auto) 0.3 % Immature Gran # (Auto) 0.03 H (0.00-0.02) K/uL Neut # (Auto) 4.58 (1.4-6.5) K/uL Lymph # (Auto) 1.89 (1.2-3.4) K/uL [place] # (Auto) 1.31 H (0.11-0.59) K/uL Eos # (Auto) 0.01 (0-0.5) K/uL Baso # (Auto) 0.02 (0-0.2) K/uL PT 28.9 H (9.0-12.0) Seconds INR 3.1 H (0.9-1.1) APTT 31.9 H (21.0-31.0) Seconds PTT Ratio 1.2 VBG pH (7.36-7.41) VBG pCO2 (38-50) mmHg VBG pO2 mmHg VBG HCO3 mmol/L VBG O2 Saturation % VBG Base Excess mEq/L Barometric Pressure mm/Hg Sodium 133 L (136-145) mmol/L Potassium 3.7 (3.5-5.1) mmol/L Chloride 97 L (98-107) mmol/L Carbon Dioxide 31 (21-32) mmol/L Anion Gap 5.0 (3-11) BUN 20 H (7-18) mg/dl Creatinine 1.15 (0.6-1.2) mg/dl Est Cr Clr Drug Dosing Not Reportable Est GFR ( Amer) 49.2 Est GFR (Non-Af Amer) 42.4 BUN/Creatinine Ratio 17.6 (10-20) Glucose 149 H (70-99) mg/dl Lactate (0.4-2.0) mmol/L Calcium 9.1 (8.5-10.1) mg/dl Magnesium 2.0 (1.8-2.4) mg/dl Total Bilirubin 0.6 (0.2-1) mg/dl AST 29 (15-37) U/L ALT 27 (12-78) U/L Alkaline Phosphatase 90 (45-117) U/L Ammonia (11-32) umol/L Troponin I 0.038 (0-0.045) ng/ml Total Protein 7.8 (6.4-8.2) gm/dl Albumin 3.1 L (3.4-5.0) gm/dl Globulin 4.7 H (2.5-4.0) gm/dl Albumin/Globulin Ratio 0.7 L (0.9-2) TSH 0.677 (0.300-4.500) uIu/ml Urine Color Urine Appearance (Clear) Urine pH (4.5-7.5) Ur Specific [place] (1.000-1.030) Urine Protein (Negative) Urine Glucose (UA) (Negative) Urine Ketones (Negative) Urine Blood (Negative) Urine Nitrite (Negative) Urine Bilirubin (Negative) Urine Urobilinogen (Negative) Ur Leukocyte Esterase (Negative) Urine WBC (Auto) (0-5) /hpf Urine RBC (Auto) (0-4) /hpf U Hyaline Cast (Auto) (0-5) /lpf U Epithel Cells (Auto) (0-5) /lpf Urine Bacteria (Auto) (Negative) Urine Opiates Screen (Neg) Ur Methadone, Qual (Neg) Urine Barbiturates (Neg) Ur Phencyclidine (PCP) (Neg) U Amphetamin/Meth Scrn (Neg) MDMA (Ecstasy) Screen (Neg) U Benzodiazepines Scrn (Neg) Ur Cocaine Metabolite (Neg) U Marijuana (THC) Screen (Neg) 06/06/19 06/06/19 06/06/19 Range/Units 17:19 17:28 17:28 WBC (4.8-10.8) K/uL RBC (4.2-5.4) M/uL Hgb (12.0-16.0) g/dL Hct (37-47) % MCV (80-100) fL MCH (25-34) pg MCHC (32-36) g/dL RDW Std Deviation (36.4-46.3) fL RDW Coeff of Debora (11.5-14.5) % Plt Count (130-400) K/uL MPV (7.4-10.4) fL Immature Gran % (Auto) % Neut % (Auto) % Lymph % (Auto) % [place] % (Auto) % Eos % (Auto) % Baso % (Auto) % Immature Gran # (Auto) (0.00-0.02) K/uL Neut # (Auto) (1.4-6.5) K/uL Lymph # (Auto) (1.2-3.4) K/uL [place] # (Auto) (0.11-0.59) K/uL Eos # (Auto) (0-0.5) K/uL Baso # (Auto) (0-0.2) K/uL PT (9.0-12.0) Seconds INR (0.9-1.1) APTT (21.0-31.0) Seconds PTT Ratio VBG pH 7.46 H (7.36-7.41) VBG pCO2 48 (38-50) mmHg VBG pO2 43 mmHg VBG HCO3 33 mmol/L VBG O2 Saturation 79.4 % VBG Base Excess 8.0 mEq/L Barometric Pressure 731.7 mm/Hg Sodium (136-145) mmol/L Potassium (3.5-5.1) mmol/L Chloride (98-107) mmol/L Carbon Dioxide (21-32) mmol/L Anion Gap (3-11) BUN (7-18) mg/dl Creatinine (0.6-1.2) mg/dl Est Cr Clr Drug Dosing Est GFR ( Amer) Est GFR (Non-Af Amer) BUN/Creatinine Ratio (10-20) Glucose (70-99) mg/dl Lactate 1.3 (0.4-2.0) mmol/L Calcium (8.5-10.1) mg/dl Magnesium (1.8-2.4) mg/dl Total Bilirubin (0.2-1) mg/dl AST (15-37) U/L ALT (12-78) U/L Alkaline Phosphatase (45-117) U/L Ammonia 23.0 (11-32) umol/L Troponin I (0-0.045) ng/ml Total Protein (6.4-8.2) gm/dl Albumin (3.4-5.0) gm/dl Globulin (2.5-4.0) gm/dl Albumin/Globulin Ratio (0.9-2) TSH (0.300-4.500) uIu/ml Urine Color Urine Appearance (Clear) Urine pH (4.5-7.5) Ur Specific [place] (1.000-1.030) Urine Protein (Negative) Urine Glucose (UA) (Negative) Urine Ketones (Negative) Urine Blood (Negative) Urine Nitrite (Negative) Urine Bilirubin (Negative) Urine Urobilinogen (Negative) Ur Leukocyte Esterase (Negative) Urine WBC (Auto) (0-5) /hpf Urine RBC (Auto) (0-4) /hpf U Hyaline Cast (Auto) (0-5) /lpf U Epithel Cells (Auto) (0-5) /lpf Urine Bacteria (Auto) (Negative) Urine Opiates Screen (Neg) Ur Methadone, Qual (Neg) Urine Barbiturates (Neg) Ur Phencyclidine (PCP) (Neg) U Amphetamin/Meth Scrn (Neg) MDMA (Ecstasy) Screen (Neg) U Benzodiazepines Scrn (Neg) Ur Cocaine Metabolite (Neg) U Marijuana (THC) Screen (Neg) 06/06/19 06/06/19 Range/Units 17:40 17:40 WBC (4.8-10.8) K/uL RBC (4.2-5.4) M/uL Hgb (12.0-16.0) g/dL Hct (37-47) % MCV (80-100) fL MCH (25-34) pg MCHC (32-36) g/dL RDW Std Deviation (36.4-46.3) fL RDW Coeff of Debora (11.5-14.5) % Plt Count (130-400) K/uL MPV (7.4-10.4) fL Immature Gran % (Auto) % Neut % (Auto) % Lymph % (Auto) % [place] % (Auto) % Eos % (Auto) % Baso % (Auto) % Immature Gran # (Auto) (0.00-0.02) K/uL Neut # (Auto) (1.4-6.5) K/uL Lymph # (Auto) (1.2-3.4) K/uL [place] # (Auto) (0.11-0.59) K/uL Eos # (Auto) (0-0.5) K/uL Baso # (Auto) (0-0.2) K/uL PT (9.0-12.0) Seconds INR (0.9-1.1) APTT (21.0-31.0) Seconds PTT Ratio VBG pH (7.36-7.41) VBG pCO2 (38-50) mmHg VBG pO2 mmHg VBG HCO3 mmol/L VBG O2 Saturation % VBG Base Excess mEq/L Barometric Pressure mm/Hg Sodium (136-145) mmol/L Potassium (3.5-5.1) mmol/L Chloride (98-107) mmol/L Carbon Dioxide (21-32) mmol/L Anion Gap (3-11) BUN (7-18) mg/dl Creatinine (0.6-1.2) mg/dl Est Cr Clr Drug Dosing Est GFR ( Amer) Est GFR (Non-Af Amer) BUN/Creatinine Ratio (10-20) Glucose (70-99) mg/dl Lactate (0.4-2.0) mmol/L Calcium (8.5-10.1) mg/dl Magnesium (1.8-2.4) mg/dl Total Bilirubin (0.2-1) mg/dl AST (15-37) U/L ALT (12-78) U/L Alkaline Phosphatase (45-117) U/L Ammonia (11-32) umol/L Troponin I (0-0.045) ng/ml Total Protein (6.4-8.2) gm/dl Albumin (3.4-5.0) gm/dl Globulin (2.5-4.0) gm/dl Albumin/Globulin Ratio (0.9-2) TSH (0.300-4.500) uIu/ml Urine Color Yellow Urine Appearance Cloudy A (Clear) Urine pH 7.0 (4.5-7.5) Ur Specific [place] 1.012 (1.000-1.030) Urine Protein 1+ H (Negative) Urine Glucose (UA) Negative (Negative) Urine Ketones Negative (Negative) Urine Blood 1+ H (Negative) Urine Nitrite Negative (Negative) Urine Bilirubin Negative (Negative) Urine Urobilinogen Negative (Negative) Ur Leukocyte Esterase 2+ H (Negative) Urine WBC (Auto) >30 H (0-5) /hpf Urine RBC (Auto) 5-10 H (0-4) /hpf U Hyaline Cast (Auto) 1-5 (0-5) /lpf U Epithel Cells (Auto) 0-5 (0-5) /lpf Urine Bacteria (Auto) 4+ H (Negative) Urine Opiates Screen Neg (Neg) Ur Methadone, Qual Neg (Neg) Urine Barbiturates Neg (Neg) Ur Phencyclidine (PCP) Neg (Neg) U Amphetamin/Meth Scrn Neg (Neg) MDMA (Ecstasy) Screen Neg (Neg) U Benzodiazepines Scrn Neg (Neg) Ur Cocaine Metabolite Neg (Neg) U Marijuana (THC) Screen Neg (Neg) Imaging Data Radiologist's Impression: Radiology results as stated below per my review and the radiologist's interpretation: CT head/brain wo con CLINICAL HISTORY: 88 years-old Female presenting with confusion. TECHNIQUE: Multidetector CT imaging of the head was performed without the use of intravenous contrast. IV contrast: None. One or more dose lowering techniques were used consistent with the principles of ALARA (as low as reasonably achievable), including automatic exposure control, mA or kV adjustment to individual patient size, and/or use of iterative reconstruction. COMPARISON: 03/27/2015. CT DOSE (mGy.cm): The estimated cumulative dose is 614.27 mGy.cm. FINDINGS: Bracelet And Brooch Maker topogram: Unremarkable. Proportional ventricular and sulcal prominence, likely age-related parenchymal volume loss. No hemorrhage. Periventricular and subcortical white matter hypoattenuation, nonspecific but likely indicative of chronic small vessel ischemic change. No acute territorial infarct. No mass effect or midline shift. No extra-axial fluid collection. Paranasal sinuses and mastoid air cells clear. Calvarium intact. IMPRESSION: 1. Chronic small vessel ischemic change. No acute intracranial abnormality. Electronically signed by: Alex Savage M.D. 06/06/2019 6:36 PM XR chest 1V portable CLINICAL HISTORY: weakness COMPARISON STUDY: 12/16/2018 FINDINGS: The heart is borderline enlarged. 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 There is evidence for aortic valve prosthesis. The study is rotated. There is no overt failure. There is no focal pulmonary consolidation. There is minor left basilar atelectasis.[ IMPRESSION: Rotated portable study. No evidence of lobar consolidation. No evidence of overt failure. Electronically signed by: Derrick Van M.D. 06/06/2019 5:35 PM ECG Data Attestation: I personally reviewed and interpreted this ECG as follows: Indication: altered mental status Rate (beats per minute): 61 Rhythm: other (Ventricular paced. ) Findings: + other (QTC 549. Significant artifact. ); no ST elevation and no ectopy Blood Pressure Blood Pressure Findings: Elevated blood pressure Blood Pressure Disposition: further management by hospitalist MDM Narrative There is no leukocytosis or concerning anemia. INR is elevated consistent with someone using Coumadin. VBG does not show any significant acidosis. There was no CO2 retention. Renal panel testing does not show any significant electrolyte abnormality or kidney failure. Lactic acid level was not elevated making sepsis less likely. There was no worrisome liver enzyme elevation. The patient appeared to be in a euthyroid state. Ammonia level returned normal. EKG shows a paced rhythm, no acute ischemia. Cardiac enzyme testing x1 is not consistent with acute cardiac injury. Chest x-ray shows some chronic findings, no acute pneumonia, no CHF. Urinalysis is consistent with infection. Urine culture and blood cultures are pending. Urine tox is negative. Brain CT shows no acute bleed or mass-effect. On exam, the patient was somnolent, she had no obvious focal motor deficit. She was confused. The patient received IV saline, she received 2/500 cc saline boluses. She was given IV ceftriaxone for the UTI. I suspect the change in mental status and weakness and lack of appetite are all from the UTI. Given her mental status issues, I do think a hospital stay is warranted. I spoke to the patient, her family and case management. The on-call hospitalist was consulted. Impression & Plan Change in mental status, Weakness, Dehydration, UTI (urinary tract infection) Discharge Plan Visit Data *Final* Discharge Date/Time: 06/06/19 21:46 Chief Complaint: Altered Mental Status Stated Complaint: AMS ED Provider: Lam Ramos Discharge Problem: Change in mental status, Weakness, Dehydration, UTI (urinary tract infection) Patient Disposition: Admitted As Inpatient Discharge Instructions Interventions: ED Discharge Assessment Last Done: 06/06/19 21:46 Discharge Problem: Change in mental status Qualifiers: Altered mental status type: unspecified Qualified Code(s): R41.82 - Altered mental status, unspecified UTI (urinary tract infection) Qualifiers: Urinary tract infection type: site unspecified Hematuria presence: with hematuria Qualified Code(s): N39.0 - Urinary tract infection, site not specified The scribe's documentation has been prepared under my direction and personally reviewed by me in its entirety. I confirm that the note above accurately reflects all work, treatment, procedures, and medical decision making performed by me.
[2019-06-06 17:58] LABS: Appearance Urine Cloudy (Clear); Bacteria Urine Automated 4+ (Negative); Bilirubin Urine Negative (Negative); Blood Urine 1+ (Negative); Color Urine Yellow; Epithelial Cell Urine Auto 0-5 /lpf (0-5); Glucose Urine UA Negative (Negative); Ketones Urine Negative (Negative); Leukocyte Esterase Urine 2+ (Negative); Nitrite Urine Negative (Negative); Protein Urine 1+ (Negative); Specific Gravity Urine 1.012 (1.000-1.030); Urobilinogen Urine Negative (Negative); WBC Urine Automated >30 /hpf (0-5)
[2019-06-06 18:01] LABS: Alanine Aminotransferase 27 U/L (12-78); Albumin Level 3.1 gm/dl (3.4-5.0); Aspartate Aminotransferase 29 U/L (15-37); BUN Creatinine Ratio 17.6 (10-20); Blood Urea Nitrogen 20 mg/dl (7-18); Calcium 9.1 mg/dl (8.5-10.1); Carbon Dioxide 31 mmol/L (21-32); Chloride 97 mmol/L (98-107); Est GFR (African American) 49.2; Est GFR (Non-African American) 42.4; Glucose 149 mg/dl (70-99); Potassium 3.7 mmol/L (3.5-5.1); Sodium 133 mmol/L (136-145)
[2019-06-06] MEDS ORDERED: cefTRIAXone SODIUM 1,000 MG/50 ML BAG IV STA (18:07)
[2019-06-06 18:13] LABS: Albumin Globulin Ratio 0.7 (0.9-2); Alkaline Phosphatase 90 U/L (45-117); Bilirubin,Total 0.6 mg/dl (0.2-1); Globulin 4.7 gm/dl (2.5-4.0); Thyroid Stimulating Hormone 0.677 uIu/ml (0.300-4.500); Total Protein 7.8 gm/dl (6.4-8.2); Troponin I 0.038 ng/ml (0-0.045)
[2019-06-06 18:24] LABS: Amphetamines+Metham, Urine Neg (Neg); Barbiturates, Urine Neg (Neg); Benzodiazepine, Urine Neg (Neg); Cocaine, Urine Neg (Neg); MDMA (Ecstacy), Urine Neg (Neg); Methadone, Urine Neg (Neg); Opiate, Urine Neg (Neg); Phencyclidine, Urine Neg (Neg)
--- NOTE | 2019-06-06 18:38 | CT Scan Report ---
CT head/brain wo con CLINICAL HISTORY: 88 years-old Female presenting with confusion. TECHNIQUE: Multidetector CT imaging of the head was performed without the use of intravenous contrast . IV contrast: None. One or more dose lowering techniques were used consistent with the principles of ALARA (as low as reasonably achievable), including automatic exposure control, mA or kV adjustment t o individual patient size, and/or use of iterative reconstruction. COMPARISON: 03/27/2015. CT DOSE (mGy.cm): The estimated cumulative dose is 614.27 mGy.cm. FINDINGS: Tomato Pulper Operator topogram: Unremarkable. Proportional ventricular and sulcal prominence, likely age-related parenchymal volume loss. No hemorr concepcion. Periventricular and subcortical white matter hypoattenuation, nonspecific but likely indicative of chronic small vessel ischemic change. No acute territorial infarct. No mass effect or midline rosa ft. No extra-axial fluid collection. Paranasal sinuses and mastoid air cells clear. Calvarium intact. IMPRESSION: 1. Chronic small vessel ischemic change. No acute intracranial abnormality. Electronically signed by: Alex Savage M.D. 06/06/2019 6:36 PM
[2019-06-06] MEDS ORDERED: SODIUM CHLORIDE 0.9% 1000ML 500 ML IV ONE (18:41)
--- NOTE | 2019-06-06 20:34 | History & Physical Report ---
Date of Service June 06, 2019 Assessment & Plan (1) Change in mental status: This is an 88-year-old female resident of [place] who presents to the ER due to several days of somnolence and found to have a UTI. Past medical history is significant for a LL, atrial fibrillation, CKD stage III, insulin-dependent diabetes type 2, GERD, pacemaker, hypertension, status post aortic valve replacement in 2016. Daughter provides much of the history as patient is sleepy and is also mild to moderate demented at baseline. States she has been sleeping more than regularly the last several days, especially today. Also notes urinary incontinence for the last few days which is not her baseline either. Cannot endorse other signs or symptoms of infection like cough or chest pain, does not note any focal weakness although patient does have history of a stroke in 2016 with residual weakness on the right side. 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 ED course: Given 1 L normal saline bolus, Rocephin. Assessment: Change in mental status due to unknown etiology -CBC unremarkable, hemoglobin hematocrit 13.6/43.6. No leukocytosis. Coagulation reveals supratherapeutic INR at 3.1. VBG unremarkable. CHEM profile shows very mild hyponatremia, no anion gap, creatinine at baseline, glucose 149, lactate -1.3, normal LFTs, normal ammonia level. Detectable troponin but within normal limits. TSH 0.6. Urinalysis shows cloudy, 1+ protein, 1+ blood, 2+ leukocyte esterase. Is negative for nitrates. Urine toxicology negative for any drugs. Chest x-ray nonacute, no evidence of pneumonia, head CT nonacute. Chronic vessel ischemic changes. -HPI is very limited from somnolent and baseline demented patient. When I examined her at the bedside daughter corroborates that her memory is about at her baseline. Is significantly more somnolent than usual. -Also notes urinary incontinence for the last few days which is not her baseline either. Plan: -Observe on med telemetry -Rocephin IV -Await urine and blood cultures -PT OT once more awake, patient is a resident of [facility] FEN/GI: Type II diabetic diet, received 1 L normal saline bolus in the ED. Judicious with fluids given history of CHF. DVT ppx: Supra therapeutic on Coumadin, INR 3.1. CODE STATUS: DNR/DNI as discussed with patient's POA and daughter Gunjan. Patient does have a pacemaker. DISPO: Med telemetry, awaiting cultures. (2) Weakness: (3) Dehydration: (4) UTI (urinary tract infection): (5) Anemia: (6) Chronic atrial fibrillation: On chronic Coumadin. Presents with supratherapeutic INR 3.1. Will hold tonight's Coumadin. Follow INRs. Goal 2.0-2.5. -(Recent past medical history of severe epistaxis in January of this year, at that time her Plavix was stopped for that reason.) (7) Status post transcatheter aortic valve replacement (TAVR) using bioprosthesis: (8) CAD (coronary artery disease), [place] coronary artery: Continue home baby aspirin (9) Hyperlipidemia: Continue home statin. (10) Diabetes: Insulin diabetic. Continue home basal dosing. Insulin sliding scale orders placed. Last A1c in January was less than 7. (11) Hypertension: Continue home metoprolol 100 twice daily, losartan 25 every morning, home Imdur. Follow BMP. (12) Systolic congestive heart failure: Appears euvolemic on my exam. If not a little dry. No acute issues. Will hold tomorrow's morning Lasix, okay to resume if taking p.o. more tomorrow. (13) Status post corneal transplant: Continue home fluorometholone drops every morning History of Present Illness Chief Complaint: Somnolence for several days, UTI Primary Care Provider: JOSELIN REYES TOPEKA This is an 88-year-old female resident of [place] who presents to the ER due to several days of somnolence and found to have a UTI. Past medical history is significant for a LL, atrial fibrillation, CKD stage III, insulin-dependent diabetes type 2, GERD, pacemaker, hypertension, status post aortic valve replacement in 2016. Daughter provides much of the history as patient is sleepy and is also mild to moderate demented at baseline. States she has been sleeping more than regularly the last several days, especially today. Also notes urinary incontinence for the last few days which is not her baseline either. Cannot endorse other signs or symptoms of infection like cough or chest pain, does not note any focal weakness although patient does have history of a stroke in 2016 with residual weakness on the right side. 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 ED course: Given 1 L normal saline bolus, Rocephin. Allergies Allergy/AdvReac Type Severity Reaction Status Date / Time adhesive Allergy Mild IRRITATION Verified 05/12/19 13:49 FROM ECG PATCHES/ LEADS RANJEET Inhibitors Allergy Unknown COUGH Verified 05/12/19 13:49 codeine Allergy Unknown hallucinate Verified 05/12/19 13:49 s morphine Allergy Unknown FEELS HIGH Verified 05/12/19 13:49 prednisone Allergy Unknown unknown Verified 05/12/19 13:49 per daughter Home Medications Home Medications Medication Instructions Recorded Confirmed Type Caltrate 600 plus D 1 tab PO QAM 06/30/18 06/06/19 History atorvastatin 10 mg PO QPM 06/30/18 06/06/19 History cholecalciferol (vitamin D3) 5,000 unit PO QAM 06/30/18 06/06/19 History [Vitamin D3] fluorometholone 1 drp OPB QAM 06/30/18 06/06/19 History furosemide [Lasix] 20 mg PO QAM 06/30/18 06/06/19 History isosorbide mononitrate 30 mg PO QAM 06/30/18 06/06/19 History losartan 25 mg PO QAM 06/30/18 06/06/19 History acetaminophen [Mapap 650 mg PO Q4H PRN #30 tab MDD 3G 02/11/19 06/06/19 Rx (acetaminophen)] docusate sodium 100 mg PO BID #60 cap 02/11/19 06/06/19 Rx polyethylene glycol 3350 [Miralax] 17 g PO DAILY #30 ea 02/11/19 06/06/19 Rx sodium chloride [Saline Mist] 2 sprays NA Q6H #15 ml 02/11/19 06/06/19 Rx aspirin 81 mg PO DAILY 05/01/19 06/06/19 History insulin lispro [Humalog KwikPen 14 unit SUBCUT .JUANCARLOS MEAL 05/01/19 06/06/19 History Insulin] insulin lispro [Humalog KwikPen 18 unit SUBCUT QAM 05/01/19 06/06/19 History Insulin] Lantus Solostar U-100 Insulin 100 26 unit SC HS 90 Days #23.4 box NS 05/02/19 06/06/19 Rx unit/mL (3 mL) subcutaneous pen ascorbate calcium-bioflavonoid 1 tab PO DAILY tab 05/12/19 06/06/19 History 1,000 mg-200 mg tablet benzonatate 100 mg capsule 100 mg PO TID #90 cap 05/12/19 06/06/19 Rx folic acid 800 mcg tablet 800 mcg PO DAILY 05/12/19 06/06/19 History mineral oil oral 15 ml PO DAILY 05/12/19 06/06/19 History metoprolol succinate 100 mg PO BID 06/06/19 06/06/19 History warfarin 1.5 mg PO 4XWK 06/06/19 06/06/19 History warfarin [Coumadin] 3 mg PO 3XWK 06/06/19 06/06/19 History Past Med/Surg History Medical History Anemia (Chronic) Chronic atrial fibrillation (Chronic) CAD (coronary artery disease), [place] coronary artery (Chronic) Hyperlipidemia (Chronic) Diabetes (Chronic) Hypertension (Chronic) Systolic congestive heart failure (Chronic) ALL (acute lymphoblastic leukemia) Atrial fibrillation Bronchiolitis obliterans organizing pneumonia CKD (chronic kidney disease) stage 3, GFR 30-59 ml/min Diabetes on insulin GERD (gastroesophageal reflux disease) Hearing deficit History of pacemaker Hx of congestive heart failure Hypertension 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 Surgical History Status post corneal transplant (Chronic) Status post transcatheter aortic valve replacement (TAVR) using bioprosthesis (Chronic) H/O colonoscopy H/O: hysterectomy History of cholecystectomy Hx of aortic valve replacement 2016 - [facility] Hx of cornea transplant right and left Hx of tooth extraction Pacemaker Family History Other No pertinent family history Social History Preferred Language: Belarusian Communication Ability: Effective City Engineer Required: No Beliefs That Will Affect Care: None marital status: / Current Living Situation: Family Feels Safe at Home: Yes Safety Concerns: Feels Safe At This Time Smoking Status: Never smoker Second Hand Exposure: No ; Hx Alcohol Use: No Hx Substance Use: No Review of Systems Review of Systems: Patient does not endorse any pain at this time. HPI is limited given dementia and somnolence. Physical Exam Physical Exam: Vitals noted and within normal limits with the exception of mild hypertension GENERAL: Somnolent but arousable, alert to person, not to place, and not to time, nontoxic-appearing, in no distress. HENT: Normocephalic, atraumatic. Mucus membranes appear dry. EYES: Normal conjunctiva. Sclera non-icteric. EOMI. NECK: Supple. Full range of motion. No JVD. RESPIRATORY: Clear to auscultation. Normal work of breathing. CARDIAC: Regular rate, normal rhythm. Extremities warm and well perfused, 2+ radial pulses bilaterally; 2+ posterior tibialis pulses bilaterally. ABDOMEN: Soft, non-distended. No tenderness to palpation in all four quadrants. No rebound or guarding. No masses. Bowel sounds are normal. LOWER EXTREMITIES: Inspection of calves reveal equal size bilaterally. They are non-tender. No edema. No discoloration. NEURO: No gross focal motor deficits noted. Sensation in tact. CN II-XII grossly in tact. . SKIN: Rash not present. No jaundice noted. Significant lesions not present. PSYCH: Appropriate mood and affect. Cooperative. Examined while patient's daughter Gunjan at the bedside. Exam as done by Lucita Gordon MD, Human Relations Professor. Results & Data Vital Signs (Past 12 Hours) Vital Signs Temp Pulse Resp BP Pulse Ox 06/06/19 19:11 60 20 181/85 H 93 06/06/19 19:01 60 27 H 185/82 H 93 06/06/19 19:00 60 28 H 95 06/06/19 18:31 81 18 115/75 97 06/06/19 18:17 78 20 118/62 99 06/06/19 18:00 60 27 H 152/80 H 06/06/19 17:23 62 28 H 94 06/06/19 17:18 62 26 H 154/89 H 94 06/06/19 17:11 95 06/06/19 17:08 95 06/06/19 17:00 37.2 C 78 18 174/100 H 95 Laboratory Results 06/06/19 06/06/19 06/06/19 Range/Units 17:40 17:40 17:28 WBC (4.8-10.8) K/uL RBC (4.2-5.4) M/uL Hgb (12.0-16.0) g/dL Hct (37-47) % MCV (80-100) fL MCH (25-34) pg MCHC (32-36) g/dL RDW Std Deviation (36.4-46.3) fL RDW Coeff of Debora (11.5-14.5) % Plt Count (130-400) K/uL MPV (7.4-10.4) fL Immature Gran % (Auto) % Neut % (Auto) % Lymph % (Auto) % Dawson % (Auto) % Eos % (Auto) % Baso % (Auto) % Immature Gran # (Auto) (0.00-0.02) K/uL Neut # (Auto) (1.4-6.5) K/uL Lymph # (Auto) (1.2-3.4) K/uL Dawson # (Auto) (0.11-0.59) K/uL Eos # (Auto) (0-0.5) K/uL Baso # (Auto) (0-0.2) K/uL PT (9.0-12.0) Seconds INR (0.9-1.1) APTT (21.0-31.0) Seconds PTT Ratio VBG pH 7.46 H (7.36-7.41) VBG pCO2 48 (38-50) mmHg VBG pO2 43 mmHg VBG HCO3 33 mmol/L VBG O2 Saturation 79.4 % VBG Base Excess 8.0 mEq/L Barometric Pressure 731.7 mm/Hg Sodium (136-145) mmol/L Potassium (3.5-5.1) mmol/L Chloride (98-107) mmol/L Carbon Dioxide (21-32) mmol/L Anion Gap (3-11) BUN (7-18) mg/dl Creatinine (0.6-1.2) mg/dl Est Cr Clr Drug Dosing Est GFR ( Amer) Est GFR (Non-Af Amer) BUN/Creatinine Ratio (10-20) Glucose (70-99) mg/dl Lactate (0.4-2.0) mmol/L Calcium (8.5-10.1) mg/dl Magnesium (1.8-2.4) mg/dl Total Bilirubin (0.2-1) mg/dl AST (15-37) U/L ALT (12-78) U/L Alkaline Phosphatase (45-117) U/L Ammonia (11-32) umol/L Troponin I (0-0.045) ng/ml Total Protein (6.4-8.2) gm/dl Albumin (3.4-5.0) gm/dl Globulin (2.5-4.0) gm/dl Albumin/Globulin Ratio (0.9-2) TSH (0.300-4.500) uIu/ml Urine Color Yellow Urine Appearance Cloudy A (Clear) Urine pH 7.0 (4.5-7.5) Ur Specific [place] 1.012 (1.000-1.030) Urine Protein 1+ H (Negative) Urine Glucose (UA) Negative (Negative) Urine Ketones Negative (Negative) Urine Blood 1+ H (Negative) Urine Nitrite Negative (Negative) Urine Bilirubin Negative (Negative) Urine Urobilinogen Negative (Negative) Ur Leukocyte Esterase 2+ H (Negative) Urine WBC (Auto) >30 H (0-5) /hpf Urine RBC (Auto) 5-10 H (0-4) /hpf U Hyaline Cast (Auto) 1-5 (0-5) /lpf U Epithel Cells (Auto) 0-5 (0-5) /lpf Urine Bacteria (Auto) 4+ H (Negative) Urine Opiates Screen Neg (Neg) Ur Methadone, Qual Neg (Neg) Urine Barbiturates Neg (Neg) Ur Phencyclidine (PCP) Neg (Neg) U Amphetamin/Meth Scrn Neg (Neg) MDMA (Ecstasy) Screen Neg (Neg) U Benzodiazepines Scrn Neg (Neg) Ur Cocaine Metabolite Neg (Neg) U Marijuana (THC) Screen Neg (Neg) 06/06/19 06/06/19 06/06/19 Range/Units 17:28 17:19 17:19 WBC (4.8-10.8) K/uL RBC (4.2-5.4) M/uL Hgb (12.0-16.0) g/dL Hct (37-47) % MCV (80-100) fL MCH (25-34) pg MCHC (32-36) g/dL RDW Std Deviation (36.4-46.3) fL RDW Coeff of Debora (11.5-14.5) % Plt Count (130-400) K/uL MPV (7.4-10.4) fL Immature Gran % (Auto) % Neut % (Auto) % Lymph % (Auto) % Dawson % (Auto) % Eos % (Auto) % Baso % (Auto) % Immature Gran # (Auto) (0.00-0.02) K/uL Neut # (Auto) (1.4-6.5) K/uL Lymph # (Auto) (1.2-3.4) K/uL Dawson # (Auto) (0.11-0.59) K/uL Eos # (Auto) (0-0.5) K/uL Baso # (Auto) (0-0.2) K/uL PT (9.0-12.0) Seconds INR (0.9-1.1) APTT (21.0-31.0) Seconds PTT Ratio VBG pH (7.36-7.41) VBG pCO2 (38-50) mmHg VBG pO2 mmHg VBG HCO3 mmol/L VBG O2 Saturation % VBG Base Excess mEq/L Barometric Pressure mm/Hg Sodium 133 L (136-145) mmol/L Potassium 3.7 (3.5-5.1) mmol/L Chloride 97 L (98-107) mmol/L Carbon Dioxide 31 (21-32) mmol/L Anion Gap 5.0 (3-11) BUN 20 H (7-18) mg/dl Creatinine 1.15 (0.6-1.2) mg/dl Est Cr Clr Drug Dosing Not Reportable Est GFR ( Amer) 49.2 Est GFR (Non-Af Amer) 42.4 BUN/Creatinine Ratio 17.6 (10-20) Glucose 149 H (70-99) mg/dl Lactate 1.3 (0.4-2.0) mmol/L Calcium 9.1 (8.5-10.1) mg/dl Magnesium 2.0 (1.8-2.4) mg/dl Total Bilirubin 0.6 (0.2-1) mg/dl AST 29 (15-37) U/L ALT 27 (12-78) U/L Alkaline Phosphatase 90 (45-117) U/L Ammonia 23.0 (11-32) umol/L Troponin I 0.038 (0-0.045) ng/ml Total Protein 7.8 (6.4-8.2) gm/dl Albumin 3.1 L (3.4-5.0) gm/dl Globulin 4.7 H (2.5-4.0) gm/dl Albumin/Globulin Ratio 0.7 L (0.9-2) TSH 0.677 (0.300-4.500) uIu/ml Urine Color Urine Appearance (Clear) Urine pH (4.5-7.5) Ur Specific [place] (1.000-1.030) Urine Protein (Negative) Urine Glucose (UA) (Negative) Urine Ketones (Negative) Urine Blood (Negative) Urine Nitrite (Negative) Urine Bilirubin (Negative) Urine Urobilinogen (Negative) Ur Leukocyte Esterase (Negative) Urine WBC (Auto) (0-5) /hpf Urine RBC (Auto) (0-4) /hpf U Hyaline Cast (Auto) (0-5) /lpf U Epithel Cells (Auto) (0-5) /lpf Urine Bacteria (Auto) (Negative) Urine Opiates Screen (Neg) Ur Methadone, Qual (Neg) Urine Barbiturates (Neg) Ur Phencyclidine (PCP) (Neg) U Amphetamin/Meth Scrn (Neg) MDMA (Ecstasy) Screen (Neg) U Benzodiazepines Scrn (Neg) Ur Cocaine Metabolite (Neg) U Marijuana (THC) Screen (Neg) 06/06/19 06/06/19 Range/Units 17:19 17:19 WBC 7.84 (4.8-10.8) K/uL RBC 5.86 H (4.2-5.4) M/uL Hgb 13.6 (12.0-16.0) g/dL Hct 43.6 (37-47) % MCV 74.4 L (80-100) fL MCH 23.2 L (25-34) pg MCHC 31.2 L (32-36) g/dL RDW Std Deviation 47.3 H (36.4-46.3) fL RDW Coeff of Debora 17.2 H (11.5-14.5) % Plt Count 207 (130-400) K/uL MPV 10.5 H (7.4-10.4) fL Immature Gran % (Auto) 0.4 % Neut % (Auto) 58.4 % Lymph % (Auto) 24.1 % Dawson % (Auto) 16.7 % Eos % (Auto) 0.1 % Baso % (Auto) 0.3 % Immature Gran # (Auto) 0.03 H (0.00-0.02) K/uL Neut # (Auto) 4.58 (1.4-6.5) K/uL Lymph # (Auto) 1.89 (1.2-3.4) K/uL Dawson # (Auto) 1.31 H (0.11-0.59) K/uL Eos # (Auto) 0.01 (0-0.5) K/uL Baso # (Auto) 0.02 (0-0.2) K/uL PT 28.9 H (9.0-12.0) Seconds INR 3.1 H (0.9-1.1) APTT 31.9 H (21.0-31.0) Seconds PTT Ratio 1.2 VBG pH (7.36-7.41) VBG pCO2 (38-50) mmHg VBG pO2 mmHg VBG HCO3 mmol/L VBG O2 Saturation % VBG Base Excess mEq/L Barometric Pressure mm/Hg Sodium (136-145) mmol/L Potassium (3.5-5.1) mmol/L Chloride (98-107) mmol/L Carbon Dioxide (21-32) mmol/L Anion Gap (3-11) BUN (7-18) mg/dl Creatinine (0.6-1.2) mg/dl Est Cr Clr Drug Dosing Est GFR ( Amer) Est GFR (Non-Af Amer) BUN/Creatinine Ratio (10-20) Glucose (70-99) mg/dl Lactate (0.4-2.0) mmol/L Calcium (8.5-10.1) mg/dl Magnesium (1.8-2.4) mg/dl Total Bilirubin (0.2-1) mg/dl AST (15-37) U/L ALT (12-78) U/L Alkaline Phosphatase (45-117) U/L Ammonia (11-32) umol/L Troponin I (0-0.045) ng/ml Total Protein (6.4-8.2) gm/dl Albumin (3.4-5.0) gm/dl Globulin (2.5-4.0) gm/dl Albumin/Globulin Ratio (0.9-2) TSH (0.300-4.500) uIu/ml Urine Color Urine Appearance (Clear) Urine pH (4.5-7.5) Ur Specific [place] (1.000-1.030) Urine Protein (Negative) Urine Glucose (UA) (Negative) Urine Ketones (Negative) Urine Blood (Negative) Urine Nitrite (Negative) Urine Bilirubin (Negative) Urine Urobilinogen (Negative) Ur Leukocyte Esterase (Negative) Urine WBC (Auto) (0-5) /hpf Urine RBC (Auto) (0-4) /hpf U Hyaline Cast (Auto) (0-5) /lpf U Epithel Cells (Auto) (0-5) /lpf Urine Bacteria (Auto) (Negative) Urine Opiates Screen (Neg) Ur Methadone, Qual (Neg) Urine Barbiturates (Neg) Ur Phencyclidine (PCP) (Neg) U Amphetamin/Meth Scrn (Neg) MDMA (Ecstasy) Screen (Neg) U Benzodiazepines Scrn (Neg) Ur Cocaine Metabolite (Neg) U Marijuana (THC) Screen (Neg) Code Status & VTE Plan VTE Prophylaxis Plan VTE Prophylaxis will be ordered: Yes Supervising Physician Co-Signing Physician Notes Attending addendum: I have physically seen this patient, have supervised the medical residents activities, and agree with the H&P unless as otherwise noted. Assessment and Plan: Change in mental status- Likely secondary to UTI. CT of head suggestive of chronic small vessel disease. Chest x-ray negative. Mild dehydration. In ED given 1 L of normal saline and ceftriaxone 1 g IV. Continue ceftriaxone 1 g IV daily. Continue gentle rehydration with normal saline. Follow urine culture and sensitivities. Follow blood cultures. Remainder of orders and notations as noted. PG Care Time/CCT Total # of Minutes Spent Total Time Spent with Patient: Total time spent is greater than 50% in coordination of care (as documented) at patient's floor/unit and/or counseling patient: Resident Activity Tracking Resident Involvement: Resident Care Provided Care Provided: Adult Hospital Medicine (1) UTI (urinary tract infection) Hematuria presence: with hematuria Urinary tract infection type: site unspecified Qualified Code(s): N39.0 - Urinary tract infection, site not specified; R31.9 - Hematuria, unspecified (2) Change in mental status Altered mental status type: unspecified Qualified Code(s): R41.82 - Altered mental status, unspecified
[2019-06-06] MEDS ORDERED: GLUCAGON FOR INJ 1 MG VIAL SQ PRN (22:05)
[2019-06-06] MEDS ORDERED: MAGNESIUM HYDROXIDE SUSP 30 ML UDC PO PRN (22:05)
[2019-06-06] MEDS ORDERED: GLUCOSE 10 TABS/TUBE PO PRN (22:05)
[2019-06-06] MEDS ORDERED: GLUCOSE 40% GEL 15 GM TUBE PO PRN (22:05)
[2019-06-06] MEDS ORDERED: ALUMINUM/MAGNESIUM SUSP 30 ML UDC PO PRN (22:05)
[2019-06-06] MEDS ORDERED: DEXTROSE 50% 50 ML SYRINGE IV PRN (22:05)
[2019-06-06] MEDS ORDERED: PATIENT'S HEIGHT AND/OR WEIGHT NEEDED SCH (22:25)
[2019-06-06] MEDS: INSULIN GLARGINE SOLOSTAR 100 UNITS/ML 3 ML PEN SC SCH (23:27)
[2019-06-06] MEDS: DOCUSATE SODIUM 100 MG CAP PO SCH (23:27)
[2019-06-06] MEDS: INSULIN ASPART 100 UNITS/ML 3 ML PEN SC SCH (23:28)
[2019-06-06] MEDS: BENZONATATE 100 MG CAPSULE PO SCH (23:28)
[2019-06-06] MEDS: SODIUM CHLORIDE 0.65% NA SOLN 45 ML (OCEAN) SCH (23:28)
[2019-06-06] MEDS: ATORVASTATIN 10 MG TAB PO SCH (23:29)
[2019-06-06] MEDS: METOPROLOL SUCC 50MG EXT REL TAB PO SCH (23:29)
[2019-06-07] MEDS ORDERED: METOPROLOL TARTRATE 1 MG/ML VIAL IV STA (00:24)
[2019-06-07] MEDS ORDERED: HydrALAZINE HCL 20 MG/ML VIAL IV ONE (00:27)
[2019-06-07] MEDS: SODIUM CHLORIDE 0.65% NA SOLN 45 ML (OCEAN) SCH ×4 (03:49→21:07)
[2019-06-07 06:16] LABS: INR 3.1 (0.9-1.1); Prothrombin Time 29.6 Seconds (9.0-12.0)
[2019-06-07 06:38] LABS: BUN Creatinine Ratio 17.4 (10-20); Calcium 8.4 mg/dl (8.5-10.1); Creatinine Clr Calc Pharmacy 33.5 ml/min; Est GFR (Non-African American) 50.9; Potassium 3.7 mmol/L (3.5-5.1)
[2019-06-07] MEDS: CALCIUM 600MG + VIT D 400 IU TAB PO SCH (07:49)
[2019-06-07] MEDS: BENZONATATE 100 MG CAPSULE PO SCH ×3 (07:49→20:28)
[2019-06-07] MEDS: DOCUSATE SODIUM 100 MG CAP PO SCH ×2 (07:49→20:26)
[2019-06-07] MEDS: FOLIC ACID 400 MCG TAB PO SCH (07:49)
[2019-06-07] MEDS: ISOSORBIDE MONO EXTENDED REL 30 MG TABCR PO SCH (07:49)
[2019-06-07] MEDS: METOPROLOL SUCC 50MG EXT REL TAB PO SCH ×2 (07:49→20:28)
[2019-06-07] MEDS: ASPIRIN 81 MG ECTAB PO SCH (07:49)
[2019-06-07] MEDS: LOSARTAN POTASSIUM 25 MG TAB PO SCH (07:49)
[2019-06-07] MEDS: POLYETHYLENE (MIRALAX) 17 GM PACK PO SCH (07:49)
[2019-06-07] MEDS: INSULIN ASPART 100 UNITS/ML 3 ML PEN SC SCH ×4 (08:14→20:36)
[2019-06-07] MEDS ORDERED: KONDREMUL 480ML PO SCH (09:00)
[2019-06-07] MEDS ORDERED: KONDREMUL 30ML UDP PO SCH ×2 (09:00→10:35)
[2019-06-07] MEDS: KONDREMUL 480ML PO SCH (12:16)
[2019-06-07] MEDS ORDERED: WARFARIN SOD 3 MG TAB PO SCH (16:00)
--- NOTE | 2019-06-07 17:47 | Family Medicine Progress Note ---
Date of Service June 07, 2019 Assessment & Plan (1) Change in mental status: This is an 88-year-old female resident of [facility] with underlying dementia admitted on 06/06/19 for altered mental status, found to have a UTI. - UA: cloudy, neg nitrites, 2+ leuk est, 4+ bacteria; started on IV ceftriaxone; urine culture pending (probable infectious etiology) - blood cultures pending - Electrolytes WNL, LFTs WNL, VBG revealed only minimal elevation of pH to 7.46. Metabolic derangements unlikely to be etiology - Head CT showed no acute intracranial abnormality Dispo: med/tele FEN/GI: Diabetic diet DVT ppx: Supra therapeutic on Coumadin, INR 3.1. CODE STATUS: DNR/DNI as discussed with patient's POA and daughter Gunjan. (2) Weakness: Likely secondary to above infection; continue antibiotics -PT/OT tomorrow (3) UTI (urinary tract infection): -likely cause of altered mental status -plan as above (4) Chronic atrial fibrillation: - On chronic anticoagulation with coumadin. -INR 3.1 today; Goal 2.0-2.5. -hold Coumadin (5) Anemia: (6) Status post transcatheter aortic valve replacement (TAVR) using bioprosthesis: (7) CAD (coronary artery disease), [place] coronary artery: Continue home aspirin 81mg (8) Hyperlipidemia: Continue home statin. (9) Diabetes: - Continue home basal insulin dosing. - sliding scale in hospital - Last A1c in January was less than 7 (below goal) (10) Hypertension: Continue home metoprolol 100 twice daily, losartan 25 every morning, home Imdur. - Electrolytes WNL (11) Systolic congestive heart failure: (12) Status post corneal transplant: Continue home fluorometholone drops every morning Supervising Physician Co-Signing Physician Notes Patient seen and examined with Dr. Sapp. I agree with their exam findings, review of systems, assessment and plan. I have personally reviewed the lab work and imaging from today. patient pleasantly confused, some visual hallucinations she is eating well, denies any pain discussed with her daughter at the bedside, right arm hematoma present for weeks, it is actually a lot better Exam: thin elderly female, NAD, lungs CTA bilaterally, normal effort, alert, oriented to person and place and time, some confusion, easily redirected - Acute metabolic encephalopathy: due to UTI, follow up on culture, continue Rocephin - UTI: culture growing gram negative bacteria, continue on Rocephin - Elevated INR: 3.1, will hold Coumadin plan to return to [facility] Subjective Daughter present at bedside - provides hx that R forearm hematoma has been present for past 4 weeks and has gotten smaller. No acute events since admission. Little oral intake. Review of Systems Genitourinary: + urinary incontinence (per [facility] staff); no dysuria Physical Exam Physical Exam: General Appearance: well-developed, well-nourished older adult woman in no acute distress HEENT: NC/AT. Sclera anicteric. Neck: Supple. CV: RRR. S1 and S2 appreciated. No murmurs, clicks, gallops or rubs. Lungs: CTA in all lung phillips bilaterally with equal air movement. No wheezes, rales, rhonchi or crackles. Abdomen: Soft, non-tender, non-distended. Normoactive BS in all 4 quadrants. Extremities: 3 inch raised hematoma with overlaying violaceous skin on R forearm. No LE edema bilaterally. Skin: warm, dry, and intact Neuro: AAO x 3 (can state full name, knows she is in hospital, thinks year is 2019, knows month of May). No focal deficits. Psych: Lethargic. Appropriate mood and affect. Results & Data Vital Signs (Past 12 Hours) Vital Signs Temp Pulse Pulse Resp BP Pulse Ox 06/07/19 16:46 36.7 C 60 36 H 167/77 H 93 06/07/19 16:23 36.7 C 62 37 H 162/67 H 93 06/07/19 15:14 61 06/07/19 12:12 37.1 C 64 18 146/76 H 94 06/07/19 10:22 74 142/74 H 06/07/19 07:45 37.1 C 60 18 180/80 H 92 Laboratory Results 06/07/19 06/07/19 06/07/19 Range/Units 11:51 07:40 05:36 PT (9.0-12.0) Seconds INR (0.9-1.1) VBG pH (7.36-7.41) VBG pCO2 (38-50) mmHg VBG pO2 mmHg VBG HCO3 mmol/L VBG O2 Saturation % VBG Base Excess mEq/L Barometric Pressure mm/Hg Sodium 138 (136-145) mmol/L Potassium 3.7 (3.5-5.1) mmol/L Chloride 102 (98-107) mmol/L Carbon Dioxide 31 (21-32) mmol/L Anion Gap 5.0 (3-11) BUN 17 (7-18) mg/dl Creatinine 0.99 (0.6-1.2) mg/dl Est Cr Clr Drug Dosing 33.5 Est GFR ( Amer) 59.0 Est GFR (Non-Af Amer) 50.9 BUN/Creatinine Ratio 17.4 (10-20) Glucose 105 H (70-99) mg/dl POC Glucose 143 H 106 H (70-99) Lactate (0.4-2.0) mmol/L Calcium 8.4 L (8.5-10.1) mg/dl Magnesium (1.8-2.4) mg/dl Total Bilirubin (0.2-1) mg/dl AST (15-37) U/L ALT (12-78) U/L Alkaline Phosphatase (45-117) U/L Ammonia (11-32) umol/L Troponin I (0-0.045) ng/ml Total Protein (6.4-8.2) gm/dl Albumin (3.4-5.0) gm/dl Globulin (2.5-4.0) gm/dl Albumin/Globulin Ratio (0.9-2) TSH (0.300-4.500) uIu/ml Urine Color Urine Appearance (Clear) Urine pH (4.5-7.5) Ur Specific [place] (1.000-1.030) Urine Protein (Negative) Urine Glucose (UA) (Negative) Urine Ketones (Negative) Urine Blood (Negative) Urine Nitrite (Negative) Urine Bilirubin (Negative) Urine Urobilinogen (Negative) Ur Leukocyte Esterase (Negative) Urine WBC (Auto) (0-5) /hpf Urine RBC (Auto) (0-4) /hpf U Hyaline Cast (Auto) (0-5) /lpf U Epithel Cells (Auto) (0-5) /lpf Urine Bacteria (Auto) (Negative) Urine Opiates Screen (Neg) Ur Methadone, Qual (Neg) Urine Barbiturates (Neg) Ur Phencyclidine (PCP) (Neg) U Amphetamin/Meth Scrn (Neg) MDMA (Ecstasy) Screen (Neg) U Benzodiazepines Scrn (Neg) Ur Cocaine Metabolite (Neg) U Marijuana (THC) Screen (Neg) 06/07/19 06/06/19 06/06/19 Range/Units 05:36 22:32 17:40 PT 29.6 H (9.0-12.0) Seconds INR 3.1 H (0.9-1.1) VBG pH (7.36-7.41) VBG pCO2 (38-50) mmHg VBG pO2 mmHg VBG HCO3 mmol/L VBG O2 Saturation % VBG Base Excess mEq/L Barometric Pressure mm/Hg Sodium (136-145) mmol/L Potassium (3.5-5.1) mmol/L Chloride (98-107) mmol/L Carbon Dioxide (21-32) mmol/L Anion Gap (3-11) BUN (7-18) mg/dl Creatinine (0.6-1.2) mg/dl Est Cr Clr Drug Dosing Est GFR ( Amer) Est GFR (Non-Af Amer) BUN/Creatinine Ratio (10-20) Glucose (70-99) mg/dl POC Glucose 97 (70-99) Lactate (0.4-2.0) mmol/L Calcium (8.5-10.1) mg/dl Magnesium (1.8-2.4) mg/dl Total Bilirubin (0.2-1) mg/dl AST (15-37) U/L ALT (12-78) U/L Alkaline Phosphatase (45-117) U/L Ammonia (11-32) umol/L Troponin I (0-0.045) ng/ml Total Protein (6.4-8.2) gm/dl Albumin (3.4-5.0) gm/dl Globulin (2.5-4.0) gm/dl Albumin/Globulin Ratio (0.9-2) TSH (0.300-4.500) uIu/ml Urine Color Yellow Urine Appearance Cloudy A (Clear) Urine pH 7.0 (4.5-7.5) Ur Specific [place] 1.012 (1.000-1.030) Urine Protein 1+ H (Negative) Urine Glucose (UA) Negative (Negative) Urine Ketones Negative (Negative) Urine Blood 1+ H (Negative) Urine Nitrite Negative (Negative) Urine Bilirubin Negative (Negative) Urine Urobilinogen Negative (Negative) Ur Leukocyte Esterase 2+ H (Negative) Urine WBC (Auto) >30 H (0-5) /hpf Urine RBC (Auto) 5-10 H (0-4) /hpf U Hyaline Cast (Auto) 1-5 (0-5) /lpf U Epithel Cells (Auto) 0-5 (0-5) /lpf Urine Bacteria (Auto) 4+ H (Negative) Urine Opiates Screen (Neg) Ur Methadone, Qual (Neg) Urine Barbiturates (Neg) Ur Phencyclidine (PCP) (Neg) U Amphetamin/Meth Scrn (Neg) MDMA (Ecstasy) Screen (Neg) U Benzodiazepines Scrn (Neg) Ur Cocaine Metabolite (Neg) U Marijuana (THC) Screen (Neg) 06/06/19 06/06/19 06/06/19 Range/Units 17:40 17:28 17:28 PT (9.0-12.0) Seconds INR (0.9-1.1) VBG pH 7.46 H (7.36-7.41) VBG pCO2 48 (38-50) mmHg VBG pO2 43 mmHg VBG HCO3 33 mmol/L VBG O2 Saturation 79.4 % VBG Base Excess 8.0 mEq/L Barometric Pressure 731.7 mm/Hg Sodium (136-145) mmol/L Potassium (3.5-5.1) mmol/L Chloride (98-107) mmol/L Carbon Dioxide (21-32) mmol/L Anion Gap (3-11) BUN (7-18) mg/dl Creatinine (0.6-1.2) mg/dl Est Cr Clr Drug Dosing Est GFR ( Amer) Est GFR (Non-Af Amer) BUN/Creatinine Ratio (10-20) Glucose (70-99) mg/dl POC Glucose (70-99) Lactate 1.3 (0.4-2.0) mmol/L Calcium (8.5-10.1) mg/dl Magnesium (1.8-2.4) mg/dl Total Bilirubin (0.2-1) mg/dl AST (15-37) U/L ALT (12-78) U/L Alkaline Phosphatase (45-117) U/L Ammonia (11-32) umol/L Troponin I (0-0.045) ng/ml Total Protein (6.4-8.2) gm/dl Albumin (3.4-5.0) gm/dl Globulin (2.5-4.0) gm/dl Albumin/Globulin Ratio (0.9-2) TSH (0.300-4.500) uIu/ml Urine Color Urine Appearance (Clear) Urine pH (4.5-7.5) Ur Specific [place] (1.000-1.030) Urine Protein (Negative) Urine Glucose (UA) (Negative) Urine Ketones (Negative) Urine Blood (Negative) Urine Nitrite (Negative) Urine Bilirubin (Negative) Urine Urobilinogen (Negative) Ur Leukocyte Esterase (Negative) Urine WBC (Auto) (0-5) /hpf Urine RBC (Auto) (0-4) /hpf U Hyaline Cast (Auto) (0-5) /lpf U Epithel Cells (Auto) (0-5) /lpf Urine Bacteria (Auto) (Negative) Urine Opiates Screen Neg (Neg) Ur Methadone, Qual Neg (Neg) Urine Barbiturates Neg (Neg) Ur Phencyclidine (PCP) Neg (Neg) U Amphetamin/Meth Scrn Neg (Neg) MDMA (Ecstasy) Screen Neg (Neg) U Benzodiazepines Scrn Neg (Neg) Ur Cocaine Metabolite Neg (Neg) U Marijuana (THC) Screen Neg (Neg) 06/06/19 06/06/19 Range/Units 17:19 17:19 PT (9.0-12.0) Seconds INR (0.9-1.1) VBG pH (7.36-7.41) VBG pCO2 (38-50) mmHg VBG pO2 mmHg VBG HCO3 mmol/L VBG O2 Saturation % VBG Base Excess mEq/L Barometric Pressure mm/Hg Sodium 133 L (136-145) mmol/L Potassium 3.7 (3.5-5.1) mmol/L Chloride 97 L (98-107) mmol/L Carbon Dioxide 31 (21-32) mmol/L Anion Gap 5.0 (3-11) BUN 20 H (7-18) mg/dl Creatinine 1.15 (0.6-1.2) mg/dl Est Cr Clr Drug Dosing Not Reportable Est GFR ( Amer) 49.2 Est GFR (Non-Af Amer) 42.4 BUN/Creatinine Ratio 17.6 (10-20) Glucose 149 H (70-99) mg/dl POC Glucose (70-99) Lactate (0.4-2.0) mmol/L Calcium 9.1 (8.5-10.1) mg/dl Magnesium 2.0 (1.8-2.4) mg/dl Total Bilirubin 0.6 (0.2-1) mg/dl AST 29 (15-37) U/L ALT 27 (12-78) U/L Alkaline Phosphatase 90 (45-117) U/L Ammonia 23.0 (11-32) umol/L Troponin I 0.038 (0-0.045) ng/ml Total Protein 7.8 (6.4-8.2) gm/dl Albumin 3.1 L (3.4-5.0) gm/dl Globulin 4.7 H (2.5-4.0) gm/dl Albumin/Globulin Ratio 0.7 L (0.9-2) TSH 0.677 (0.300-4.500) uIu/ml Urine Color Urine Appearance (Clear) Urine pH (4.5-7.5) Ur Specific [place] (1.000-1.030) Urine Protein (Negative) Urine Glucose (UA) (Negative) Urine Ketones (Negative) Urine Blood (Negative) Urine Nitrite (Negative) Urine Bilirubin (Negative) Urine Urobilinogen (Negative) Ur Leukocyte Esterase (Negative) Urine WBC (Auto) (0-5) /hpf Urine RBC (Auto) (0-4) /hpf U Hyaline Cast (Auto) (0-5) /lpf U Epithel Cells (Auto) (0-5) /lpf Urine Bacteria (Auto) (Negative) Urine Opiates Screen (Neg) Ur Methadone, Qual (Neg) Urine Barbiturates (Neg) Ur Phencyclidine (PCP) (Neg) U Amphetamin/Meth Scrn (Neg) MDMA (Ecstasy) Screen (Neg) U Benzodiazepines Scrn (Neg) Ur Cocaine Metabolite (Neg) U Marijuana (THC) Screen (Neg) PG Care Time/CCT Total # of Minutes Spent Total Time Spent with Patient: Total time spent is greater than 50% in coordination of care (as documented) at patient's floor/unit and/or counseling patient: Resident Activity Tracking Resident Involvement: Resident Care Provided Care Provided: Adult Hospital Medicine (1) UTI (urinary tract infection) Hematuria presence: with hematuria Urinary tract infection type: site unspecified Qualified Code(s): N39.0 - Urinary tract infection, site not specified; R31.9 - Hematuria, unspecified (2) Change in mental status Altered mental status type: unspecified Qualified Code(s): R41.82 - Altered mental status, unspecified
[2019-06-07] MEDS ORDERED: cefTRIAXone SODIUM 1,000 MG in DEXTROSE 5% 50 ML IV SCH (19:00)
[2019-06-07] MEDS: ATORVASTATIN 10 MG TAB PO SCH (20:26)
[2019-06-07] MEDS: INSULIN GLARGINE SOLOSTAR 100 UNITS/ML 3 ML PEN SC SCH (20:40)
[2019-06-08] MEDS ORDERED: FUROSEMIDE 20 MG in SYRINGE 0 ML IV STA (01:32)
[2019-06-08] MEDS ORDERED: HydrALAZINE HCL 20 MG/ML VIAL IV ONE (01:57)
[2019-06-08] MEDS: SODIUM CHLORIDE 0.65% NA SOLN 45 ML (OCEAN) SCH ×4 (03:07→21:08)
[2019-06-08 07:05] LABS: Basophils # (auto) 0.04 K/uL (0-0.2); Basophils % (auto) 0.3 %; Hematocrit (blood only) 43.2 % (37-47); Hemoglobin 13.7 g/dL (12.0-16.0); Immature Granulocytes # (auto) 0.05 K/uL (0.00-0.02); Immature Granulocytes % (auto) 0.4 %; Lymphocytes # (auto) 0.94 K/uL (1.2-3.4); Lymphocytes % (auto) 7.4 %; Mean Corpuscular Hemoglobin 23.4 pg (25-34); Mean Corpuscular Hgb Conc 31.7 g/dL (32-36); Mean Corpuscular Volume 73.7 fL (80-100); Mean Platelet Volume 10.6 fL (7.4-10.4); Monocytes # (auto) 0.98 K/uL (0.11-0.59); Monocytes % (auto) 7.7 %; Neutrophils # (auto) 10.64 K/uL (1.4-6.5); Neutrophils % (auto) 84.2 %; Platelet Count 212 K/uL (130-400); RDW Coefficient of Variation 17.3 % (11.5-14.5); RDW Standard Deviation 46.4 fL (36.4-46.3); Red Blood Count 5.86 M/uL (4.2-5.4); White Blood Count 12.65 K/uL (4.8-10.8)
--- NOTE | 2019-06-08 07:06 | XRay Report ---
XR chest 1V portable CLINICAL HISTORY: tachypnea COMPARISON STUDY: Chest radiograph June 06, 2019. FINDINGS: A dual-lead left subclavian pacemaker is noted as well as an aortic valve prosthesis. Moder ate cardiomegaly is noted. There has been interval development of interstitial thickening. There is n o pneumothorax. Trace bilateral pleural effusions are noted. There is no lobar consolidation. IMPRESSION: 1. Interval development of pulmonary edema. 2. Trace bilateral pleural effusions. 3. Cardiomegaly. Electronically signed by: Roberto Mcgee M.D. 06/08/2019 7:05 AM
[2019-06-08 07:22] LABS: Prothrombin Time 37.1 Seconds (9.0-12.0)
[2019-06-08 08:05] LABS: BUN Creatinine Ratio 18.2 (10-20); Creatinine Clr Calc Pharmacy 29.6 ml/min; Est GFR (African American) 50.8; Est GFR (Non-African American) 43.8; Potassium 3.9 mmol/L (3.5-5.1)
--- NOTE | 2019-06-08 08:39 | Family Medicine Progress Note ---
Date of Service June 08, 2019 Assessment & Plan (1) Change in mental status: This is an 88-year-old female resident of [facility] with underlying dementia admitted on 06/06/19 for altered mental status, found to have a UTI. - UA: cloudy, neg nitrites, 2+ leuk est, 4+ bacteria - urine culture: citrobacter freundii resistant to ceftriaxone started - IV ceftriaxone which was started empirically on admission was discontinued and ciprofloxacin (with renal dosing) was started. - 1/2 blood cultures pending showing growth of coag neg staph not lugdenesis. In the event this represents a contaminant, blood cultures were drawn today - WBC count 12.6 today, up from 7.8 on admission - contaminated urine likely represents an infectious etiology of AMS - Electrolytes WNL, LFTs WNL, VBG revealed only minimal elevation of pH to 7.46. Metabolic derangements unlikely to be etiology - Head CT showed no acute intracranial abnormality Dispo: med/tele FEN/GI: Diabetic diet DVT ppx: Supra therapeutic on Coumadin, INR 4.0 CODE STATUS: DNR/DNI as discussed with patient's POA and daughter Gunjan. (2) Weakness: Likely secondary to above infection; continue antibiotics -PT/OT today (3) UTI (urinary tract infection): -likely cause of altered mental status -plan as above (4) Chronic atrial fibrillation: - On chronic anticoagulation with coumadin. -INR 4.0 today, up from 3.1; Goal 2.0-2.5. -it appears as though 3.0mg dose of coumadin was given yesterday (while 1.2mg dose was held); all coumadin will be held today 06/08 -follow INR daily (5) Hypertension: Hypertensive urgency today with BP elevated today at 216/101. Home Imdur dose increased from 30mg to 60mg. BP improved to 135/80. -Continue home metoprolol 100 twice daily, losartan 25 every morning, Imdur at 60mg. - Electrolytes WNL (6) Anemia: (7) Status post transcatheter aortic valve replacement (TAVR) using bioprosthesi s: (8) CAD (coronary artery disease), [place] coronary artery: Continue home aspirin 81mg (9) Hyperlipidemia: Continue home statin. (10) Diabetes: - Continue home basal insulin dosing. - sliding scale in hospital - Last A1c in January was less than 7 (below goal) (11) Systolic congestive heart failure: Appears euvolemic on my exam. Restarted home dose lasix (12) Status post corneal transplant: Continue home fluorometholone drops every morning Supervising Physician Co-Signing Physician Notes Patient seen and examined with Dr. Sapp. I agree with their exam findings, review of systems, assessment and plan. I have personally reviewed the lab work and imaging from today. more agitated this morning, had a difficult night, little sleep, yelling out, delirious difficult time keeping her attention today, pulling at IV site, oriented to person only reviewed cultures, urine with Citrobacter, resistant to Rocephin, changed to Cipro Exam: thin elderly female, NAD, lungs CTA bilaterally, normal effort, alert, oriented to person only today, increased confusion - Acute metabolic encephalopathy: now with some hospital delirium making issue more difficult to manage hope for some improvement changing to effective antibiotic - UTI: culture growing Citrobacter, resistant to Rocephin, change to Cipro - Positive blood culture: coag neg staph, only one set, doubt this is true bacteremia, repeat blood cultures today - Elevated INR: up to 4.0 today, will hold Coumadin plan to return to [facility], likely in 24-48 hours Subjective Per nursing: patient became confused, combative and irritable overnight. She was placed in a low bed with side rails with a cushioned floor mat. Eating and drinking some. Not ambulating Review of Systems Review of Systems: Denies being in any discomfort Physical Exam Physical Exam: General Appearance: well-developed, well-nourished older adult woman. Appears ill. Calling out to family members who are not there while resting in bed. Dumps meal tray on herself. HEENT: NC/AT. Sclera anicteric. Neck: Supple. CV: RRR. S1 and S2 appreciated. No murmurs, clicks, gallops or rubs. Lungs: CTA in all lung phillips bilaterally with equal air movement. No wheezes, rales, rhonchi or crackles. Abdomen: Soft, non-tender, non-distended. Normoactive BS in all 4 quadrants. Extremities: 3 inch raised hematoma with overlaying violaceous skin on R forearm. No LE edema bilaterally. Skin: warm, dry, and intact Neuro: AAO x 3 (can state full name, knows she is in [place] [place], [place] but states she is in her long term home rather than the hospital, thinks year is 2019, knows month of May). No focal deficits. Psych: Lethargic. Appropriate mood and affect. Results & Data Vital Signs (Past 12 Hours) Vital Signs Temp Pulse Pulse Resp BP BP Pulse Ox 06/08/19 07:59 36.8 C 75 20 216/101 H 96 06/08/19 03:04 36.9 C 66 24 178/80 H 93 06/08/19 02:16 170/83 H 06/08/19 01:22 37.6 C H 72 30 H 221/110 H 94 06/08/19 00:16 79 06/07/19 23:24 37.0 C 64 19 178/81 H 90 Laboratory Results 06/08/19 06/08/19 06/08/19 Range/Units 07:44 06:55 06:55 WBC (4.8-10.8) K/uL RBC (4.2-5.4) M/uL Hgb (12.0-16.0) g/dL Hct (37-47) % MCV (80-100) fL MCH (25-34) pg MCHC (32-36) g/dL RDW Std Deviation (36.4-46.3) fL RDW Coeff of Debora (11.5-14.5) % Plt Count (130-400) K/uL MPV (7.4-10.4) fL Immature Gran % (Auto) % Neut % (Auto) % Lymph % (Auto) % [place] % (Auto) % Eos % (Auto) % Baso % (Auto) % Immature Gran # (Auto) (0.00-0.02) K/uL Neut # (Auto) (1.4-6.5) K/uL Lymph # (Auto) (1.2-3.4) K/uL [place] # (Auto) (0.11-0.59) K/uL Eos # (Auto) (0-0.5) K/uL Baso # (Auto) (0-0.2) K/uL PT (9.0-12.0) Seconds INR (0.9-1.1) Sodium (136-145) mmol/L Potassium (3.5-5.1) mmol/L Chloride (98-107) mmol/L Carbon Dioxide (21-32) mmol/L Anion Gap (3-11) BUN (7-18) mg/dl Creatinine (0.6-1.2) mg/dl Est Cr Clr Drug Dosing ml/min Est GFR ( Amer) Est GFR (Non-Af Amer) BUN/Creatinine Ratio (10-20) Glucose (70-99) mg/dl POC Glucose 219 H (70-99) Lactate 1.9 (0.4-2.0) mmol/L Calcium (8.5-10.1) mg/dl NT-Pro-B Natriuret Pep (0-1800) pg/ml Procalcitonin 0.09 (0-0.5) ng/ml Specimen Hemolysis 06/08/19 06/08/19 06/08/19 Range/Units 06:55 06:55 06:55 WBC 12.65 H (4.8-10.8) K/uL RBC 5.86 H (4.2-5.4) M/uL Hgb 13.7 (12.0-16.0) g/dL Hct 43.2 (37-47) % MCV 73.7 L (80-100) fL MCH 23.4 L (25-34) pg MCHC 31.7 L (32-36) g/dL RDW Std Deviation 46.4 H (36.4-46.3) fL RDW Coeff of Debora 17.3 H (11.5-14.5) % Plt Count 212 (130-400) K/uL MPV 10.6 H (7.4-10.4) fL Immature Gran % (Auto) 0.4 % Neut % (Auto) 84.2 % Lymph % (Auto) 7.4 % [place] % (Auto) 7.7 % Eos % (Auto) 0.0 % Baso % (Auto) 0.3 % Immature Gran # (Auto) 0.05 H (0.00-0.02) K/uL Neut # (Auto) 10.64 H (1.4-6.5) K/uL Lymph # (Auto) 0.94 L (1.2-3.4) K/uL [place] # (Auto) 0.98 H (0.11-0.59) K/uL Eos # (Auto) 0.00 (0-0.5) K/uL Baso # (Auto) 0.04 (0-0.2) K/uL PT 37.1 H (9.0-12.0) Seconds INR 4.0 H (0.9-1.1) Sodium 135 L (136-145) mmol/L Potassium 3.9 (3.5-5.1) mmol/L Chloride 97 L (98-107) mmol/L Carbon Dioxide 32 (21-32) mmol/L Anion Gap 6.0 (3-11) BUN 20 H (7-18) mg/dl Creatinine 1.12 (0.6-1.2) mg/dl Est Cr Clr Drug Dosing 29.6 ml/min Est GFR ( Amer) 50.8 Est GFR (Non-Af Amer) 43.8 BUN/Creatinine Ratio 18.2 (10-20) Glucose 190 H (70-99) mg/dl POC Glucose (70-99) Lactate (0.4-2.0) mmol/L Calcium 9.0 (8.5-10.1) mg/dl NT-Pro-B Natriuret Pep 3507 H (0-1800) pg/ml Procalcitonin (0-0.5) ng/ml Specimen Hemolysis 06/08/19 06/07/19 06/07/19 Range/Units 01:24 20:29 16:59 WBC (4.8-10.8) K/uL RBC (4.2-5.4) M/uL Hgb (12.0-16.0) g/dL Hct (37-47) % MCV (80-100) fL MCH (25-34) pg MCHC (32-36) g/dL RDW Std Deviation (36.4-46.3) fL RDW Coeff of Debora (11.5-14.5) % Plt Count (130-400) K/uL MPV (7.4-10.4) fL Immature Gran % (Auto) % Neut % (Auto) % Lymph % (Auto) % [place] % (Auto) % Eos % (Auto) % Baso % (Auto) % Immature Gran # (Auto) (0.00-0.02) K/uL Neut # (Auto) (1.4-6.5) K/uL Lymph # (Auto) (1.2-3.4) K/uL [place] # (Auto) (0.11-0.59) K/uL Eos # (Auto) (0-0.5) K/uL Baso # (Auto) (0-0.2) K/uL PT (9.0-12.0) Seconds INR (0.9-1.1) Sodium (136-145) mmol/L Potassium (3.5-5.1) mmol/L Chloride (98-107) mmol/L Carbon Dioxide (21-32) mmol/L Anion Gap (3-11) BUN (7-18) mg/dl Creatinine (0.6-1.2) mg/dl Est Cr Clr Drug Dosing ml/min Est GFR ( Amer) Est GFR (Non-Af Amer) BUN/Creatinine Ratio (10-20) Glucose (70-99) mg/dl POC Glucose 169 H 193 H 126 H (70-99) Lactate (0.4-2.0) mmol/L Calcium (8.5-10.1) mg/dl NT-Pro-B Natriuret Pep (0-1800) pg/ml Procalcitonin (0-0.5) ng/ml Specimen Hemolysis 06/07/19 Range/Units 11:51 WBC (4.8-10.8) K/uL RBC (4.2-5.4) M/uL Hgb (12.0-16.0) g/dL Hct (37-47) % MCV (80-100) fL MCH (25-34) pg MCHC (32-36) g/dL RDW Std Deviation (36.4-46.3) fL RDW Coeff of Debora (11.5-14.5) % Plt Count (130-400) K/uL MPV (7.4-10.4) fL Immature Gran % (Auto) % Neut % (Auto) % Lymph % (Auto) % [place] % (Auto) % Eos % (Auto) % Baso % (Auto) % Immature Gran # (Auto) (0.00-0.02) K/uL Neut # (Auto) (1.4-6.5) K/uL Lymph # (Auto) (1.2-3.4) K/uL [place] # (Auto) (0.11-0.59) K/uL Eos # (Auto) (0-0.5) K/uL Baso # (Auto) (0-0.2) K/uL PT (9.0-12.0) Seconds INR (0.9-1.1) Sodium (136-145) mmol/L Potassium (3.5-5.1) mmol/L Chloride (98-107) mmol/L Carbon Dioxide (21-32) mmol/L Anion Gap (3-11) BUN (7-18) mg/dl Creatinine (0.6-1.2) mg/dl Est Cr Clr Drug Dosing ml/min Est GFR ( Amer) Est GFR (Non-Af Amer) BUN/Creatinine Ratio (10-20) Glucose (70-99) mg/dl POC Glucose 143 H (70-99) Lactate (0.4-2.0) mmol/L Calcium (8.5-10.1) mg/dl NT-Pro-B Natriuret Pep (0-1800) pg/ml Procalcitonin (0-0.5) ng/ml Specimen Hemolysis PG Care Time/CCT Total # of Minutes Spent Total Time Spent with Patient: Total time spent is greater than 50% in coordination of care (as documented) at patient's floor/unit and/or counseling patient: Resident Activity Tracking Resident Involvement: Resident Care Provided Care Provided: Adult Hospital Medicine (1) UTI (urinary tract infection) Hematuria presence: with hematuria Urinary tract infection type: site unspecified Qualified Code(s): N39.0 - Urinary tract infection, site not sp ecified; R31.9 - Hematuria, unspecified (2) Change in mental status Altered mental status type: unspecified Qualified Code(s): R41.82 - Altered mental status, unspecified
[2019-06-08] MEDS: FUROSEMIDE 20 MG TAB PO SCH (08:53)
[2019-06-08] MEDS: KONDREMUL 480ML PO SCH (08:53)
[2019-06-08] MEDS: LOSARTAN POTASSIUM 25 MG TAB PO SCH (08:53)
[2019-06-08] MEDS: METOPROLOL SUCC 50MG EXT REL TAB PO SCH ×2 (08:53→21:09)
[2019-06-08] MEDS: ISOSORBIDE MONO EXTENDED REL 30 MG TABCR PO SCH (08:53)
[2019-06-08] MEDS: FOLIC ACID 400 MCG TAB PO SCH (08:53)
[2019-06-08] MEDS: DOCUSATE SODIUM 100 MG CAP PO SCH ×2 (08:53→21:09)
[2019-06-08] MEDS: BENZONATATE 100 MG CAPSULE PO SCH ×3 (08:53→21:14)
[2019-06-08] MEDS: POLYETHYLENE (MIRALAX) 17 GM PACK PO SCH (08:53)
[2019-06-08] MEDS: CALCIUM 600MG + VIT D 400 IU TAB PO SCH (08:53)
[2019-06-08] MEDS: ASPIRIN 81 MG ECTAB PO SCH (08:53)
[2019-06-08] MEDS: FLUOROMETHOLONE 0.1% OP SCH (08:54)
[2019-06-08] MEDS: INSULIN ASPART 100 UNITS/ML 3 ML PEN SC SCH ×4 (08:54→21:05)
[2019-06-08] MEDS ORDERED: ISOSORBIDE MONO EXTENDED REL 30 MG TABCR PO ONE (09:14)
[2019-06-08] MEDS: CIPROFLOXACIN 500 MG TAB PO SCH ×2 (09:40→21:15)
[2019-06-08] MEDS ORDERED: levoFLOXacin 750 MG TAB PO SCH (11:00)
[2019-06-08] MEDS ORDERED: WARFARIN SOD 0.5 MG TAB PO SCH (16:00)
[2019-06-08] MEDS: INSULIN GLARGINE SOLOSTAR 100 UNITS/ML 3 ML PEN SC SCH (21:04)
[2019-06-08] MEDS: ATORVASTATIN 10 MG TAB PO SCH (21:08)
[2019-06-09] MEDS: METOPROLOL TARTRATE 1 MG/ML VIAL IV PRN ×2 (00:30→03:44)
[2019-06-09] MEDS: SODIUM CHLORIDE 0.65% NA SOLN 45 ML (OCEAN) SCH ×4 (03:44→21:17)
[2019-06-09 07:05] LABS: Basophils # (auto) 0.02 K/uL (0-0.2); Basophils % (auto) 0.2 %; Eosinophils # (auto) 0.18 K/uL (0-0.5); Eosinophils % (auto) 1.7 %; Hematocrit (blood only) 43.2 % (37-47); Hemoglobin 13.3 g/dL (12.0-16.0); Immature Granulocytes # (auto) 0.04 K/uL (0.00-0.02); Immature Granulocytes % (auto) 0.4 %; Lymphocytes # (auto) 1.41 K/uL (1.2-3.4); Lymphocytes % (auto) 13.2 %; Mean Corpuscular Hemoglobin 22.9 pg (25-34); Mean Corpuscular Hgb Conc 30.8 g/dL (32-36); Mean Corpuscular Volume 74.4 fL (80-100); Mean Platelet Volume 10.9 fL (7.4-10.4); Monocytes # (auto) 1.31 K/uL (0.11-0.59); Monocytes % (auto) 12.3 %; Neutrophils # (auto) 7.69 K/uL (1.4-6.5); Neutrophils % (auto) 72.2 %; Platelet Count 202 K/uL (130-400); RDW Coefficient of Variation 17.6 % (11.5-14.5); RDW Standard Deviation 47.4 fL (36.4-46.3); Red Blood Count 5.81 M/uL (4.2-5.4); White Blood Count 10.65 K/uL (4.8-10.8)
[2019-06-09 07:29] LABS: Prothrombin Time 39.8 Seconds (9.0-12.0)
[2019-06-09 07:31] LABS: INR 4.3 (0.9-1.1)
[2019-06-09 07:53] LABS: Anisocytosis Present; Ovalocytes 1+
[2019-06-09] MEDS: FLUOROMETHOLONE 0.1% OP SCH (08:25)
[2019-06-09] MEDS: POLYETHYLENE (MIRALAX) 17 GM PACK PO SCH (08:25)
[2019-06-09] MEDS: KONDREMUL 480ML PO SCH (08:25)
[2019-06-09] MEDS: FUROSEMIDE 20 MG TAB PO SCH (08:25)
[2019-06-09] MEDS: ISOSORBIDE MONO EXTENDED REL 60 MG TABCR PO SCH (08:26)
[2019-06-09] MEDS: CIPROFLOXACIN 500 MG TAB PO SCH ×2 (08:26→21:16)
[2019-06-09] MEDS: FOLIC ACID 400 MCG TAB PO SCH (08:26)
[2019-06-09] MEDS: BENZONATATE 100 MG CAPSULE PO SCH ×3 (08:26→21:17)
[2019-06-09] MEDS: METOPROLOL SUCC 50MG EXT REL TAB PO SCH ×2 (08:26→21:15)
[2019-06-09] MEDS: LOSARTAN POTASSIUM 25 MG TAB PO SCH (08:27)
[2019-06-09] MEDS: ASPIRIN 81 MG ECTAB PO SCH (08:27)
[2019-06-09] MEDS: DOCUSATE SODIUM 100 MG CAP PO SCH ×2 (08:27→21:15)
[2019-06-09] MEDS: CALCIUM 600MG + VIT D 400 IU TAB PO SCH (08:27)
[2019-06-09] MEDS: INSULIN ASPART 100 UNITS/ML 3 ML PEN SC SCH ×4 (08:38→21:17)
[2019-06-09] MEDS ORDERED: LOSARTAN POTASSIUM 25 MG TAB PO ONE (10:30)
[2019-06-09] MEDS ORDERED: bisacodyL 10 MG SUPP PR STA (10:51)
[2019-06-09] MEDS ORDERED: POLYETHYLENE (MIRALAX) 17 GM PACK PO SCH (11:00)
--- NOTE | 2019-06-09 13:26 | Family Medicine Progress Note ---
Date of Service June 09, 2019 Assessment & Plan (1) Metabolic encephalopathy: This is an 88-year-old female resident of [facility] with underlying dementia admitted on 06/06/19 for altered mental status, found to have a UTI. - UA: cloudy, neg nitrites, 2+ leuk est, 4+ bacteria - urine culture: citrobacter freundii resistant to ceftriaxone started - IV ceftriaxone which was started empirically on admission was discontinued and ciprofloxacin (with renal dosing) was started on 06/08 - 08/25 blood cultures pending showing growth of coag neg staph not lugdenesis. In the event this represents a contaminant, blood cultures were drawn 06/08 and show no growth through 24 hours - contaminated urine likely represents an infectious etiology of AMS - WBC count at 10 today, down from 12 on 06/11 - Electrolytes WNL, LFTs WNL, VBG revealed only minimal elevation of pH to 7.46. - Head CT showed no acute intracranial abnormality - PT/OT ordered Dispo: med/tele FEN/GI: Diabetic diet DVT ppx: Supra therapeutic on Coumadin, INR 4.3 CODE STATUS: DNR/DNI as discussed with patient's POA and daughter Gunjan. (2) Weakness: Likely secondary to above infection; continue antibiotics -PT/OT ordered (3) UTI (urinary tract infection): -likely cause of altered mental status -plan as above (4) Chronic atrial fibrillation: - On chronic anticoagulation with coumadin. - INR 4.3 today, up from 4.0; Goal 2.0-2.5. - holding home dose coumadin - follow INR daily (5) Hypertension: - BP 181/81 this morning; added 25mg losartan dose; BP reduced to 149/83 - Continue home metoprolol 100 twice daily, losartan 25 every morning, Imdur at 60mg. - Electrolytes WNL (6) CAD (coronary artery disease), [place] coronary artery: Continue home aspirin 81mg (7) Status post transcatheter aortic valve replacement (TAVR) using bioprosthesis: (8) Hyperlipidemia: Continue home statin. (9) Diabetes: - Continue home basal insulin dosing. - sliding scale in hospital - Last A1c in January was less than 7 (below goal) (10) Systolic congestive heart failure: continue home dose lasix electrolytes stable (11) Status post corneal transplant: Continue home fluorometholone drops every morning Supervising Physician Co-Signing Physician Notes Patient seen and examined with Dr. Sapp. I agree with their exam findings, review of systems, assessment and plan. I have personally reviewed the lab work and imaging from today. patient calmer today BP still quite elevated, will try increasing Losartan will get PT/OT today updated family patient is eating okay Exam: thin elderly female, NAD, lungs CTA bilaterally, normal effort, alert, oriented to person only - Acute metabolic encephalopathy: now with some hospital delirium making issue more difficult to manage hope for some improvement changing to effective antibiotic continues to have symptoms that wax a wane - UTI: culture growing Citrobacter, resistant to Rocephin, change to Cipro complete 10 days total - Positive blood culture: coag neg staph, only one set, doubt this is true bacteremia, repeat blood cultures with no growth - Elevated INR: up to 4.1 today, will continue to hold Coumadin - HTN: BP elevated again today, despite increasing Imdur to 60mg, will increase Losartan to 50mg plan to return to [facility], likely in 24 hours, PT/OT consulted Subjective Eating and drinking some. Not ambulating. States that today is "a bad day." Review of Systems Review of Systems: Denies being in any discomfort Genitourinary: + urinary incontinence (per [facility] staff); no dysuria Physical Exam Constitutional: WD/WN, vitals as above Eyes: + anicteric sclerae ENMT: external ear and nose normal, oropharynx normal Neck: trachea midline Respiratory: normal respiratory effort, lungs clear to auscultation Cardiovascular: RRR, no murmur, no edema Heart Sounds: normal S1 and normal S2 Gastrointestinal (Abdomen): Inspection/Auscultation: + abdomen distended Percussion/Palpation: + tympanic to percussion Skin: no rashes, warm and dry Neurologic: awake Psychiatric: Orientation: oriented to person, oriented to place ([facility] [employer] but believes she is in her longterm home), oriented to time (states year is 2019; knows month is May) and cooperative Results & Data Vital Signs (Past 12 Hours) Vital Signs Temp Pulse Pulse Resp BP BP BP 06/09/19 12:14 36.4 C L 60 28 H 149/83 H 06/09/19 11:03 36.7 C 57 L 22 146/77 H 06/09/19 07:00 36.2 C L 60 16 194/92 H 06/09/19 04:20 36.9 C 60 18 181/81 H 06/09/19 03:44 60 181/81 H Pulse Ox 06/09/19 12:14 96 06/09/19 11:03 97 06/09/19 07:00 95 06/09/19 04:20 95 06/09/19 03:44 Laboratory Results 06/09/19 06/09/19 06/09/19 Range/Units 12:01 07:30 06:55 WBC (4.8-10.8) K/uL RBC (4.2-5.4) M/uL Hgb (12.0-16.0) g/dL Hct (37-47) % MCV (80-100) fL MCH (25-34) pg MCHC (32-36) g/dL RDW Std Deviation (36.4-46.3) fL RDW Coeff of Debora (11.5-14.5) % Plt Count (130-400) K/uL MPV (7.4-10.4) fL Immature Gran % (Auto) % Neut % (Auto) % Lymph % (Auto) % Martin % (Auto) % Eos % (Auto) % Baso % (Auto) % Immature Gran # (Auto) (0.00-0.02) K/uL Neut # (Auto) (1.4-6.5) K/uL Lymph # (Auto) (1.2-3.4) K/uL Martin # (Auto) (0.11-0.59) K/uL Eos # (Auto) (0-0.5) K/uL Baso # (Auto) (0-0.2) K/uL Anisocytosis Ovalocytes PT 39.8 H (9.0-12.0) Seconds INR 4.3 H (0.9-1.1) POC Glucose 136 H 137 H (70-99) 06/09/19 06/08/19 06/08/19 Range/Units 06:54 20:03 17:01 WBC 10.65 (4.8-10.8) K/uL RBC 5.81 H (4.2-5.4) M/uL Hgb 13.3 (12.0-16.0) g/dL Hct 43.2 (37-47) % MCV 74.4 L (80-100) fL MCH 22.9 L (25-34) pg MCHC 30.8 L (32-36) g/dL RDW Std Deviation 47.4 H (36.4-46.3) fL RDW Coeff of Debora 17.6 H (11.5-14.5) % Plt Count 202 (130-400) K/uL MPV 10.9 H (7.4-10.4) fL Immature Gran % (Auto) 0.4 % Neut % (Auto) 72.2 % Lymph % (Auto) 13.2 % Martin % (Auto) 12.3 % Eos % (Auto) 1.7 % Baso % (Auto) 0.2 % Immature Gran # (Auto) 0.04 H (0.00-0.02) K/uL Neut # (Auto) 7.69 H (1.4-6.5) K/uL Lymph # (Auto) 1.41 (1.2-3.4) K/uL Martin # (Auto) 1.31 H (0.11-0.59) K/uL Eos # (Auto) 0.18 (0-0.5) K/uL Baso # (Auto) 0.02 (0-0.2) K/uL Anisocytosis Present Ovalocytes 1+ PT (9.0-12.0) Seconds INR (0.9-1.1) POC Glucose 213 H 125 H (70-99) PG Care Time/CCT Total # of Minutes Spent Total Time Spent with Patient: Total time spent is greater than 50% in coordination of care (as documented) at patient's floor/unit and/or counseling patient: Resident Activity Tracking Resident Involvement: Resident Care Provided Care Provided: Adult Hospital Medicine (1) UTI (urinary tract infection) Hematuria presence: with hematuria Urinary tract infection type: site unspecified Qualified Code(s): N39.0 - Urinary tract infection, site not specified; R31.9 - Hematuria, unspecified
[2019-06-09] MEDS ORDERED: POLYETHYLENE (MIRALAX) 17 GM PACK PO STA (17:50)
[2019-06-09] MEDS: INSULIN GLARGINE SOLOSTAR 100 UNITS/ML 3 ML PEN SC SCH (21:18)
[2019-06-09] MEDS: ATORVASTATIN 10 MG TAB PO SCH (21:31)
[2019-06-10] MEDS: METOPROLOL TARTRATE 1 MG/ML VIAL IV PRN (03:55)
[2019-06-10] MEDS: SODIUM CHLORIDE 0.65% NA SOLN 45 ML (OCEAN) SCH ×4 (04:12→20:09)
[2019-06-10 07:22] LABS: Creatinine Clr Calc Pharmacy 30.2 ml/min; Est GFR (African American) 52.5; Est GFR (Non-African American) 45.3
[2019-06-10] MEDS ORDERED: bisacodyL 10 MG SUPP PR STA (07:42)
[2019-06-10 08:31] LABS: Basophils # (auto) 0.02 K/uL (0-0.2); Basophils % (auto) 0.2 %; Eosinophils # (auto) 0.06 K/uL (0-0.5); Eosinophils % (auto) 0.6 %; Hematocrit (blood only) 43.9 % (37-47); Hemoglobin 13.4 g/dL (12.0-16.0); Immature Granulocytes # (auto) 0.04 K/uL (0.00-0.02); Immature Granulocytes % (auto) 0.4 %; Lymphocytes # (auto) 1.12 K/uL (1.2-3.4); Lymphocytes % (auto) 10.8 %; Mean Corpuscular Hemoglobin 22.8 pg (25-34); Mean Corpuscular Hgb Conc 30.5 g/dL (32-36); Mean Corpuscular Volume 74.5 fL (80-100); Monocytes % (auto) 14.5 %; Neutrophils # (auto) 7.59 K/uL (1.4-6.5); Neutrophils % (auto) 73.5 %; Platelet Count 199 K/uL (130-400); RDW Coefficient of Variation 17.5 % (11.5-14.5); RDW Standard Deviation 47.6 fL (36.4-46.3); Red Blood Count 5.89 M/uL (4.2-5.4); White Blood Count 10.33 K/uL (4.8-10.8)
[2019-06-10 08:43] LABS: INR 3.4 (0.9-1.1); Prothrombin Time 31.6 Seconds (9.0-12.0)
[2019-06-10 09:02] LABS: BUN Creatinine Ratio 30.9 (10-20); Est GFR (African American) 56.2; Est GFR (Non-African American) 48.5; Potassium 4.1 mmol/L (3.5-5.1)
[2019-06-10 09:18] LABS: Ovalocytes 1+
[2019-06-10] MEDS: CIPROFLOXACIN 500 MG TAB PO SCH ×2 (09:29→20:08)
[2019-06-10] MEDS: CALCIUM 600MG + VIT D 400 IU TAB PO SCH (09:29)
[2019-06-10] MEDS: DOCUSATE SODIUM 100 MG CAP PO SCH ×2 (09:30→20:07)
[2019-06-10] MEDS: LOSARTAN POTASSIUM 25 MG TAB PO SCH (09:32)
[2019-06-10] MEDS: ASPIRIN 81 MG ECTAB PO SCH (09:33)
[2019-06-10] MEDS: FOLIC ACID 400 MCG TAB PO SCH (09:33)
[2019-06-10] MEDS: ISOSORBIDE MONO EXTENDED REL 60 MG TABCR PO SCH (09:34)
[2019-06-10] MEDS: METOPROLOL SUCC 50MG EXT REL TAB PO SCH ×2 (09:35→20:09)
[2019-06-10] MEDS: KONDREMUL 480ML PO SCH (09:37)
[2019-06-10] MEDS: BENZONATATE 100 MG CAPSULE PO SCH ×3 (09:37→20:07)
[2019-06-10] MEDS: FLUOROMETHOLONE 0.1% OP SCH (09:37)
[2019-06-10] MEDS: POLYETHYLENE (MIRALAX) 17 GM PACK PO SCH (09:37)
[2019-06-10] MEDS: FUROSEMIDE 20 MG TAB PO SCH (09:38)
[2019-06-10] MEDS: INSULIN ASPART 100 UNITS/ML 3 ML PEN SC SCH ×4 (11:04→20:32)
--- NOTE | 2019-06-10 13:30 | Family Medicine Progress Note ---
Date of Service June 10, 2019 Assessment & Plan (1) Metabolic encephalopathy: This is an 88-year-old female resident of [facility] admitted on 06/06/19 for altered mental status, found to have a UTI. On Day 3 of Ciprofloxacin. - UA: cloudy, neg nitrites, 2+ leuk est, 4+ bacteria - urine culture: citrobacter freundii resistant to ceftriaxone started - IV ceftriaxone which was started empirically on admission was discontinued and ciprofloxacin (with renal dosing) was started on 06/08 - 08/25 blood cultures pending showing growth of coag neg staph not lugdenesis. In the event this represents a contaminant, blood cultures were drawn 06/08 and show no growth through 48 hours - contaminated urine likely represents an infectious etiology of AMS - WBC count remains normal - Electrolytes WNL, LFTs WNL, VBG revealed only minimal elevation of pH to 7.46. - Head CT showed no acute intracranial abnormality - PT/OT ordered Dispo: med/tele FEN/GI: Diabetic diet DVT ppx: Supra therapeutic on Coumadin, INR 3.4 today CODE STATUS: DNR/DNI as discussed with patient's POA and daughter Gunjan. (2) Hematuria: - patient was straight cathed this morning--> 1200ml - martinez placed and draining urine with many blood clots - patient is supratheraputic on coumadin -urology consult placed (3) UTI (urinary tract infection): -likely cause of altered mental status -plan as above (4) Weakness: Likely secondary to above infection; continue antibiotics -PT/OT ordered (5) Chronic atrial fibrillation: - On chronic anticoagulation with coumadin. - INR 3.4 today, down from 4.3; Goal 2.0-2.5. - holding home dose coumadin - follow INR daily (6) Hypertension: - BP 116/63 - Continue home metoprolol 100 twice daily, losartan 25 every morning, Imdur reduced to prior dose of 30mg. - it is possible elevated blood pressures were from discomfort associated with constipation/urinary retention - Electrolytes WNL (7) CAD (coronary artery disease), [place] coronary artery: Continue home aspirin 81mg (8) Status post transcatheter aortic valve replacement (TAVR) using bioprosthesis: (9) Hyperlipidemia: Continue home statin. (10) Diabetes: - Continue home basal insulin dosing. - sliding scale in hospital - Last A1c in January was less than 7 (below goal) (11) Systolic congestive heart failure: continue home dose lasix electrolytes stable (12) Status post corneal transplant: Continue home fluorometholone drops every morning Supervising Physician Co-Signing Physician Notes Patient seen and examined with Dr. Sapp. I agree with their exam findings, review of systems, assessment and plan. I have personally reviewed the lab work and imaging from today. patient was having a lot of incontinence for the past day bladder scan showed over a liter of fluid in bladder, martinez placed patient much calmer now, in hindsight she likely had urinary retention with overflow incontinence, causing her distress labs stable, BP better controlled with draining bladder long discussion with her daughter and son in law, she does NOT have a history of dementia, never been diagnosed she will have some occasional confusion she lives in personal care, at baseline she is independent, walks with a walker, eats regularly her current mental state is far from baseline Exam: thin elderly female, NAD, lungs CTA bilaterally, normal effort, alert, oriented to person and place today heart regular S1 S2 no murmurs - Acute metabolic encephalopathy: now with some hospital delirium making issue more difficult to manage hope for some improvement changing to effective antibiotic continues to have symptoms that wax a wane, lethargic hoping that she will improve now that bladder is drained - UTI: culture growing Citrobacter, resistant to Rocephin, changed to Cipro complete 10 days total - Positive blood culture: coag neg staph, only one set, doubt this is true bacteremia, repeat blood cultures with no growth - Elevated INR: coming down to 3.4, will continue to hold Coumadin - HTN: BP better controlled after martinez placed, it was likely that the discomfort was driving her BP up back the Imdur down to 30mg, baseline dose plan to return to [facility], will not go this weekend we need more in depth PT/OT evaluations Subjective Laying in bed. Says she is doing "okay" Review of Systems Review of Systems: Difficult to obtain Physical Exam Constitutional: WD/WN, vitals as above Eyes: + anicteric sclerae ENMT: external ear and nose normal, oropharynx normal Neck: trachea midline Respiratory: normal respiratory effort, lungs clear to auscultation Cardiovascular: RRR, no murmur, no edema Heart Sounds: normal S1 and normal S2 Gastrointestinal (Abdomen): Inspection/Auscultation: + abdomen distended and + hypoactive bowel sounds Percussion/Palpation: + tympanic to percussion Skin: no rashes, warm and dry Neurologic: awake Psychiatric: Orientation: cooperative; + not alert (lethargic) Genitourinary: + bladder abnormality (bladder distention) Martinez catheter in place; draining urine with visible blood clots Results & Data Vital Signs (Past 12 Hours) Vital Signs Temp Pulse Pulse Resp BP BP Pulse Ox 06/10/19 11:59 36.8 C 59 L 16 116/63 95 06/10/19 07:39 36.8 C 72 16 127/61 90 06/10/19 03:55 37.1 C 61 61 21 197/96 H 197/96 H 98 06/10/19 02:07 60 Laboratory Results 06/10/19 06/10/19 06/10/19 Range/Units 11:51 08:06 08:06 WBC (4.8-10.8) K/uL RBC (4.2-5.4) M/uL Hgb (12.0-16.0) g/dL Hct (37-47) % MCV (80-100) fL MCH (25-34) pg MCHC (32-36) g/dL RDW Std Deviation (36.4-46.3) fL RDW Coeff of Debora (11.5-14.5) % Plt Count (130-400) K/uL Immature Gran % (Auto) % Neut % (Auto) % Lymph % (Auto) % [place] % (Auto) % Eos % (Auto) % Baso % (Auto) % Immature Gran # (Auto) (0.00-0.02) K/uL Neut # (Auto) (1.4-6.5) K/uL Lymph # (Auto) (1.2-3.4) K/uL [place] # (Auto) (0.11-0.59) K/uL Eos # (Auto) (0-0.5) K/uL Baso # (Auto) (0-0.2) K/uL Ovalocytes PT 31.6 H (9.0-12.0) Seconds INR 3.4 H (0.9-1.1) Sodium 136 (136-145) mmol/L Potassium 4.1 (3.5-5.1) mmol/L Chloride 98 (98-107) mmol/L Carbon Dioxide 34 H (21-32) mmol/L Anion Gap 4.0 (3-11) BUN 32 H (7-18) mg/dl Creatinine 1.03 (0.6-1.2) mg/dl Est Cr Clr Drug Dosing 32.0 ml/min Est GFR ( Amer) 56.2 Est GFR (Non-Af Amer) 48.5 BUN/Creatinine Ratio 30.9 H (10-20) Glucose 126 H (70-99) mg/dl POC Glucose 180 H (70-99) Calcium 9.0 (8.5-10.1) mg/dl 06/10/19 06/10/19 06/10/19 Range/Units 08:06 07:25 06:22 WBC 10.33 (4.8-10.8) K/uL RBC 5.89 H (4.2-5.4) M/uL Hgb 13.4 (12.0-16.0) g/dL Hct 43.9 (37-47) % MCV 74.5 L (80-100) fL MCH 22.8 L (25-34) pg MCHC 30.5 L (32-36) g/dL RDW Std Deviation 47.6 H (36.4-46.3) fL RDW Coeff of Debora 17.5 H (11.5-14.5) % Plt Count 199 (130-400) K/uL Immature Gran % (Auto) 0.4 % Neut % (Auto) 73.5 % Lymph % (Auto) 10.8 % [place] % (Auto) 14.5 % Eos % (Auto) 0.6 % Baso % (Auto) 0.2 % Immature Gran # (Auto) 0.04 H (0.00-0.02) K/uL Neut # (Auto) 7.59 H (1.4-6.5) K/uL Lymph # (Auto) 1.12 L (1.2-3.4) K/uL [place] # (Auto) 1.50 H (0.11-0.59) K/uL Eos # (Auto) 0.06 (0-0.5) K/uL Baso # (Auto) 0.02 (0-0.2) K/uL Ovalocytes 1+ PT (9.0-12.0) Seconds INR (0.9-1.1) Sodium (136-145) mmol/L Potassium (3.5-5.1) mmol/L Chloride (98-107) mmol/L Carbon Dioxide (21-32) mmol/L Anion Gap (3-11) BUN (7-18) mg/dl Creatinine 1.09 (0.6-1.2) mg/dl Est Cr Clr Drug Dosing 30.2 ml/min Est GFR ( Amer) 52.5 Est GFR (Non-Af Amer) 45.3 BUN/Creatinine Ratio (10-20) Glucose (70-99) mg/dl POC Glucose 136 H (70-99) Calcium (8.5-10.1) mg/dl 06/09/19 06/09/19 Range/Units 20:32 16:45 WBC (4.8-10.8) K/uL RBC (4.2-5.4) M/uL Hgb (12.0-16.0) g/dL Hct (37-47) % MCV (80-100) fL MCH (25-34) pg MCHC (32-36) g/dL RDW Std Deviation (36.4-46.3) fL RDW Coeff of Debora (11.5-14.5) % Plt Count (130-400) K/uL Immature Gran % (Auto) % Neut % (Auto) % Lymph % (Auto) % [place] % (Auto) % Eos % (Auto) % Baso % (Auto) % Immature Gran # (Auto) (0.00-0.02) K/uL Neut # (Auto) (1.4-6.5) K/uL Lymph # (Auto) (1.2-3.4) K/uL [place] # (Auto) (0.11-0.59) K/uL Eos # (Auto) (0-0.5) K/uL Baso # (Auto) (0-0.2) K/uL Ovalocytes PT (9.0-12.0) Seconds INR (0.9-1.1) Sodium (136-145) mmol/L Potassium (3.5-5.1) mmol/L Chloride (98-107) mmol/L Carbon Dioxide (21-32) mmol/L Anion Gap (3-11) BUN (7-18) mg/dl Creatinine (0.6-1.2) mg/dl Est Cr Clr Drug Dosing ml/min Est GFR ( Amer) Est GFR (Non-Af Amer) BUN/Creatinine Ratio (10-20) Glucose (70-99) mg/dl POC Glucose 135 H 196 H (70-99) Calcium (8.5-10.1) mg/dl PG Care Time/CCT Total # of Minutes Spent Total Time Spent with Patient: Total time spent is greater than 50% in coordination of care (as documented) at patient's floor/unit and/or counseling patient: Resident Activity Tracking Resident Involvement: Resident Care Provided Care Provided: Adult Hospital Medicine (1) UTI (urinary tract infection) Hematuria presence: with hematuria Urinary tract infection type: site unspecified Qualified Code(s): N39.0 - Urinary tract infection, site not specified; R31.9 - Hematuria, unspecified
[2019-06-10] MEDS: ACETAMINOPHEN 325 MG TAB PO PRN (19:48)
[2019-06-10] MEDS: ATORVASTATIN 10 MG TAB PO SCH (20:08)
[2019-06-10] MEDS: INSULIN GLARGINE SOLOSTAR 100 UNITS/ML 3 ML PEN SC SCH (20:33)
[2019-06-11] MEDS: SODIUM CHLORIDE 0.65% NA SOLN 45 ML (OCEAN) SCH ×4 (05:01→20:07)
[2019-06-11] MEDS: ACETAMINOPHEN 325 MG TAB PO PRN ×3 (07:26→20:04)
[2019-06-11 07:32] LABS: Creatinine Clr Calc Pharmacy 29.1 ml/min; Est GFR (African American) 57.6; Est GFR (Non-African American) 49.7
[2019-06-11] MEDS: POLYETHYLENE (MIRALAX) 17 GM PACK PO SCH (08:29)
[2019-06-11] MEDS: DOCUSATE SODIUM 100 MG CAP PO SCH ×2 (08:30→20:06)
[2019-06-11] MEDS: CIPROFLOXACIN 500 MG TAB PO SCH ×2 (08:30→20:05)
[2019-06-11] MEDS: CALCIUM 600MG + VIT D 400 IU TAB PO SCH (08:30)
[2019-06-11] MEDS: ASPIRIN 81 MG ECTAB PO SCH (08:30)
[2019-06-11] MEDS: LOSARTAN POTASSIUM 25 MG TAB PO SCH (08:30)
[2019-06-11] MEDS: ISOSORBIDE MONO EXTENDED REL 30 MG TABCR PO SCH (08:31)
[2019-06-11] MEDS: FLUOROMETHOLONE 0.1% OP SCH (08:31)
[2019-06-11] MEDS: KONDREMUL 480ML PO SCH (08:31)
[2019-06-11] MEDS: BENZONATATE 100 MG CAPSULE PO SCH ×3 (08:31→20:07)
[2019-06-11] MEDS: FOLIC ACID 400 MCG TAB PO SCH (08:31)
[2019-06-11 08:32] LABS: INR 3.2 (0.9-1.1); Prothrombin Time 30.4 Seconds (9.0-12.0)
[2019-06-11] MEDS: METOPROLOL SUCC 50MG EXT REL TAB PO SCH ×2 (08:32→20:07)
--- NOTE | 2019-06-11 09:00 | Family Medicine Progress Note ---
Date of Service June 11, 2019 Assessment & Plan (1) Metabolic encephalopathy: This is an 88-year-old female resident of [facility] admitted on 06/06/19 for altered mental status, found to have a UTI. On Day 4 of Ciprofloxacin. - UA: cloudy, neg nitrites, 2+ leuk est, 4+ bacteria - urine culture: citrobacter freundii resistant to ceftriaxone - IV ceftriaxone which was started empirically on admission was discontinued and ciprofloxacin (with renal dosing) was started on 06/08; currently on day 12/01 of cipro course - 08/25 blood cultures pending showing growth of coag neg staph not lugdenesis. In the event this represents a contaminant, blood cultures were drawn 06/08 and show no growth through 48 hours - contaminated urine likely represents an infectious etiology of AMS; patient's family is adamant that Ms. Mitchell does NOT have an underlying history of dementia. She lives at [facility], which is NOT a dementia unit, but instead a personal residential. Her current altered state is far from her baseline - WBC count remains normal - Electrolytes WNL, LFTs WNL, VBG revealed only minimal elevation of pH to 7.46. - Head CT showed no acute intracranial abnormality - PT/OT ordered; recommended SNF placement post discharge; care management involved Dispo: med/tele FEN/GI: Diabetic diet DVT ppx: Supra therapeutic on Coumadin, INR 3.2 today CODE STATUS: DNR/DNI as discussed with patient's POA and daughter Gunjan. (2) Hematuria: - patient was having urinary retention followed by subsequent episodes of large incontinent voids - martinez placed and draining urine with many blood clots - patient is supratheraputic on coumadin - urology consult placed (has not yet been seen) - A/P CT scan with IV contrast ordered (3) UTI (urinary tract infection): -likely cause of altered mental status -plan as above (4) Weakness: Likely secondary to above infection; continue antibiotics -PT/OT ordered (5) Chronic atrial fibrillation: - On chronic anticoagulation with coumadin. - INR 3.2 today, down from 3.4; Goal 2.0-2.5. - holding home dose coumadin - follow INR daily (6) Hypertension: - BP 160/82 - Continue home metoprolol 100 twice daily, losartan 25 every morning, Imdur reduced to prior dose of 30mg. - it is possible elevated blood pressures were from discomfort associated with constipation/urinary retention - Electrolytes WNL (7) CAD (coronary artery disease), [place] coronary artery: Continue home aspirin 81mg (8) Status post transcatheter aortic valve replacement (TAVR) using bioprosthesis: (9) Hyperlipidemia: Continue home statin. (10) Diabetes: - Continue home basal insulin dosing. - sliding scale in hospital - Last A1c in January was less than 7 (below goal) (11) Systolic congestive heart failure: continue home dose lasix electrolytes stable (12) Status post corneal transplant: Continue home fluorometholone drops every morning Supervising Physician Co-Signing Physician Notes Patient seen and examined with Dr. Sapp. I agree with their exam findings, review of systems, assessment and plan. I have personally reviewed the lab work and imaging from today. patient more alert today, ate her breakfast oriented to person, believes she is at [facility], says it is [address] abdomen/pelvis today for the hematuria, just shows moderate stool burden has good BS no obvious distress, she denies chest pain, dyspnea, fever/chills, just admits that she is tired Exam: thin elderly female, NAD, lungs CTA bilaterally, normal effort, alert, oriented to person only heart regular S1 S2 no murmurs abdomen soft, ND, NT, dull to percussion - Acute metabolic encephalopathy: now with some hospital delirium making issue more difficult to manage hope for some improvement changing to effective antibiotic continues to have symptoms that wax a wane, mostly lethargy more energy today but still not completely oriented - UTI: culture growing Citrobacter, resistant to Rocephin, changed to Cipro complete 10 days total - Positive blood culture: coag neg staph, only one set, doubt this is true bacteremia, repeat blood cultures with no growth - Elevated INR: coming down to 3.2, will continue to hold Coumadin - HTN: BP better controlled after martinez placed, it was likely that the discomfort was driving her BP up back the Imdur down to 30mg, baseline dose - Constipation: Miralax and enema PRN - Hematuria: could be just due to martinez and INR 3.2, but she continues to have some clots CT abd/pelvis with no obvious bladder or renal lesions, no stones consult urology for their recommendations plan to return to [facility], will not go this weekend we need more in depth PT/OT evaluations Subjective Laying in bed. Says she is doing "okay" Review of Systems Review of Systems: Difficult to obtain due to lethargy Genitourinary: + urinary incontinence; no dysuria Physical Exam Constitutional: WD/WN, vitals as above Eyes: + anicteric sclerae ENMT: external ear and nose normal, oropharynx normal Neck: trachea midline Respiratory: normal respiratory effort, lungs clear to auscultation Cardiovascular: RRR, no murmur, no edema Heart Sounds: normal S1 and normal S2 Gastrointestinal (Abdomen): Inspection/Auscultation: + abdomen distended and + hypoactive bowel sounds Percussion/Palpation: + tympanic to percussion Skin: no rashes, warm and dry Neurologic: awake Psychiatric: Orientation: oriented to person and cooperative; + not alert (lethargic), + not oriented to place (thinks she is at [facility]) and + not oriented to time (states it is 2009) Genitourinary: Martinez in place; draining urine with visible blood clots Results & Data Vital Signs (Past 12 Hours) Vital Signs Temp Pulse Pulse Resp BP BP Pulse Ox 06/11/19 07:46 36.5 C 60 18 160/82 H 97 06/11/19 04:20 36.8 C 66 19 144/87 H 98 06/11/19 00:27 60 06/10/19 23:20 36.8 C 60 18 128/73 97 Laboratory Results 06/11/19 06/11/19 06/11/19 Range/Units 08:08 07:52 05:49 Ovalocytes PT 30.4 H (9.0-12.0) Seconds INR 3.2 H (0.9-1.1) Sodium (136-145) mmol/L Potassium (3.5-5.1) mmol/L Chloride (98-107) mmol/L Carbon Dioxide (21-32) mmol/L Anion Gap (3-11) BUN (7-18) mg/dl Creatinine 1.01 (0.6-1.2) mg/dl Est Cr Clr Drug Dosing 29.1 ml/min Est GFR ( Amer) 57.6 Est GFR (Non-Af Amer) 49.7 BUN/Creatinine Ratio (10-20) Glucose (70-99) mg/dl POC Glucose 112 H (70-99) Calcium (8.5-10.1) mg/dl 06/10/19 06/10/19 06/10/19 Range/Units 20:19 16:25 11:51 Ovalocytes PT (9.0-12.0) Seconds INR (0.9-1.1) Sodium (136-145) mmol/L Potassium (3.5-5.1) mmol/L Chloride (98-107) mmol/L Carbon Dioxide (21-32) mmol/L Anion Gap (3-11) BUN (7-18) mg/dl Creatinine (0.6-1.2) mg/dl Est Cr Clr Drug Dosing ml/min Est GFR ( Amer) Est GFR (Non-Af Amer) BUN/Creatinine Ratio (10-20) Glucose (70-99) mg/dl POC Glucose 158 H 178 H 180 H (70-99) Calcium (8.5-10.1) mg/dl 06/10/19 06/10/19 Range/Units 08:06 08:06 Ovalocytes 1+ PT (9.0-12.0) Seconds INR (0.9-1.1) Sodium 136 (136-145) mmol/L Potassium 4.1 (3.5-5.1) mmol/L Chloride 98 (98-107) mmol/L Carbon Dioxide 34 H (21-32) mmol/L Anion Gap 4.0 (3-11) BUN 32 H (7-18) mg/dl Creatinine 1.03 (0.6-1.2) mg/dl Est Cr Clr Drug Dosing 32.0 ml/min Est GFR ( Amer) 56.2 Est GFR (Non-Af Amer) 48.5 BUN/Creatinine Ratio 30.9 H (10-20) Glucose 126 H (70-99) mg/dl POC Glucose (70-99) Calcium 9.0 (8.5-10.1) mg/dl PG Care Time/CCT Total # of Minutes Spent Total Time Spent with Patient: Total time spent is greater than 50% in coordination of care (as documented) at patient's floor/unit and/or counseling patient: Resident Activity Tracking Resident Involvement: Resident Care Provided Care Provided: Adult Hospital Medicine (1) UTI (urinary tract infection) Hematuria presence: with hematuria Urinary tract infection type: site unspecified Qualified Code(s): N39.0 - Urinary tract infection, site not specified; R31.9 - Hematuria, unspecified
[2019-06-11] MEDS: INSULIN ASPART 100 UNITS/ML 3 ML PEN SC SCH ×4 (09:01→20:13)
[2019-06-11] MEDS ORDERED: IOVERSOL 100ml IV PRN (10:27)
--- NOTE | 2019-06-11 10:50 | Urology Consultation ---
Date of Consultation June 11, 2019 Assessment & Plan (1) Hematuria: UTI. Currently on cipro based on sens and spec. Continue for 2 weeks. F/U blood cultures. CT scan today shows constipation. Would rec bowel regimen as that may be impacting her bladder function. Leave martinez in place until bowels more regular or atleast 1-2 weeks. Can f/u as outpt for void trial. Hematuria due to over distention of bladder and INR. (2) UTI (urinary tract infection): History of Present Illness Attending Physician: Jose Cordero DO 88 year old female with a past medical history of HTN, DM, CVA, GERD, ALL, and A-fib was admitted several days ago with altered mental status. She normally live fairly independently at an assisted living home. She had poor apeptite and was acting like herself. Upon admission cultures were sent. Urine has grown Citrobacter and first blood cx has grown coag neg staph. During her admission she was having large volume urinary incont. Bladder scan revealed high volume retention. A martinez catheter was placed. There after she had hematuria. Her INR was elevated at that time. CT scan done today. No final read yet. However, appears to have sig fecal loading in colon. Bladder decompressed with thickened wall. Mild hydro/extra renal pelvis on the right. Allergies Allergy/AdvReac Type Severity Reaction Status Date / Time adhesive Allergy Mild IRRITATION Verified 05/12/19 13:49 FROM ECG PATCHES/ LEADS RANJEET Inhibitors Allergy Unknown COUGH Verified 05/12/19 13:49 codeine Allergy Unknown hallucinate Verified 05/12/19 13:49 s morphine Allergy Unknown FEELS HIGH Verified 05/12/19 13:49 prednisone Allergy Unknown unknown Verified 05/12/19 13:49 per daughter Home Medications Home Medications Medication Instructions Recorded Confirmed Type Caltrate 600 plus D 1 tab PO QAM 06/30/18 06/06/19 History atorvastatin 10 mg PO QPM 06/30/18 06/06/19 History cholecalciferol (vitamin D3) 5,000 unit PO QAM 06/30/18 06/06/19 History [Vitamin D3] fluorometholone 1 drp OPB QAM 06/30/18 06/06/19 History furosemide [Lasix] 20 mg PO QAM 06/30/18 06/06/19 History isosorbide mononitrate 30 mg PO QAM 06/30/18 06/06/19 History losartan 25 mg PO QAM 06/30/18 06/06/19 History acetaminophen [Mapap 650 mg PO Q4H PRN #30 tab MDD 3G 02/11/19 06/06/19 Rx (acetaminophen)] docusate sodium 100 mg PO BID #60 cap 02/11/19 06/06/19 Rx polyethylene glycol 3350 [Miralax] 17 g PO DAILY #30 ea 02/11/19 06/06/19 Rx sodium chloride [Saline Mist] 2 sprays NA Q6H #15 ml 02/11/19 06/06/19 Rx aspirin 81 mg PO DAILY 05/01/19 06/06/19 History insulin lispro [Humalog KwikPen 14 unit SUBCUT .JUANCARLOS MEAL 05/01/19 06/06/19 History Insulin] insulin lispro [Humalog KwikPen 18 unit SUBCUT QAM 05/01/19 06/06/19 History Insulin] Lantus Solostar U-100 Insulin 100 26 unit SC HS 90 Days #23.4 box NS 05/02/19 06/06/19 Rx unit/mL (3 mL) subcutaneous pen ascorbate calcium-bioflavonoid 1 tab PO DAILY tab 05/12/19 06/06/19 History 1,000 mg-200 mg tablet benzonatate 100 mg capsule 100 mg PO TID #90 cap 05/12/19 06/06/19 Rx folic acid 800 mcg tablet 800 mcg PO DAILY 05/12/19 06/06/19 History mineral oil oral 15 ml PO DAILY 05/12/19 06/06/19 History metoprolol succinate 100 mg PO BID 06/06/19 06/06/19 History warfarin 1.5 mg PO 4XWK 06/06/19 06/06/19 History warfarin [Coumadin] 3 mg PO 3XWK 06/06/19 06/06/19 History Patient History Medical History Anemia (Chronic) Chronic atrial fibrillation (Chronic) CAD (coronary artery disease), [place] coronary artery (Chronic) Hyperlipidemia (Chronic) Diabetes (Chronic) Hypertension (Chronic) Systolic congestive heart failure (Chronic) ALL (acute lymphoblastic leukemia) Atrial fibrillation Bronchiolitis obliterans organizing pneumonia CKD (chronic kidney disease) stage 3, GFR 30-59 ml/min Diabetes on insulin GERD (gastroesophageal reflux disease) Hearing deficit History of pacemaker Hx of congestive heart failure Hypertension 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 Surgical History Status post corneal transplant (Chronic) Status post transcatheter aortic valve replacement (TAVR) using bioprosthesis (Chronic) H/O colonoscopy H/O: hysterectomy History of cholecystectomy Hx of aortic valve replacement 2016 - [facility] Hx of cornea transplant right and left Hx of tooth extraction Pacemaker Family History Other No pertinent family history Social History Preferred Language: Irish Communication Ability: Effective Seamless Tube Roller Required: No Beliefs That Will Affect Care: None marital status: / Current Living Situation: Family Feels Safe at Home: Yes Safety Concerns: Feels Safe At This Time Smoking Status: Never smoker Second Hand Exposure: No ; Hx Alcohol Use: No Hx Substance Use: No Review of Systems Review of Systems: All systems reviewed & are unremarkable except as noted in HPI & below Physical Exam Constitutional: WD/WN, vitals as above Neck: trachea midline, no thyromegaly Respiratory: normal respiratory effort, lungs clear to auscultation Cardiovascular: RRR, no murmur, no edema Gastrointestinal (Abdomen): Inspection/Auscultation: + abdomen distended Skin: no rashes, warm and dry Neurologic: normal touch/pain/proprioception Genitourinary: martinez in place. urine pink tinged Results & Data Vital Signs (Past 12 Hours) Vital Signs Temp Pulse Pulse Resp BP BP Pulse Ox 06/11/19 07:46 36.5 C 60 18 160/82 H 97 06/11/19 04:20 36.8 C 66 19 144/87 H 98 06/11/19 00:27 60 06/10/19 23:20 36.8 C 60 18 128/73 97 (1) UTI (urinary tract infection) Hematuria presence: with hematuria Urinary tract infection type: site unspecified Qualified Code(s): N39.0 - Urinary tract infection, site not specified; R31.9 - Hematuria, unspecified
--- NOTE | 2019-06-11 10:54 | CT Scan Report ---
CT abd pelvis IV con only CT DOSE: 395.17 mGy.cm HISTORY: hematuria TECHNIQUE: Multiaxial CT images of the abdomen and pelvis were performed following the use of intrave nous contrast. A dose lowering technique was utilized adhering to the principles of ALARA. COMPARISON STUDY: 12/30/2008 FINDINGS: Mild bibasilar atelectatic and/or infiltrative change. Liver spleen and pancreas are unifor m. Extrarenal pelvis of the right kidney with right kidney negative for hydronephrosis. 2 mm nonobstructing upper pole left renal calcification. 2.2 cm exophytic left renal cyst. Bladder is relatively collapsed. There is a significant fecal impaction within the rectum. Is a small amount of presacral cul-de-sac fluid most likely reactive. There are several hyperemic loops of small bowel in the left abdominal region consistent with small bowel enteritis. No evidence for bowel obstruction c hange. Increased fecal load throughout the colon. IMPRESSION: 1. Considerable fecal impaction. 2. Small bowel enteritis. 3. Increased colonic fecal load consistent with fecal stasis. 4. Small left renal cyst unchanged from the prior study. 5. Atherosclerotic change abdominal and pelvic arterial vasculature with atherosclerotic change of th e origin of the celiac axis, superior mesenteric artery, as well as bilateral renal arteries. 6. Small bibasilar parenchymal infiltrative change. The above report was generated using voice recognition software. It may contain grammatical, syntax or spelling errors. Electronically signed by: Karan King M.D. 06/11/2019 10:53 AM
[2019-06-11] MEDS ORDERED: bisacodyL 10 MG SUPP PR STA (11:40)
[2019-06-11] MEDS ORDERED: POLYETHYLENE (MIRALAX) 17 GM PACK PO STA (11:41)
[2019-06-11] MEDS ORDERED: PHYTONADIONE 2.5 MG in SODIUM CHLORIDE 0.9% 50 ML IV ONE (17:15)
[2019-06-11] MEDS: ATORVASTATIN 10 MG TAB PO SCH (20:05)
[2019-06-11] MEDS: INSULIN GLARGINE SOLOSTAR 100 UNITS/ML 3 ML PEN SC SCH (20:14)
[2019-06-12] MEDS: SODIUM CHLORIDE 0.65% NA SOLN 45 ML (OCEAN) SCH ×4 (04:08→21:14)
[2019-06-12 07:15] LABS: Hemoglobin 13.1 g/dL (12.0-16.0); Mean Corpuscular Hemoglobin 22.9 pg (25-34); Mean Corpuscular Hgb Conc 30.5 g/dL (32-36); Platelet Count 198 K/uL (130-400); RDW Coefficient of Variation 17.4 % (11.5-14.5); Red Blood Count 5.73 M/uL (4.2-5.4); White Blood Count 10.37 K/uL (4.8-10.8)
[2019-06-12 07:22] LABS: INR 1.5 (0.9-1.1)
[2019-06-12 08:01] LABS: BUN Creatinine Ratio 31.1 (10-20); Calcium 8.7 mg/dl (8.5-10.1); Creatinine Clr Calc Pharmacy 32.6 ml/min; Est GFR (African American) 66.2; Est GFR (Non-African American) 57.1; Potassium 3.6 mmol/L (3.5-5.1)
--- NOTE | 2019-06-12 08:16 | Family Medicine Progress Note ---
Date of Service June 12, 2019 Assessment & Plan (1) Metabolic encephalopathy: This is an 88-year-old female resident of [facility] admitted on 06/06/19 for altered mental status, found to have a UTI with acute metabolic encephalopathy. On Day 5 of Ciprofloxacin. - UA: cloudy, neg nitrites, 2+ leuk est, 4+ bacteria - urine culture: citrobacter freundii resistant to ceftriaxone - IV ceftriaxone which was started empirically on admission was discontinued and ciprofloxacin (with renal dosing) was started on 06/08; currently on day 5 of cipro. - / blood cultures pending showing growth of coag neg staph not lugdenesis. In the event this represents a contaminant, blood cultures were drawn 06/08 and show no growth through 48 hours - contaminated urine likely represents an infectious etiology of AMS; patient's family is adamant that Ms. Mitchell does NOT have an underlying history of dementia. She lives at [facility], which is NOT a dementia unit, but instead a personal intermediate. Her current altered state is far from her baseline - WBC count remains normal - Electrolytes WNL, LFTs WNL, VBG revealed only minimal elevation of pH to 7.46. - Head CT showed no acute intracranial abnormality - PT/OT ordered; recommended SNF placement post discharge; care management involved Dispo: med/tele FEN/GI: Diabetic diet DVT ppx: on Coumadin, INR 1.5 today; will restart Coumadin today (06/12) at home dose of 3mg CODE STATUS: DNR/DNI as discussed with patient's POA and daughter Gunjan. (2) Hematuria: - patient was having urinary retention followed by subsequent episodes of large incontinent voids - martinez placed and draining urine with many blood clots - patient was supratheraputic on coumadin; however she was given a dose of vit K on 06/11; INR today (06/12) is 1.5 - coumadin restarted at 3mg today 06/12; tomorrow (06/13) give 1.5mg dose. - A/P CT scan with IV contrast ordered: showed no bowel obstruction, but significant fecal impaction with a deflated bladder and evidence of small bowel enteritis. - urology was consulted and recommended 14 day course of cipro and continued use of Martinez catheter for 1-2 weeks post discharge (until patient is having 1-2 soft BMs per day). (3) UTI (urinary tract infection): -likely cause of altered mental status -plan as above (4) Impacted stool in rectum: - visualized on a/p CT scan 06/10 - plan today was for manual disimpaction, however nurse reported 3 BMs last night and 4 so far today; we will hold off on manual disimpaction at this time - continue home Miralax, mineral oil, colace. Dulcolax enema prn (5) Weakness: Likely secondary to above infection; continue antibiotics -PT/OT ordered (6) Chronic atrial fibrillation: - On chronic anticoagulation with coumadin. - INR 1.5 today, down from 3.4 on 06/11; patient given dose of vitamin K 06/11 in anticipation of fecal disimpaction - Goal INR 2.0-2.5 - restarted coumadin today at 3mg dose; alternate with 1.5 mg dose tomorrow (06/13) - follow INR daily (7) Hypertension: - BP 163/84 - Continue home metoprolol 100 twice daily, losartan 25 every morning, Imdur reduced to prior dose of 30mg. - it is possible elevated blood pressures are elevated from discomfort associated with constipation/urinary retention - Electrolytes WNL (8) CAD (coronary artery disease), [place] coronary artery: Continue home aspirin 81mg (9) Status post transcatheter aortic valve replacement (TAVR) using bioprosthesis: (10) Hyperlipidemia: Continue home statin. (11) Diabetes: - Continue home basal insulin dosing. - sliding scale in hospital - Last A1c in January was less than 7 (below goal) (12) Systolic congestive heart failure: continue home dose lasix electrolytes stable (13) Status post corneal transplant: Continue home fluorometholone drops every morning Supervising Physician Co-Signing Physician Notes Patient seen and examined with Dr. Sapp. I agree with their exam findings, review of systems, assessment and plan. I have personally reviewed the lab work and imaging from today. patient is doing better today, she is more alert, not agitated she is moving bowels, she had 4 soft BM according to the RN, no need for disimpaction INR reversed down to 1.5, will resume Coumadin CBC and BMP stable Exam: thin elderly female, NAD, lungs CTA bilaterally, normal effort, alert, oriented to person only, says she is at [facility], thinks it is 2019 heart regular S1 S2 no murmurs abdomen soft, ND, NT, dull to percussion - Acute metabolic encephalopathy: multifactorial with UTI, urinary retention, severe constipation improving slowly, she is oriented to person but other answers are logical needs therapy, needs to get stronger - UTI: culture growing Citrobacter, resistant to Rocephin, changed to Cipro complete 14 days total per urology recommendation - Positive blood culture: coag neg staph, only one set, doubt this is true bacteremia, repeat blood cultures with no growth - Elevated INR: was > 4 on admission, reversed with Vit K 2.5 on 06/11 in anticipation of disimpacting her INR is 1.5, will continue on Coumadin 1.5mg daily she was alternating 3mg and 1.5mg, would simply continue with the 1.5mg daily as her INR > 4 on admission she has had recurrent issues with high INR - HTN: BP better controlled after martinez placed, it was likely that the discomfort was driving her BP up back the Imdur down to 30mg, baseline dose, BP stable - Constipation/Fecal impaction: Miralax and enema PRN finally had 4 BM this morning, soft stool per RN had planned for disimpacting her but can hold off for now - Hematuria: due to bladder distension, UTI and elevated INR no further work up per urology plan for SNF rehab, CM aware and will make referrals Subjective Laying in bed. Says she is doing "okay." Appetite has been improving. Nurse reported patient has had 3 BMs last night and 4 so far today Review of Systems Review of Systems: Difficult to obtain due to lethargy Physical Exam Constitutional: WD/WN, vitals as above Eyes: + anicteric sclerae ENMT: external ear and nose normal, oropharynx normal Neck: trachea midline Respiratory: normal respiratory effort, lungs clear to auscultation Cardiovascular: RRR, no murmur, no edema Heart Sounds: normal S1 and normal S2 Gastrointestinal (Abdomen): Inspection/Auscultation: + abdomen distended and + hypoactive bowel sounds Percussion/Palpation: + tympanic to percussion Skin: no rashes, warm and dry Neurologic: awake Psychiatric: Orientation: oriented to person and cooperative; + not alert (lethargic), + not oriented to place (thinks she is at [facility]) and + not oriented to time (states it is 2020) Genitourinary: + bladder abnormality (bladder distention) Results & Data Vital Signs (Past 12 Hours) Vital Signs Temp Pulse Pulse Resp BP BP Pulse Ox 06/12/19 04:00 36.8 C 61 20 163/84 H 98 06/12/19 00:59 60 06/12/19 00:47 36.9 C 61 136/82 96 Laboratory Results 06/12/19 06/12/19 06/12/19 Range/Units 07:48 06:50 06:50 WBC (4.8-10.8) K/uL RBC (4.2-5.4) M/uL Hgb (12.0-16.0) g/dL Hct (37-47) % MCV (80-100) fL MCH (25-34) pg MCHC (32-36) g/dL RDW Std Deviation (36.4-46.3) fL RDW Coeff of Debora (11.5-14.5) % Plt Count (130-400) K/uL PT 15.0 H (9.0-12.0) Seconds INR 1.5 H (0.9-1.1) Sodium 139 (136-145) mmol/L Potassium 3.6 (3.5-5.1) mmol/L Chloride 101 (98-107) mmol/L Carbon Dioxide 34 H (21-32) mmol/L Anion Gap 4.0 (3-11) BUN 28 H (7-18) mg/dl Creatinine 0.90 (0.6-1.2) mg/dl Est Cr Clr Drug Dosing 32.6 ml/min Est GFR ( Amer) 66.2 Est GFR (Non-Af Amer) 57.1 BUN/Creatinine Ratio 31.1 H (10-20) Glucose 93 (70-99) mg/dl POC Glucose 96 (70-99) Calcium 8.7 (8.5-10.1) mg/dl 06/12/19 06/11/19 06/11/19 Range/Units 06:50 19:54 16:55 WBC 10.37 (4.8-10.8) K/uL RBC 5.73 H (4.2-5.4) M/uL Hgb 13.1 (12.0-16.0) g/dL Hct 43.0 (37-47) % MCV 75.0 L (80-100) fL MCH 22.9 L (25-34) pg MCHC 30.5 L (32-36) g/dL RDW Std Deviation 48.0 H (36.4-46.3) fL RDW Coeff of Debora 17.4 H (11.5-14.5) % Plt Count 198 (130-400) K/uL PT (9.0-12.0) Seconds INR (0.9-1.1) Sodium (136-145) mmol/L Potassium (3.5-5.1) mmol/L Chloride (98-107) mmol/L Carbon Dioxide (21-32) mmol/L Anion Gap (3-11) BUN (7-18) mg/dl Creatinine (0.6-1.2) mg/dl Est Cr Clr Drug Dosing ml/min Est GFR ( Amer) Est GFR (Non-Af Amer) BUN/Creatinine Ratio (10-20) Glucose (70-99) mg/dl POC Glucose 154 H 140 H (70-99) Calcium (8.5-10.1) mg/dl 06/11/19 06/11/19 Range/Units 12:06 08:08 WBC (4.8-10.8) K/uL RBC (4.2-5.4) M/uL Hgb (12.0-16.0) g/dL Hct (37-47) % MCV (80-100) fL MCH (25-34) pg MCHC (32-36) g/dL RDW Std Deviation (36.4-46.3) fL RDW Coeff of Debora (11.5-14.5) % Plt Count (130-400) K/uL PT 30.4 H (9.0-12.0) Seconds INR 3.2 H (0.9-1.1) Sodium (136-145) mmol/L Potassium (3.5-5.1) mmol/L Chloride (98-107) mmol/L Carbon Dioxide (21-32) mmol/L Anion Gap (3-11) BUN (7-18) mg/dl Creatinine (0.6-1.2) mg/dl Est Cr Clr Drug Dosing ml/min Est GFR ( Amer) Est GFR (Non-Af Amer) BUN/Creatinine Ratio (10-20) Glucose (70-99) mg/dl POC Glucose 179 H (70-99) Calcium (8.5-10.1) mg/dl PG Care Time/CCT Total # of Minutes Spent Total Time Spent with Patient: Total time spent is greater than 50% in coordination of care (as documented) at patient's floor/unit and/or counseling patient: Resident Activity Tracking Resident Involvement: Resident Care Provided Care Provided: Adult Hospital Medicine (1) UTI (urinary tract infection) Hematuria presence: with hematuria Urinary tract infection type: site unspecified Qualified Code(s): N39.0 - Urinary tract infection, site not specified; R31.9 - Hematuria, unspecified
[2019-06-12] MEDS: FLUOROMETHOLONE 0.1% OP SCH (08:18)
[2019-06-12] MEDS: CIPROFLOXACIN 500 MG TAB PO SCH ×2 (08:18→21:12)
[2019-06-12] MEDS: KONDREMUL 480ML PO SCH (08:18)
[2019-06-12] MEDS: FOLIC ACID 400 MCG TAB PO SCH (08:19)
[2019-06-12] MEDS: DOCUSATE SODIUM 100 MG CAP PO SCH ×2 (08:19→21:13)
[2019-06-12] MEDS: CALCIUM 600MG + VIT D 400 IU TAB PO SCH (08:19)
[2019-06-12] MEDS: ASPIRIN 81 MG ECTAB PO SCH (08:19)
[2019-06-12] MEDS: METOPROLOL SUCC 50MG EXT REL TAB PO SCH ×2 (08:19→21:13)
[2019-06-12] MEDS: LOSARTAN POTASSIUM 25 MG TAB PO SCH (08:19)
[2019-06-12] MEDS: ISOSORBIDE MONO EXTENDED REL 30 MG TABCR PO SCH (08:19)
[2019-06-12] MEDS: BENZONATATE 100 MG CAPSULE PO SCH ×3 (08:20→21:14)
[2019-06-12] MEDS: POLYETHYLENE (MIRALAX) 17 GM PACK PO SCH (08:20)
[2019-06-12] MEDS: INSULIN ASPART 100 UNITS/ML 3 ML PEN SC SCH ×4 (08:35→21:15)
[2019-06-12] MEDS: ACETAMINOPHEN 325 MG TAB PO PRN (10:44)
[2019-06-12] MEDS: WARFARIN SOD 3 MG TAB PO SCH (17:08)
[2019-06-12] MEDS: ATORVASTATIN 10 MG TAB PO SCH (21:14)
[2019-06-12] MEDS: INSULIN GLARGINE SOLOSTAR 100 UNITS/ML 3 ML PEN SC SCH (21:16)
[2019-06-13] MEDS: SODIUM CHLORIDE 0.65% NA SOLN 45 ML (OCEAN) SCH ×4 (05:21→22:33)
[2019-06-13 07:04] LABS: INR 1.2 (0.9-1.1); Prothrombin Time 12.1 Seconds (9.0-12.0)
[2019-06-13] MEDS: CARBOHYDRATES FOR HYPOGLYCEMIA PO PRN (07:55)
[2019-06-13] MEDS: KONDREMUL 480ML PO SCH (08:02)
[2019-06-13] MEDS: POLYETHYLENE (MIRALAX) 17 GM PACK PO SCH (08:02)
[2019-06-13] MEDS: INSULIN ASPART 100 UNITS/ML 3 ML PEN SC SCH ×4 (08:02→21:27)
[2019-06-13] MEDS: DOCUSATE SODIUM 100 MG CAP PO SCH ×2 (08:04→21:54)
[2019-06-13] MEDS: CALCIUM 600MG + VIT D 400 IU TAB PO SCH (08:04)
[2019-06-13] MEDS: ISOSORBIDE MONO EXTENDED REL 30 MG TABCR PO SCH (08:04)
[2019-06-13] MEDS: FLUOROMETHOLONE 0.1% OP SCH (08:05)
[2019-06-13] MEDS: METOPROLOL SUCC 50MG EXT REL TAB PO SCH ×2 (08:05→21:51)
[2019-06-13] MEDS: BENZONATATE 100 MG CAPSULE PO SCH ×3 (08:05→21:54)
[2019-06-13] MEDS: ASPIRIN 81 MG ECTAB PO SCH (08:05)
[2019-06-13] MEDS: FOLIC ACID 400 MCG TAB PO SCH (08:06)
[2019-06-13] MEDS: CIPROFLOXACIN 500 MG TAB PO SCH ×2 (08:06→21:54)
[2019-06-13] MEDS: LOSARTAN POTASSIUM 25 MG TAB PO SCH (08:06)
--- NOTE | 2019-06-13 15:34 | Family Medicine Progress Note ---
Date of Service June 13, 2019 Assessment & Plan (1) Metabolic encephalopathy: This is an 88-year-old female resident of [facility] admitted on 06/06/19 for altered mental status, found to have a UTI with acute metabolic encephalopathy. On Day 5 of Ciprofloxacin. Metabolic Encephalopathy - Head CT showed no acute intracranial abnormality -Likely secondary to UTI UTI - UA: cloudy, neg nitrites, 2+ leuk est, 4+ bacteria - urine culture: citrobacter freundii resistant to ceftriaxone - IV ceftriaxone which was started empirically on admission was discontinued and ciprofloxacin (with renal dosing) was started on 06/08; currently on day 02/04 of Cipro. - 1/2 blood cultures pending showing growth of coag neg staph not lugdenesis. likely contaminant. Hematuria - patient was having urinary retention followed by subsequent episodes of large incontinent voids - Mayes placed and draining urine with many blood clots - Per Urology, likely secondary to bladder distention with elevated INR, no further intervention at this time. - Urology was consulted and recommended 14 day course of cipro and continued use of Mayes catheter for 1-2 weeks post discharge (until patient is having 1-2 soft BMs per day). -Patient has been noted to have more bowel movements including the 2 this morning. - Currently on day 02/04 of treatment with Cipro. Impaction Stool in rectum - visualized on a/p CT scan 06/10 - continue home Miralax, mineral oil, colace. Dulcolax enema prn - Patient and nursing noted 4 BMs yesterday and 2 this AM. Chronic Atrial Fibrillation - On chronic anticoagulation with Coumadin. - INR 1.2 today. - Goal INR 2.0-2.5 - restarted Coumadin today at 3mg dose yesterday with expectation of 1.5mg dose today. -Since INR decreased to 1.2 from 1.5, will continue 3mg dose today and follow INR daily. Hypertension - BP 135/74 currently - Continue home metoprolol 100 twice daily, losartan 25 every morning, Imdur reduced to prior dose of 30mg. - It is possible elevated blood pressures are elevated from discomfort associated with constipation/urinary retention - Will continue to monitor as patient's constipation/urinary retention resolve. CAD Continue home aspirin 81mg Hyperlipidemia -Continue home statin. DM - Continue home basal insulin dosing. - sliding scale in hospital - Last A1c in January was less than 7 (below goal) Chronic Systolic CHF - continue home dose lasix S/P Corneal Transplant - Continue home fluorometholone drops every morning Dispo: med/tele - PT/OT ordered; recommended SNF placement post discharge; care management involved - Patient planning on being discharged to [facility] after evaluation by PT/OT -Per PT's note, patient was too lethargic today to participate, will attempt again tomorrow and wait for recommendations then. FEN/GI: Diabetic diet DVT ppx: on Coumadin, INR 1.2 today; Continue with 3mg and daily INR checks. CODE STATUS: DNR/DNI as discussed with patient's POA and daughter Gunjan. (2) Hematuria: (3) UTI (urinary tract infection): (4) Impacted stool in rectum: (5) Weakness: (6) Chronic atrial fibrillation: (7) Hypertension: (8) CAD (coronary artery disease), [place] coronary artery: (9) Hyperlipidemia: (10) Diabetes: (11) Systolic congestive heart failure: (12) Status post corneal transplant: Supervising Physician Co-Signing Physician Notes Resident Physician Supervision Note: I independently interviewed and examined the patient and verified the lake history and physical, reviewed labs and image studies, discussed the case with the resident Dr. Guzman and agree with the findings and care plan. Subjective Patient examined at the bedside this AM. Patient was noted to be fairly lethargic, but was arousable to answer questions. She did note that she was unsure of why she continued to have a Mayes Catheter even though she had been passing bowel movements. She stated that she was able to pass 2x bowel movements this morning each with roughly 3 small sized formed stools. She denies any pain currently. Review of Systems Constitutional: + fatigue and + weakness; no fever and no chills Eyes: no photophobia Respiratory: no cough, no chest congestion and no dyspnea Cardiovascular: no chest pain Gastrointestinal: no abdominal pain and no nausea Genitourinary: no dysuria and no flank pain Neurologic: no headache(s) Physical Exam Constitutional: well developed and + lethargic; no acute distress ENMT: external ear and nose normal, oropharynx normal Neck: trachea midline, no thyromegaly trachea midline Respiratory: normal respiratory effort, lungs clear to auscultation Cardiovascular: Rate/Rhythm: regular rate (paced) and regular rhythm Heart Sounds: + murmur (2/6 L 2nd intercostal space ) Gastrointestinal (Abdomen): Inspection/Auscultation: abdomen normal to inspection and normal bowel sounds; abdomen not distended Percussion/[place] on: abdomen soft; abdomen nontender and no guarding Skin: normal turgor Neurologic: awake (Arousable to wake and answer questions, goes back to sleep shortly after) Genitourinary: Mayes Catheter in place Results & Data Vital Signs (Past 12 Hours) Vital Signs Temp Pulse Resp BP Pulse Ox 06/13/19 11:56 36.1 C L 60 16 147/74 H 93 06/13/19 07:32 36.8 C 61 16 201/73 H 90 06/13/19 05:36 71 151/83 H 06/13/19 03:40 36.7 C 81 20 176/97 H 91 Laboratory Results Abnormal lab results 06/12/19 06/12/19 06/13/19 Range/Units 16:38 20: 06:33 PT 12.1 H (9.0-12.0) Seconds INR 1.2 H (0.9-1.1) POC Glucose 123 H 176 H (70-99) 06/13/19 06/13/19 06/13/19 Range/Units 07:44 07:45 08:33 PT (9.0-12.0) Seconds INR (0.9-1.1) POC Glucose 64 L* 64 L* 246 H (70-99) 06/13/19 Range/Units 11:34 PT (9.0-12.0) Seconds INR (0.9-1.1) POC Glucose 140 H (70-99) Medications Administered Current Inpatient Medications Acetaminophen (Tylenol) 650 mg PO Q4H PRN PRN Reason: pain Stop: 07/06/19 22:04 Last Admin: 06/12/19 10:44 Dose: 650 mg Documented by: Al Hydrox/Mg Hydrox/Simethicone (Maalox) 15 ml PO Q4H PRN PRN Reason: Dyspepsia Stop: 07/06/19 22:04 Last Admin: 06/09/19 05:59 Dose: 15 ml Documented by: Aspirin (Ecotrin Ectab) 81 mg PO DAILY [facility] Stop: 07/07/19 08:59 Last Admin: 06/13/19 08:05 Dose: 81 mg Documented by: Atorvastatin Calcium (Lipitor) 10 mg PO QPM [facility] Stop: 07/06/19 22:04 Last Admin: 06/12/19 21:14 Dose: 10 mg Documented by: Benzonatate (Tessalon Perle) 100 mg PO TID [facility] Stop: 07/06/19 22:04 Last Admin: 06/13/19 15:22 Dose: 100 mg Documented by: Ciprofloxacin (Cipro) 500 mg PO Q12 [facility]; Protocol Stop: 06/18/19 09:29 Last Admin: 06/13/19 08:06 Dose: 500 mg Documented by: Dextrose (Dextrose 50%) 25 - 50 ml IV UD PRN; Protocol PRN Reason: Hypoglycemia Protocol Stop: 07/06/19 22:04 Docusate Sodium (Colace) 100 mg PO BID [facility] Stop: 07/06/19 22:04 Last Admin: 06/13/19 08:04 Dose: 100 mg Documented by: Folic Acid (Folvite) 800 mcg PO DAILY [facility] Stop: 07/07/19 08:59 Last Admin: 06/13/19 08:06 Dose: 800 mcg Documented by: Furosemide (Lasix) 20 mg PO QAM [facility] Stop: 07/08/19 08:59 Last Admin: 06/10/19 09:38 Dose: 20 mg Documented by: Glucagon (Glucagen) 1 mg SQ UD PRN; Protocol PRN Reason: Hypoglycemia Protocol Stop: 07/06/19 22:04 Glucose (Glucose 40%) 15 - 30 gm PO UD PRN; Protocol PRN Reason: Hypoglycemia Protocol Stop: 07/06/19 22:04 Glucose (Dex4 Glucose) 4 - 8 tabs PO UD PRN; Protocol PRN Reason: Hypoglycemia Protocol Stop: 07/06/19 22:04 Insulin Aspart (Novolog Flexpen) 0 units SC ACHS [facility] Stop: 07/06/19 22:04 Last Admin: 06/13/19 12:52 Dose: Not Given Documented by: Insulin Glargine (Lantus Solostar Pen) 26 units SC HS [facility] Stop: 07/06/19 22:04 Last Admin: 06/12/19 21:16 Dose: 26 units Documented by: Ioversol (Optiray 320 100ml) 91 ml IV ONCE PRN PRN Reason: Interaction Checking Stop: 06/15/19 10:26 Last Admin: 06/11/19 10:27 Dose: 91 ml Documented by: Isosorbide Mononitrate (Imdur Extended Rel) 30 mg PO QAM [facility] Stop: 07/11/19 08:59 Last Admin: 06/13/19 08:04 Dose: 30 mg Documented by: Losartan Potassium (Cozaar) 25 mg PO QAM [facility] Stop: 07/07/19 08:59 Last Admin: 06/13/19 08:06 Dose: 25 mg Documented by: Magnesium Hydroxide (Milk Of Magnesia) 30 ml PO Q12H PRN PRN Reason: Constipation Stop: 07/06/19 22:04 Last Admin: 06/08/19 18:43 Dose: 30 ml Documented by: Metoprolol Succinate (Toprol Xl) 100 mg PO BID [facility] Stop: 07/06/19 22:04 Last Admin: 06/13/19 08:05 Dose: 100 mg Documented by: Mineral Oil (Kondremul) 15 ml PO DAILY [facility] Stop: 07/07/19 11:59 Last Admin: 06/13/19 08:02 Dose: 15 ml Documented by: Miscellaneous (Carbohydrates For Hypoglycemia) 15 - 30 gm PO UD PRN PRN Reason: Hypoglycemia Treatment Stop: 07/06/19 22:04 Last Admin: 06/13/19 07:55 Dose: 15 gm Documented by: Multivitamins/Minerals (Caltrate Plus) 1 tab PO QAM [facility] Stop: 07/07/19 08:59 Last Admin: 06/13/19 08:04 Dose: 1 tab Documented by: Flurometholone 0.1% Drops - Non- Formulary Patient's Own Med 1 ea OP DAILY [facility] Stop: 07/08/19 08:59 Last Admin: 06/13/19 08:05 Dose: 1 drops Documented by: Polyethylene Glycol (Miralax Powder Packet) 17 gm PO DAILY [facility] Stop: 07/07/19 08:59 Last Admin: 06/13/19 08:02 Dose: 17 gm Documented by: Sodium Chloride ([place] Nasal) 2 sprays NA Q6H [facility] Stop: 07/06/19 22:04 Last Admin: 06/13/19 08:06 Dose: 2 sprays Documented by: Warfarin Sodium (Coumadin) 3 mg PO DAILY@1600 [facility] Stop: 07/12/19 15:59 Last Admin: 06/12/19 17:08 Dose: 3 mg Documented by: PG Care Time/CCT Total # of Minutes Spent Total Time Spent with Patient: Total time spent is greater than 50% in coordination of care (as documented) at patient's floor/unit and/or counseling patient: Resident Activity Tracking Resident Involvement: Resident Care Provided Care Provided: Adult Hospital Medicine (1) UTI (urinary tract infection) Hematuria presence: with hematuria Urinary tract infection type: site unspecified Qualified Code(s): N39.0 - Urinary tract infection, site not specified; R31.9 - Hematuria, unspecified
[2019-06-13] MEDS: WARFARIN SOD 3 MG TAB PO SCH (17:14)
[2019-06-13] MEDS: ACETAMINOPHEN 325 MG TAB PO PRN (17:14)
[2019-06-13] MEDS: INSULIN GLARGINE SOLOSTAR 100 UNITS/ML 3 ML PEN SC SCH (21:27)
[2019-06-13] MEDS: ATORVASTATIN 10 MG TAB PO SCH (21:54)
[2019-06-14] MEDS: SODIUM CHLORIDE 0.65% NA SOLN 45 ML (OCEAN) SCH ×4 (04:56→21:41)
[2019-06-14 06:21] LABS: INR 1.2 (0.9-1.1); Prothrombin Time 12.5 Seconds (9.0-12.0)
[2019-06-14] MEDS: CARBOHYDRATES FOR HYPOGLYCEMIA PO PRN (07:50)
[2019-06-14] MEDS: LOSARTAN POTASSIUM 25 MG TAB PO SCH (08:00)
[2019-06-14] MEDS: METOPROLOL SUCC 50MG EXT REL TAB PO SCH ×2 (08:00→20:56)
[2019-06-14] MEDS: ISOSORBIDE MONO EXTENDED REL 30 MG TABCR PO SCH (08:00)
[2019-06-14] MEDS: BENZONATATE 100 MG CAPSULE PO SCH ×3 (08:01→20:56)
[2019-06-14] MEDS: ASPIRIN 81 MG ECTAB PO SCH (08:01)
[2019-06-14] MEDS: DOCUSATE SODIUM 100 MG CAP PO SCH ×2 (08:01→20:55)
[2019-06-14] MEDS: FOLIC ACID 400 MCG TAB PO SCH (08:01)
[2019-06-14] MEDS: CALCIUM 600MG + VIT D 400 IU TAB PO SCH (08:01)
[2019-06-14] MEDS: FLUOROMETHOLONE 0.1% OP SCH (08:01)
[2019-06-14] MEDS: CIPROFLOXACIN 500 MG TAB PO SCH ×2 (08:01→20:55)
[2019-06-14] MEDS: POLYETHYLENE (MIRALAX) 17 GM PACK PO SCH (08:02)
[2019-06-14] MEDS: INSULIN ASPART 100 UNITS/ML 3 ML PEN SC SCH ×4 (08:40→20:56)
[2019-06-14 09:22] LABS: BUN Creatinine Ratio 34.7 (10-20); Calcium 8.7 mg/dl (8.5-10.1); Creatinine Clr Calc Pharmacy 38.4 ml/min; Potassium 3.8 mmol/L (3.5-5.1)
[2019-06-14] MEDS: KONDREMUL 480ML PO SCH (10:58)
--- NOTE | 2019-06-14 12:34 | Family Medicine Progress Note ---
Date of Service June 14, 2019 Results & Data Vital Signs (Past 12 Hours) Vital Signs Temp Pulse Pulse Resp BP Pulse Ox 06/14/19 11:27 36.3 C L 60 20 171/97 H 98 06/14/19 07:40 60 06/14/19 07:37 36.4 C L 65 20 152/85 H 91 06/14/19 03:27 36.7 C 60 18 157/79 H 95 PG Care Time/CCT Total # of Minutes Spent Total Time Spent with Patient: Total time spent is greater than 50% in coordination of care (as documented) at patient's floor/unit and/or counseling patient:
--- NOTE | 2019-06-14 15:14 | Family Medicine Progress Note ---
Date of Service June 14, 2019 Assessment & Plan (1) Metabolic encephalopathy: This is an 88-year-old female resident of [facility] admitted on 06/06/19 for altered mental status, found to have a UTI with acute metabolic encephalopathy. On Day 7 of Ciprofloxacin. Metabolic Encephalopathy -Head CT showed no acute intracranial abnormality -Likely secondary to UTI -Patient mostly returned to baseline at this point in time. Still does note increased tiredness and somnolence. UTI - urine culture: citrobacter freundii resistant to ceftriaxone - IV ceftriaxone which was started empirically on admission was discontinued and ciprofloxacin (with renal dosing) was started on 06/08; currently on day 03/06 of Cipro. - Blood cultures finalized with only 1/3 culture showing growth of coag neg staph not lugdenesis. likely contaminant. Urinary retention secondary to impacted stool and hematuria - Appears that gross hematuria has resolved at this point as urine in martinez bag is primarily yellow and clear. - patient was having urinary retention followed by subsequent episodes of large incontinent voids. - Martinez placed and draining urine with many blood clots. - Per Urology, likely secondary to bladder distention with elevated INR, no further intervention at this time. - Urology was consulted and recommended 14 day course of cipro and continued use of Martinez catheter for 1-2 weeks post discharge (until patient is having 1-2 soft BMs per day). -Patient noted forming more stools and had a BM this morning. Impaction Stool in rectum - visualized on a/p CT scan 06/10 - continue home Miralax, mineral oil, colace. Dulcolax enema prn - Patient noting having a BM this morning that was a formed stool. Chronic Atrial Fibrillation - On chronic anticoagulation with Coumadin. - INR 1.2 today. - Goal INR 2.0-2.5 -Continue Coumadin at 3mg dosing until closer to goal INR. -Patient typically takes Coumadin at home at 3mg and 1.5mg every other day. Hypertension - BP 134/75 currently - Continue home metoprolol 100 twice daily, losartan 25 every morning, Imdur reduced to prior dose of 30mg. - It is possible elevated blood pressures are elevated from discomfort associated with constipation/urinary retention - Will continue to monitor as patient's constipation/urinary retention resolve. CAD -Continue home aspirin 81mg -Continue home isosorbide mononitrate 30mg QAM Hyperlipidemia -Continue home statin. DM - Home basal insulin dosing QHS reduced from 26 to 21 units as patient has been having hypoglycemic mornings the past 2 mornings. - sliding scale in hospital - Last A1c in January was less than 7 (below goal) Chronic Systolic CHF - continue home dose lasix S/P Corneal Transplant - Continue home fluorometholone drops every morning Dispo: med/tele - PT/OT ordered; recommended SNF placement post discharge; care management involved - Patient planning on being discharged to [facility] after evaluation by PT. FEN/GI: Diabetic diet DVT ppx: on Coumadin, INR 1.2 today; Continue with 3mg and daily INR checks. CODE STATUS: DNR/DNI as discussed with patient's POA and daughter Gunjan. (2) Hematuria: (3) UTI (urinary tract infection): (4) Impacted stool in rectum: (5) Weakness: (6) Chronic atrial fibrillation: (7) Hypertension: (8) CAD (coronary artery disease), [place] coronary artery: (9) Hyperlipidemia: (10) Diabetes: (11) Systolic congestive heart failure: (12) Status post corneal transplant: Supervising Physician Co-Signing Physician Notes Resident Physician Supervision Note: I independently interviewed and examined the patient and verified the [place] history and physical, reviewed labs and image studies, discussed the case with the resident Dr. Guzman and agree with the findings and care plan. Subjective Patient was seen and examined while seated in her chair today. She noted that she was feeling "OK" and more awake and also that she felt as though she had to have a bowel movement shortly. She continued to deny any pain today. Review of Systems Constitutional: + fatigue and + daytime sleepiness; no fever and no chills Eyes: no photophobia and no worsening vision Respiratory: no cough, no dyspnea, no hemoptysis, no pain on inspiration and no wheezing Cardiovascular: no chest pain, no dyspnea, no dyspnea on exertion and no palpitations Gastrointestinal: no abdominal pain, no nausea, no vomiting and no blood in stools Genitourinary: no dysuria, no hematuria and no flank pain Musculoskeletal: + muscle weakness Physical Exam Constitutional: well developed and + lethargic; no acute distress ENMT: external ear and nose normal, oropharynx normal Ears: + hearing impairment Neck: trachea midline, no thyromegaly trachea midline Respiratory: normal respiratory effort, lungs clear to auscultation Cardiovascular: Rate/Rhythm: regular rate (paced) and regular rhythm Heart Sounds: + murmur (2/6 L 2nd intercostal space ) Gastrointestinal (Abdomen): Inspection/Auscultation: abdomen normal to inspection and normal bowel sounds; abdomen not distended Percussion/Pa lpation: abdomen soft; abdomen nontender and no guarding Skin: normal turgor Neurologic: awake (Arousable to wake and answer questions, goes back to sleep shortly after) Psychiatric: Orientation: alert, oriented to person and oriented to time Eye Contact: + fair eye contact Affect: + flat affect Genitourinary: Martinez catheter in place draining dark yellow fluid. Results & Data Vital Signs (Past 12 Hours) Vital Signs Temp Pulse Pulse Resp BP Pulse Ox 06/14/19 14:58 60 06/14/19 11:27 36.3 C L 60 20 171/97 H 98 06/14/19 07:40 60 06/14/19 07:37 36.4 C L 65 20 152/85 H 91 06/14/19 03:27 36.7 C 60 18 157/79 H 95 Laboratory Results Abnormal lab results 06/13/19 06/14/19 06/14/19 Range/Units 20:01 05:59 05:59 PT 12.5 H (9.0-12.0) Seconds INR 1.2 H (0.9-1.1) Carbon Dioxide 33 H (21-32) mmol/L BUN 29 H (7-18) mg/dl BUN/Creatinine Ratio 34.7 H (10-20) Glucose 48 L* (70-99) mg/dl POC Glucose 122 H (70-99) 06/14/19 06/14/19 06/14/19 Range/Units 07:39 07:41 09:26 PT (9.0-12.0) Seconds INR (0.9-1.1) Carbon Dioxide (21-32) mmol/L BUN (7-18) mg/dl BUN/Creatinine Ratio (10-20) Glucose (70-99) mg/dl POC Glucose 48 L* 57 L* 160 H (70-99) 06/14/19 Range/Units 11:19 PT (9.0-12.0) Seconds INR (0.9-1.1) Carbon Dioxide (21-32) mmol/L BUN (7-18) mg/dl BUN/Creatinine Ratio (10-20) Glucose (70-99) mg/dl POC Glucose 120 H (70-99) Medications Administered Current Inpatient Medications Acetaminophen (Tylenol) 650 mg PO Q4H PRN PRN Reason: pain Stop: 07/06/19 22:04 Last Admin: 06/13/19 17:14 Dose: 650 mg Documented by: Al Hydrox/Mg Hydrox/Simethicone (Maalox) 15 ml PO Q4H PRN PRN Reason: Dyspepsia Stop: 07/06/19 22:04 Last Admin: 06/09/19 05:59 Dose: 15 ml Documented by: Aspirin (Ecotrin Ectab) 81 mg PO DAILY [facility] Stop: 07/07/19 08:59 Last Admin: 06/14/19 08:01 Dose: 81 mg Documented by: Atorvastatin Calcium (Lipitor) 10 mg PO QPM [facility] Stop: 07/06/19 22:04 Last Admin: 06/13/19 21:54 Dose: 10 mg Documented by: Benzonatate (Tessalon Perle) 100 mg PO TID [facility] Stop: 07/06/19 22:04 Last Admin: 06/14/19 13:37 Dose: 100 mg Documented by: Ciprofloxacin (Cipro) 500 mg PO Q12 [facility]; Protocol Stop: 06/18/19 09:29 Last Admin: 06/14/19 08:01 Dose: 500 mg Documented by: Dextrose (Dextrose 50%) 25 - 50 ml IV UD PRN; Protocol PRN Reason: Hypoglycemia Protocol Stop: 07/06/19 22:04 Docusate Sodium (Colace) 100 mg PO BID [facility] Stop: 07/06/19 22:04 Last Admin: 06/14/19 08:01 Dose: 100 mg Documented by: Folic Acid (Folvite) 800 mcg PO DAILY [facility] Stop: 07/07/19 08:59 Last Admin: 06/14/19 08:01 Dose: 800 mcg Documented by: Furosemide (Lasix) 20 mg PO QAM [facility] Stop: 07/08/19 08:59 Last Admin: 06/10/19 09:38 Dose: 20 mg Documented by: Glucagon (Glucagen) 1 mg SQ UD PRN; Protocol PRN Reason: Hypoglycemia Protocol Stop: 07/06/19 22:04 Glucose (Glucose 40%) 15 - 30 gm PO UD PRN; Protocol PRN Reason: Hypoglycemia Protocol Stop: 07/06/19 22:04 Glucose (Dex4 Glucose) 4 - 8 tabs PO UD PRN; Protocol PRN Reason: Hypoglycemia Protocol Stop: 07/06/19 22:04 Insulin Aspart (Novolog Flexpen) 0 units SC ACHS [facility] Stop: 07/06/19 22:04 Last Admin: 06/14/19 13:04 Dose: Not Given Documented by: Insulin Glargine (Lantus Solostar Pen) 21 units SC HS [facility] Stop: 07/14/19 20:59 Ioversol (Optiray 320 100ml) 91 ml IV ONCE PRN PRN Reason: Interaction Checking Stop: 06/15/19 10:26 Last Admin: 06/11/19 10:27 Dose: 91 ml Documented by: Isosorbide Mononitrate (Imdur Extended Rel) 30 mg PO QAM [facility] Stop: 07/11/19 08:59 Last Admin: 06/14/19 08:00 Dose: 30 mg Documented by: Losartan Potassium (Cozaar) 25 mg PO QAM [facility] Stop: 07/07/19 08:59 Last Admin: 06/14/19 08:00 Dose: 25 mg Documented by: Magnesium Hydroxide (Milk Of Magnesia) 30 ml PO Q12H PRN PRN Reason: Constipation Stop: 07/06/19 22:04 Last Admin: 06/08/19 18:43 Dose: 30 ml Documented by: Metoprolol Succinate (Toprol Xl) 100 mg PO BID [facility] Stop: 07/06/19 22:04 Last Admin: 06/14/19 08:00 Dose: 100 mg Documented by: Mineral Oil (Kondremul) 15 ml PO DAILY [facility] Stop: 07/07/19 11:59 Last Admin: 06/14/19 10:58 Dose: 15 ml Documented by: Miscellaneous (Carbohydrates For Hypoglycemia) 15 - 30 gm PO UD PRN PRN Reason: Hypoglycemia Treatment Stop: 07/06/19 22:04 Last Admin: 06/14/19 07:50 Dose: 30 gm Documented by: Multivitamins/Minerals (Caltrate Plus) 1 tab PO QAM [facility] Stop: 07/07/19 08:59 Last Admin: 06/14/19 08:01 Dose: 1 tab Documented by: Flurometholone 0.1% Drops - Non- Formulary Patient's Own Med 1 ea OP DAILY [facility] Stop: 07/08/19 08:59 Last Admin: 06/14/19 08:01 Dose: 1 drops Documented by: Polyethylene Glycol (Miralax Powder Packet) 17 gm PO DAILY [facility] Stop: 07/07/19 08:59 Last Admin: 06/14/19 08:02 Dose: 17 gm Documented by: Sodium Chloride ([place] Nasal) 2 sprays NA Q6H [facility] Stop: 07/06/19 22:04 Last Admin: 06/14/19 15:58 Dose: 2 sprays Documented by: Warfarin Sodium (Coumadin) 3 mg PO DAILY@1600 [facility] Stop: 07/12/19 15:59 Last Admin: 06/14/19 15:57 Dose: 3 mg Documented by: PG Care Time/CCT Total # of Minutes Spent Total Time Spent with Patient: Total time spent is greater than 50% in coordination of care (as documented) at patient's floor/unit and/or counseling patient: Resident Activity Tracking Resident Involvement: Resident Care Provided Care Provided: Adult Hospital Medicine (1) UTI (urinary tract infection) Hematuria presence: with hematuria Urinary tract infection type: site unspecified Qualified Code(s): N39.0 - Urinary tract infection, site not specified; R31.9 - Hematuria, unspecified
[2019-06-14] MEDS: WARFARIN SOD 3 MG TAB PO SCH (15:57)
[2019-06-14] MEDS: ATORVASTATIN 10 MG TAB PO SCH (20:55)
[2019-06-14] MEDS ORDERED: INSULIN GLARGINE SOLOSTAR 100 UNITS/ML 3 ML PEN SC SCH (21:00)
[2019-06-15] MEDS: SODIUM CHLORIDE 0.65% NA SOLN 45 ML (OCEAN) SCH ×3 (04:15→16:02)
[2019-06-15 06:13] LABS: INR 1.6 (0.9-1.1); Prothrombin Time 15.8 Seconds (9.0-12.0)
[2019-06-15 06:24] LABS: BUN Creatinine Ratio 26.2 (10-20); Calcium 8.6 mg/dl (8.5-10.1); Creatinine Clr Calc Pharmacy 36.6 ml/min; Est GFR (African American) 68.9; Est GFR (Non-African American) 59.5; Potassium 4.5 mmol/L (3.5-5.1)
[2019-06-15] MEDS: DOCUSATE SODIUM 100 MG CAP PO SCH (08:51)
[2019-06-15] MEDS: ISOSORBIDE MONO EXTENDED REL 30 MG TABCR PO SCH (08:51)
[2019-06-15] MEDS: FOLIC ACID 400 MCG TAB PO SCH (08:51)
[2019-06-15] MEDS: BENZONATATE 100 MG CAPSULE PO SCH ×2 (08:52→13:53)
[2019-06-15] MEDS: ASPIRIN 81 MG ECTAB PO SCH (08:52)
[2019-06-15] MEDS: METOPROLOL SUCC 50MG EXT REL TAB PO SCH (08:53)
[2019-06-15] MEDS: CALCIUM 600MG + VIT D 400 IU TAB PO SCH (08:53)
[2019-06-15] MEDS: CIPROFLOXACIN 500 MG TAB PO SCH (08:53)
[2019-06-15] MEDS: FLUOROMETHOLONE 0.1% OP SCH (08:54)
[2019-06-15] MEDS: KONDREMUL 480ML PO SCH (08:54)
[2019-06-15] MEDS: POLYETHYLENE (MIRALAX) 17 GM PACK PO SCH (08:54)
[2019-06-15] MEDS: INSULIN ASPART 100 UNITS/ML 3 ML PEN SC SCH ×2 (08:56→12:35)
[2019-06-15] MEDS: LOSARTAN POTASSIUM 25 MG TAB PO SCH (09:16)
[2019-06-15 12:32] VITALS: TEMP 97.7
--- NOTE | 2019-06-15 14:49 | Discharge Summary ---
Date of Service June 15, 2019 Admission HPI Per Admitting Provider This is an 88-year-old female resident of [place] who presents to the ER due to several days of somnolence and found to have a UTI. Past medical history is significant for a LL, atrial fibrillation, CKD stage III, insulin-dependent diabetes type 2, GERD, pacemaker, hypertension, status post aortic valve replacement in 2016. Daughter provides much of the history as patient is sleepy and is also mild to moderate demented at baseline. States she has been sleeping more than regularly the last several days, especially today. Also notes urinary incontinence for the last few days which is not her baseline either. Cannot endorse other signs or symptoms of infection like cough or chest pain, does not note any focal weakness although patient does have history of a stroke in 2016 with residual weakness on the right side. 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 ED course: Given 1 L normal saline bolus, Rocephin. Admission Exam Per Admitting Provider Vitals noted and within normal limits with the exception of mild hypertension GENERAL: Somnolent but arousable, alert to person, not to place, and not to time, nontoxic-appearing, in no distress. HENT: Normocephalic, atraumatic. Mucus membranes appear dry. EYES: Normal conjunctiva. Sclera non-icteric. EOMI. NECK: Supple. Full range of motion. No JVD. RESPIRATORY: Clear to auscultation. Normal work of breathing. CARDIAC: Regular rate, normal rhythm. Extremities warm and well perfused, 2+ radial pulses bilaterally; 2+ posterior tibialis pulses bilaterally. ABDOMEN: Soft, non-distended. No tenderness to palpation in all four quadrants. No rebound or guarding. No masses. Bowel sounds are normal. LOWER EXTREMITIES: Inspection of calves reveal equal size bilaterally. They are non-tender. No edema. No discoloration. NEURO: No gross focal motor deficits noted. Sensation in tact. CN II-XII grossly in tact. . SKIN: Rash not present. No jaundice noted. Significant lesions not present. PSYCH: Appropriate mood and affect. Cooperative. Examined while patient's daughter Gunjan at the bedside. Exam as done by Lucita Gordon MD, Field Representatives Director. Principal Diagnosis Complicated UTI Discharge Exam Constitutional well developed and + lethargic; no acute distress Eyes + anicteric sclerae, PERRL and EOM intact bilaterally ENMT external ear and nose normal, oropharynx normal Ears: + hearing impairment Neck trachea midline, no thyromegaly trachea midline Respiratory normal respiratory effort, lungs clear to auscultation Cardiovascular Rate/Rhythm: regular rate (paced) and regular rhythm Heart Sounds: + murmur (2/6 L 2nd intercostal space ) Gastrointestinal (Abdomen) Inspection/Auscultation: abdomen normal to inspection and normal bowel sounds; abdomen not distended Percussion/Palpation: abdomen soft; abdomen nontender and no guarding Skin normal turgor Neurologic awake (Arousable to wake and answer questions, goes back to sleep shortly after) Psychiatric Orientation: alert, oriented to person and oriented to time Eye Contact: + fair eye contact Affect: + flat affect Genitourinary Mayes catheter in place draining yellow urine. Discharge Data Allergies Allergy/AdvReac Type Severity Reaction Status Date / Time adhesive Allergy Mild IRRITATION Verified 05/12/19 13:49 FROM ECG PATCHES/ LEADS RANJEET Inhibitors Allergy Unknown COUGH Verified 05/12/19 13:49 codeine Allergy Unknown hallucinate Verified 05/12/19 13:49 s morphine Allergy Unknown FEELS HIGH Verified 05/12/19 13:49 prednisone Allergy Unknown unknown Verified 05/12/19 13:49 per daughter Consultations 06/06/19 19:25 ED Decision to Admit Stat 06/06/19 22:05 Consult Case Management - Discharge Planning Routine 06/10/19 10:40 Consult Urology Routine Ordered Studies 06/06/19 17:11 CT head/brain wo con Stat 06/11/19 09:25 CT abd pelvis IV con only Routine Hospital Course (1) Metabolic encephalopathy: This is an 88-year-old female resident of [facility] admitted on 06/06/19 for altered mental status, found to have a UTI with acute metabolic encephalopathy. Metabolic Encephalopathy -Head CT showed no acute intracranial abnormality -Likely secondary to UTI -Resolved. UTI - urine culture: citrobacter freundii resistant to ceftriaxone - Blood cultures finalized with only 1/3 culture showing growth of coag neg staph not lugdenesis. likely contaminant. - IV ceftriaxone which was started empirically on admission was discontinued and ciprofloxacin (with renal dosing) was started on 06/08 - Patient to continue Ciprofloxacin 500mg BID x 6 days after discharge with next dose being tonight (06/15/19). Urinary retention secondary to impacted stool and hematuria - patient was having urinary retention followed by subsequent episodes of large incontinent voids. - Mayes placed initially drained urine with many blood clots. - Per Urology, hematuria was likely secondary to bladder distention with elevated INR, no further intervention required. - Gross hematuria resolved. - Urology was consulted and recommended 14 day course of cipro and continued use of Mayes catheter for 1-2 weeks post discharge (until patient is having 1-2 soft BMs per day). - Urology also recommend outpatient follow up for void trial. - Continue Mayes catheter upon D/C Impaction Stool in rectum - visualized on a/p CT scan 06/10 - continued home Miralax, mineral oil, colace. Dulcolax enema prn - Patient moving bowels well at d/c Chronic Atrial Fibrillation - On chronic anticoagulation with Coumadin. - INR 1.6 upon discharge - Goal INR 2.0-2.5 - Continue Warfarin alternating dose 1.5mg and 3mg daily. Received 3mg prior to discharge today. - Recheck INR in 2-3 days after discharge. Hypertension - Continued home metoprolol 100 twice daily, losartan 25 every morning, Imdur reduced to prior dose of 30mg. CAD -Continued home aspirin 81mg -Continued home isosorbide mononitrate 30mg QAM Hyperlipidemia -Continued home statin. DM - Home basal insulin dosing QHS was reduced from 26 to 21 units as patient was noted to have hypoglycemic mornings. - Return to home dosing upon D/C - sliding scale while in hospital - Last A1c in January was less than 7 (below goal) Chronic Systolic CHF - continued home dose lasix S/P Corneal Transplant - Continued home fluorometholone drops every morning Dispo: D/C to [facility] today for SNF placement FEN/GI: Diabetic diet DVT ppx via Coumadin CODE STATUS: DNR/DNI as discussed with patient's POA and daughter Gunjan. (2) Hematuria: (3) UTI (urinary tract infection): (4) Impacted stool in rectum: (5) Weakness: (6) Chronic atrial fibrillation: (7) Hypertension: (8) CAD (coronary artery disease), [place] coronary artery: (9) Hyperlipidemia: (10) Diabetes: (11) Systolic congestive heart failure: (12) Status post corneal transplant: Total Time Total Time Spent Total Time Spent (In Minutes): see attending attestation Discharge Plan Discharge Items Patient Disposition: Transfer Half-Way Fac Reason For Visit: COMPLICATED UTI Discharge Diagnosis: Urinary Tract Infection Condition on Discharge: Good Goals: Continued Physical Therapy Activity: As commented below Activity Comment: As directed by physical and occupational therapy Non-emergency contact: Primary Care Provider Call non-emergency contact if: you have any medication questions and your temperature is above 101 Follow-up/Referrals: ILYA PAIZ [Primary Care Provider] - Diet: Carb Consistent or DM2 Addtl Attending Provider Instructions: Admitted to [facility] on 06/06/19 -06/15/19 for a urinary tract infection (UTI). UTI Treated with ciprofloxacin; WBC normalized Continue ciprofloxacin 500mg twice daily for another 6 days after discharge. Next dose is tonight A prescription was provided to you for the remaining course of ciprofloxacin. UTI likely from not completely emptying bladder with each void - known as "urinary retention." Urology consulted - recommended keeping the Mayes catheter in place for 1-2 weeks after discharge. Follow up as an outpatient for a void trial Stool impaction: CT abdomen - significant stool impaction Treated with Miralax, mineral oil, a stool softener and an enema Now moving bowels well Continue home colace, miralax and mineral oil as prescribed Confusion: Concern for confusion, change in baseline mental status per family prior to admission likely from the UTI We anticipate resolution of this confusion upon treatment of your UTI and return to your familiar environment Cyst on Left Kidney CT abdomen and pelvis revealed 2.2cm cyst on left kidney. The cyst was also visualized on a past CT scan and had not grown in the interval between the scans. Therefore, the radiologist thought the cyst was likely benign, or non- cancerous. Chronic Atrial Fibrillation INR goal should range from 2.0-2.5. As of discharge today, INR was found to be 1.6 close to goal. Continue Warfarin alternating dose 1.5mg and 3mg daily. Today received 3mg. Recheck INR in 2-3 days CAD/HLD/TAVR bioprosthetic Continue home atorvastatin, aspirin Diabetes 2 insulin dependent Continue home insulin regimen with humalog and lantus HTN Continue home metoprolol, lisinopril, Imdur and Lasix Pending Studies at Discharge: No Stand-Alone Forms: [facility] Skilled Items Patient informed of condition?: Yes DNR: Yes Discharge Level of Care: Skilled Communicable Disease: No Discharge Prognosis: Stable Lines: None Urinary Catheter: No Medications and DC Order Prescriptions: New ciprofloxacin HCl 500 mg Tablet 500 mg PO Q12 Qty: 13 RF: 0 Continued Lantus Solostar U-100 Insulin 100 unit/mL (3 mL) insulin pen 26 unit SC HS 90 Days Qty: 23.4 RF: 3 folic acid 800 mcg tablet 800 mcg PO DAILY RF: 0 [place]ba-C with Bioflavonoids 1,000-200 mg tablet 1 tab PO DAILY RF: 0 benzonatate [Tessalon Perles] 100 mg capsule 100 mg PO TID Qty: 90 RF: 1 mineral oil oil 15 ml PO DAILY RF: 0 acetaminophen [Mapap (acetaminophen)] 325 mg Tablet 650 mg PO Q4H MDD 3G PRN (Reason: pain) Qty: 30 RF: 0 sodium chloride [Saline Mist] 0.65 % Aerosol,[place] 2 sprays NA Q6H Qty: 15 RF: 0 docusate sodium 100 mg Capsule 100 mg PO BID Qty: 60 RF: 0 polyethylene glycol 3350 [Miralax] 17 gram Powder In Packet 17 g PO DAILY Qty: 30 RF: 0 aspirin 81 mg Tablet,Chewable 81 mg PO DAILY RF: 0 insulin lispro [Humalog KwikPen Insulin] 100 unit/mL insulin pen 18 unit subcut QAM RF: 0 insulin lispro [Humalog KwikPen Insulin] 100 unit/mL insulin pen 14 unit subcut .JUANCARLOS MEAL RF: 0 atorvastatin 10 mg Tablet 10 mg PO QPM RF: 0 fluorometholone 0.25 % Drops,Suspension 1 drp OPB QAM RF: 0 isosorbide mononitrate 30 mg Tablet Extended Release 24 Hr 30 mg PO QAM RF: 0 losartan 25 mg Tablet 25 mg PO QAM RF: 0 furosemide [Lasix] 20 mg Tablet 20 mg PO QAM RF: 0 cholecalciferol (vitamin D3) [Vitamin D3] 5,000 unit Tablet 5,000 unit PO QAM RF: 0 Caltrate 600 plus D 600 mg (1,500 mg)-800 unit Tablet,Chewable 1 tab PO QAM RF: 0 metoprolol succinate 100 mg tablet extended release 24 hr 100 mg PO BID RF: 0 warfarin [Coumadin] 3 mg tablet 3 mg PO 3XWK RF: 0 warfarin 3 mg tablet 1.5 mg PO 4XWK RF: 0 Discharge Orders: Discharge Order (Routine); Ordered 06/15/19 Ordered By: Nayeli Macias Admission Data Admit Date/Time: 06/08/19 12:16 Attending Provider: Malinda Mason Admit Provider: Lucita Gordon Primary Care Provider: ILYA PAIZ Other Providers: Benji Caicedo ; Gil Pollard ; Jose Cordero Other Interventions: Discharge Summary Assessment (RN) Last Done: 06/15/19 13:59 DC Date/Time DO NOT enter until pt leaves facility: 06/15/19 16:45 Supervising Physician Co-Signing Physician Notes Resident Physician Supervision Note: I independently interviewed and examined the patient and verified the lake history and physical, reviewed labs and image studies, discussed the case with the resident Dr. Guzman and agree with the findings and care plan. Resident Activity Tracking Resident Involvement: Resident Care Provided Care Provided: Adult Hospital Medicine
[2019-06-15] MEDS: WARFARIN SOD 3 MG TAB PO SCH (16:00)
[2019-06-15 16:05] VITALS: BP 156/83; PULSE 59; O2SAT 99
== END 2019-06-15 16:45 | DRG 689 ==
LOC: ED 16:59 → 2N 16:59 → SUATTDRO 20:30 → 2N 21:46 → SUATTDRO 06-08 12:16